=== PATIENT | female | born 1935 | race Caucasian/White ===

== ENCOUNTER 2016-08-18 11:50 | Inpatient (IN) | payer OTHER ==
[~2016-08-18] VITALS: Ht 149.9 cm; Wt 96.5 kg
[2016-08-18] VITALS (11 sets, daily range): BP systolic 107–153; BP diastolic 59–81; PULSE 73–97; TEMP 36.7–37.7; O2SAT 91–97; Ht 149.9 cm; Wt 96.5 kg
[~2016-08-18 11:50] MED LIST: ACET325T96 PO; ASPI325T45 PO; BUME1TAB PO; CHOL1000 PO; CYAN10005 PO; ISOS60TA25 PO; METO50TA16 PO; PHEN16.2 PO; PHN/100 PO; PRED-301 PO
[2016-08-18] MEDS ORDERED: SODIUM CHLORIDE 0.9% 500ML 500 ML IV STA (12:18)
[2016-08-18 12:29] LABS: BASO % 0.2 %; BASO ABS # 0.03 K/uL (0-0.2); COMPLETE YES; HEMATOCRIT 40.6 % (37-47); IG% 0.1 %; LYMPH % 14.6 %; LYMPH ABS # 2.08 K/uL (1.2-3.4); MEAN CELL VOLUME 96.9 fL (80-100); MEAN CORPUSCULAR HEMOGLOBIN 33.2 pg (25-34); MEAN CORPUSCULAR HGB CONC 34.2 g/dl (32-36); MEAN PLATELET VOLUME 10.5 fL (7.4-10.4); MONO % 9.5 %; NEUT % 71.6 %; PLATELET COUNT 307 K/uL (130-400); RED BLOOD COUNT 4.19 M/uL (4.2-5.4); WHITE BLOOD COUNT 14.24 K/uL (4.8-10.8)
[2016-08-18] MEDS ORDERED: NITROGLYCERIN 0.4 MG SL PER TAB CHARGE SL PRN ×2 (12:30→14:15)
[2016-08-18 12:35] LABS: BLOOD UREA NITROGEN 14 mg/dl (7-18); CALCIUM 9.2 mg/dl (8.5-10.1); CARBON DIOXIDE 30 mmol/L (21-32); CHLORIDE 104 mmol/L (98-107); GLUCOSE 124 mg/dl (70-99); POTASSIUM 4.2 mmol/L (3.5-5.1); SODIUM 141 mmol/L (136-145)
[2016-08-18 12:36] LABS: CREATININE 0.87 mg/dl (0.60-1.20)
[2016-08-18 12:37] LABS: BUN/CREATININE RATIO 16.2 (10-20)
--- NOTE | 2016-08-18 12:38 | DIAGNOSTIC IMAGING REPORT ---
SINGLE VIEW CHEST CLINICAL HISTORY: Atypical chest pain. FINDINGS: An AP, portable, upright chest radiograph is compared to study dated 02/17/2010. The examination is degraded by portable technique and apical lordotic positioning. The heart is enlarged and there is atherosclerotic calcification of the thoracic aorta. The pulmonary vasculature is noncongested. Chronic interstitial thickening similar to previous. No airspace consolidation, pleural effusion, or pneumothorax is seen. The skeletal structures are osteopenic. The bony thorax is grossly intact. Degenerative change and scoliosis are noted in the thoracic spine. A surgical anchor is present in the left humeral head. IMPRESSION: Cardiomegaly with no active disease in the chest. Electronically signed by: Raúl Canela M.D. 08/18/2016 12:37 PM Dictated Date/Time: 08/18/2016 12:36 PM
[2016-08-18 13:05] LABS: ALKALINE PHOSPHATASE 97 U/L (45-117); ALT/SGPT 15 U/L (12-78); AST/SGOT 23 U/L (15-37); CKMB/CK RATIO 4.2 (0-3.0)
[2016-08-18] MEDS ORDERED: HEPARIN SOD (PORCINE) 1000 UNIT/ML 10 ML VIAL ONE (13:21)
[2016-08-18] MEDS ORDERED: NiCARDipine HCL INJ 2.5 MG/ML 10 ML AMP ONE (13:21)
[2016-08-18] MEDS ORDERED: FENTANYL CITRATE INJ 50 MCG/1 ML 2 ML VIAL ONE (13:22)
[2016-08-18] MEDS ORDERED: MIDAZOLAM HCL 1 MG/ML 2ML VIAL ONE (13:22)
[2016-08-18] MEDS ORDERED: NITROGLYCERIN/D5W 100MCG/ML 20ML SYR ONE (13:23)
[2016-08-18] MEDS ORDERED: RANITIDINE HCL 25 MG/ML INJ ONE (13:38)
[2016-08-18] MEDS ORDERED: DiphenhydrAMINE HCL 50 MG/ML VIAL ONE (13:38)
[2016-08-18] MEDS ORDERED: METHYLPREDNISOLONE 125 MG VIAL ONE (13:38)
[2016-08-18] MEDS ORDERED: ONDANSETRON INJ 2 MG/ML 2 ML VIAL IV PRN (14:15)
[2016-08-18] MEDS ORDERED: SODIUM CHLORIDE 0.9% 1000ML 1,000 ML IV SCH (14:15)
--- NOTE | 2016-08-18 15:59 | CARDIOLOGY CONSULTATION ---
DATE OF CONSULTATION: 08/18/2016 DATE OF CONSULTATION: 08/18/2016. CONSULTATION REQUESTED BY: Dr. Ravi in the Emergency Department. REASON FOR CONSULTATION: Chest pain, high risk NSTEMI. HISTORY OF PRESENT ILLNESS: Ms. Wood is an 80-year-old woman with a history of polymyalgia rheumatica, hypertension, hyperlipidemia, prior TIA, who presented today in the setting of acute onset of chest pain. The patient states that she had been in her usual state of health. She does endorse that she has been recently stressed taking care of her . This morning she woke up with some chest tightness. Over the course of the morning that has progressed to 2 more severe pain 8/10 with pain radiating to her neck and left arm. Pain persisted for more than 3 hours before EMS was contacted. En route, she received sublingual nitroglycerin and received her third sublingual nitroglycerin in the Emergency Department with improvement in the pain 2-3/10 at time of interview. The patient denies having significant symptoms prior to this. No other prior history of coronary artery disease or heart issues. She did undergo heart catheterization back in 1999. PAST MEDICAL HISTORY: 1. Epilepsy. 2. TIA. 3. Hypertension. 4. Hiatal hernia. 5. Diverticulitis. 6. Peptic ulcer disease. 7. Hyperlipidemia. FAMILY HISTORY: Father had an NE in his late 40s or early 50s, has had multiple siblings with premature coronary artery disease. SOCIAL HISTORY: Lifelong never smoker. Denies significant alcohol use. 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 Primary caregiver for her sick . REVIEW OF SYSTEMS: A 10 point review of systems was not completed due to an urgent situation. HOME MEDICATIONS: Include Tylenol, aspirin, Bumex, cholecalciferol, vitamin B12, Imdur, metoprolol, phenobarbital, phenytoin and prednisone. ALLERGIES: AZITHROMYCIN, IODINE, SULFA AND SULFAMETHOXAZOLE. PHYSICAL EXAMINATION: VITAL SIGNS: Temperature 36.7, pulse 88, blood pressure 146/78. She is satting 94% on room air. GENERAL: The patient appears comfortable, no acute distress. HEAD, EYES, EARS, NOSE, AND THROAT: Her sclerae are anicteric. Oropharynx clear. Mucous membranes are moist. NECK: Supple with no lymphadenopathy. No clear jugular venous distention. LUNGS: Clear to auscultation bilaterally. HEART: Regular rate and rhythm with no appreciable murmurs, rubs or gallops. ABDOMEN: Soft, nontender, nondistended with positive bowel sounds. EXTREMITIES: Warm. She has trace lower extremity edema but has intact distal pulses including 2+ radial pulses bilaterally. SKIN: Shows no rashes or lesions. NEUROLOGIC: Grossly nonfocal. PSYCHIATRIC: He is alert and oriented and appropriate. LABORATORY DATA: White blood cell count 14.2, platelets 307, hemoglobin of 13.9. Sodium 141, potassium of 4.2, BUN of 14. LFTs within normal limits. Initial troponin positive at 0.66. Chest x-ray showed no acute cardiopulmonary process. EKG showed sinus rhythm with left axis deviation. Ventricular rate of 91. There are subtle ST elevations in V2 through V4 with diffuse T-wave inversions in the anterolateral leads. IMPRESSION AND PLAN: 1. High risk [id number] elevation myocardial infarction. 2. Borderline diabetes. 3. Hypertension. 4. Hyperlipidemia. 5. Prior history of transient ischemic attack. The patient here with typical angina, acute onset this morning. She has dynamic ST changes and a positive troponin on presentation. As the patient is having active chest pain feel that we should proceed with cardiac catheterization urgently. Discussed this with the patient including risks, benefits and alternatives to the procedure. She is willing to proceed. The patient has a questionable dye allergy in the past and will plan to pretreat prior to procedure. Further recommendations pending findings of cardiac catheterization. Thank you for allowing us to participate in the care of this patient. Please contact with any questions. MEENAKSHI
[2016-08-18] MEDS ORDERED: HEPARIN 25,000 UNIT/500ML D5W 500 ML IV PRN (16:30)
[2016-08-18 16:56] LABS: PARTIAL THROMBOPLASTIN RATIO 0.9
--- NOTE | 2016-08-18 17:23 | EMERGENCY ROOM VISIT NOTE ---
History Report prepared by Yevgeniy: Claudia Nguyen Under the Supervision of: Dr. Florin Ravi D.O. First contact with patient: 12:08 Chief Complaint: CHEST PAIN Stated Complaint: CHEST PAIN History of Present Illness The patient is a 80 year old female who presents to the Emergency Room with complaints of an episode of chest pain that began at 4 hours prior to arrival. She describes the pain as sharp and heavy. She notes the pain radiates up her neck and around to her shoulder and back. The patient notes that she was laying in bed when the pain began. The patient has a family history of cardiac events. She took 4 baby Aspirin before calling EMS. En route to the ED she was given Nitro which helped to relieve the chest pain. She denies pain down her arm. The patient has a history of hypertension and 2 strokes. Pt denies headache, change in vision, fevers, shortness of breath, nausea, vomiting, diarrhea, pain with urination, and melena. 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 A total of 10 systems reviewed and were otherwise negative. Past Medical & Surgical Medical Problems: (1) Diabetes (2) Diverticulitis (3) Hypertension (4) Seizure (5) Stomach ulcer Family History Diabetes mellitus FH: heart disease Hypertension Seizures Social History Smoking Status: Never Smoker Alcohol Use: none Drug Use: none Marital Status: Housing Status: lives with significant other Occupation Status: unemployed Current/Historical Medications Scheduled Aspirin (Aspirin), 325 MG PO DAILY Bumetanide (Bumex), 1 MG PO DAILY Cholecalciferol (Vitamin D3), 1 TAB PO DAILY Cyanocobalamin (Vitamin B-12), 1,000 MCG PO DAILY Isosorbide Mononitrate Ext Rel (Imdur Ext Rel), 60 MG PO QAM Metoprolol Tartrate (Lopressor) (Lopressor), 50 MG PO BID Phenobarbital (Phenobarbital), 2 TABS PO BID Phenytoin Sodium (Dilantin), 200 MG PO QPM Prednisone (Prednisone), 5 MG PO QAM Miscellaneous Medications Acetaminophen Tab (Tylenol), 650 MG PO Allergies Coded Allergies: Azithromycin (Verified Allergy, Intermediate, UNKNOWN, 06/22/15) Iodine (Verified Allergy, Mild, 06/22/15) Sulfa Antibiotics (Verified Allergy, Mild, `, 08/18/16) Sulfamethoxazole (Verified Allergy, Mild, 06/22/15) Physical Exam Vital Signs Date Time Temp Pulse Resp B/P Pulse Ox O2 Delivery O2 Flow Rate FiO2 08/18/16 14:30 93 16 133/68 95 Room Air 08/18/16 14:23 96 16 123/67 95 Room Air 08/18/16 14:08 96 16 145/84 95 Room Air 08/18/16 13:25 89 22 171/95 95 08/18/16 13:16 89 22 171/95 95 08/18/16 13:15 99 23 95 08/18/16 13:11 174/102 08/18/16 13:06 140/80 08/18/16 13:01 137/73 08/18/16 13:00 93 12 96 08/18/16 12:51 93 20 117/69 92 Room Air 08/18/16 12:45 91 20 142/77 96 Room Air 08/18/16 12:13 93 Room Air 08/18/16 12:04 86 08/18/16 12:00 36.7 88 22 146/78 94 Room Air 08/18/16 12:00 93 Room Air Physical Exam GENERAL: alert, sitting up in bed, disheveled appearing, well nourished, no distress, non-toxic EYE EXAM: normal conjunctiva OROPHARYNX: no exudate, no erythema, lips, buccal mucosa, and tongue normal and mucous membranes are moist NECK: supple, no nuchal rigidity, no adenopathy, non-tender LUNGS: Clear to auscultation. Normal chest wall mechanics HEART: systolic murmurs, S1 normal and S2 normal ABDOMEN: abdomen soft, non-tender, normo-active bowel sounds, no masses, no rebound or guarding. BACK: Back is symmetrical on inspection and there is no deformity, no midline tenderness, no CVA tenderness. SKIN: no rashes and no bruising UPPER EXTREMITIES: upper extremities are grossly normal. radial pulses equal bilaterally LOWER EXTREMITIES: Calves equal bilaterally. Faint putting edema. NEURO EXAM: Normal sensorium, cranial nerves II-XII grossly intact, normal speech, no gross weakness of arms, no gross weakness of legs. Medical Decision & Procedures ER Provider Diagnostic Interpretation: [id number]: A Chest One view study was reviewed, no fracture was seen. SINGLE VIEW CHEST CLINICAL HISTORY: Atypical chest pain. FINDINGS: An AP, portable, upright chest radiograph is compared to study dated 02/17/2010. The examination is degraded by portable technique and apical lordotic positioning. The heart is enlarged and there is atherosclerotic calcification of the thoracic aorta. The pulmonary vasculature is noncongested. Chronic interstitial thickening similar to previous. No airspace consolidation, pleural effusion, or pneumothorax is seen. The skeletal structures are osteopenic. The bony thorax is grossly intact. Degenerative change and scoliosis are noted in the thoracic spine. A surgical anchor is present in the left humeral head. IMPRESSION: Cardiomegaly with no active disease in the chest. Electronically signed by: Raúl Canela M.D. 08/18/2016 12:37 PM Dictated Date/Time: 08/18/2016 12:36 PM Laboratory Results 08/18/16 11:15 Red Blood Count 4.19, Mean Corpuscular Volume 96.9, Mean Corpuscular Hemoglobin 33.2, Mean Corpuscular Hemoglobin Concent 34.2, Mean Platelet Volume 10.5, Neutrophils (%) (Auto) 71.6, Lymphocytes (%) (Auto) 14.6, Monocytes (%) (Auto) 9.5, Eosinophils (%) (Auto) 4.0, Basophils (%) (Auto) 0.2, Neutrophils # (Auto) 10.19, Lymphocytes # (Auto) 2.08, Monocytes # (Auto) 1.35, Eosinophils # (Auto) 0.57, Basophils # (Auto) 0.03 08/18/16 11:15 Test 08/18/16 11:15 White Blood Count 14.24 K/uL (4.8-10.8) Red Blood Count 4.19 M/uL (4.2-5.4) Hemoglobin 13.9 g/dL (12.0-16.0) Hematocrit 40.6 % (37-47) Mean Corpuscular Volume 96.9 fL (80-100) Mean Corpuscular Hemoglobin 33.2 pg (25-34) Mean Corpuscular Hemoglobin Concent 34.2 g/dl (32-36) Platelet Count 307 K/uL (130-400) Mean Platelet Volume 10.5 fL (7.4-10.4) Neutrophils (%) (Auto) 71.6 % Lymphocytes (%) (Auto) 14.6 % Monocytes (%) (Auto) 9.5 % Eosinophils (%) (Auto) 4.0 % Basophils (%) (Auto) 0.2 % Neutrophils # (Auto) 10.19 K/uL (1.4-6.5) Lymphocytes # (Auto) 2.08 K/uL (1.2-3.4) Monocytes # (Auto) 1.35 K/uL (0.11-0.59) Eosinophils # (Auto) 0.57 K/uL (0-0.5) Basophils # (Auto) 0.03 K/uL (0-0.2) RDW Standard Deviation 48.4 fL (36.4-46.3) RDW Coefficient of Variation 13.6 % (11.5-14.5) Immature Granulocyte % (Auto) 0.1 % Immature Granulocyte # (Auto) 0.02 K/uL (0.00-0.02) Anion Gap 7.0 mmol/L (3-11) Est Creatinine Clear Calc Drug Dose 50.9 ml/min Estimated GFR () 72.9 Estimated GFR (Non- 62.9 BUN/Creatinine Ratio 16.2 (10-20) Calcium Level 9.2 mg/dl (8.5-10.1) Total Bilirubin 0.6 mg/dl (0.2-1) Direct Bilirubin < 0.1 mg/dl (0-0.2) Aspartate Amino Transf (AST/SGOT) 23 U/L (15-37) Alanine Aminotransferase (ALT/SGPT) 15 U/L (12-78) Alkaline Phosphatase 97 U/L (45-117) Total Creatine Kinase 127 U/L (26-192) Creatine Kinase MB 5.3 ng/ml (0.5-3.6) Creatine Kinase MB Ratio 4.2 (0-3.0) Troponin I 0.660 ng/ml (0-0.045) Total Protein 8.0 gm/dl (6.4-8.2) Albumin 3.8 gm/dl (3.4-5.0) Laboratory results per my review. Medications Administered Medications (Trade) Dose Ordered Sig/Jazlyn Route Start Time Stop Time Status Last Admin Dose Admin Nitroglycerin 0.4 mg 0.4 mg Q5M PRN SL 08/18/16 12:30 08/18/16 15:13 DC 08/18/16 12:44 0.4 MG Sodium Chloride (Nss 500ml) 500 ml @ 999 mls/hr Q31M STAT IV 08/18/16 12:18 08/18/16 12:48 DC 08/18/16 12:47 999 MLS/HR Heparin Sodium (Porcine) (Heparin Iv Bolus) 10,000 unit STK-MED ONCE .ROUTE 08/18/16 13:21 08/18/16 13:22 DC 08/18/16 13:21 5,000 UNIT Fentanyl Citrate (Fentanyl Inj) 100 mcg STK-MED ONCE .ROUTE 08/18/16 13:22 08/18/16 13:23 DC 08/18/16 13:22 25 MCG Midazolam HCl (Versed Inj) 2 mg STK-MED ONCE .ROUTE 08/18/16 13:22 08/18/16 13:23 DC 08/18/16 13:22 1 MG Ranitidine HCl (zANTac IV) 50 mg STK-MED ONCE .ROUTE 08/18/16 13:38 08/18/16 13:39 DC 08/18/16 13:38 50 MG Methylprednisolone Sodium Succinate (Solu-Medrol IV) 125 mg STK-MED ONCE .ROUTE 08/18/16 13:38 08/18/16 13:39 DC 08/18/16 13:38 125 MG Diphenhydramine HCl 50 mg 50 mg STK-MED ONCE .ROUTE 08/18/16 13:38 08/18/16 13:39 DC 08/18/16 13:50 25 MG Sodium Chloride (Nss 1000ml) 1,000 ml @ 75 mls/hr [id number] IV 08/18/16 14:15 08/18/16 20:54 08/18/16 15:00 75 MLS/HR ECG Indication: chest pain Rate (beats per minute): 91 Rhythm: normal sinus Findings: other (left axis, flipped T wave, slight ST elevation) ED Course ED COURSE: Vital signs were reviewed and showed hypertensive vitals. The patients medical record was reviewed The above diagnostic studies were performed and reviewed. ED treatments and interventions as stated above. 1211: The patient was evaluated in room C11. A complete history and physical examination was performed. 1218: Sodium Chloride 500 ml @ 999 mls/hr IV. 1230: Nitrostat Tab 0.4 mg SL. 1258: I spoke with Dr. Coppola - Cardiology. He will come take the patient to livestock laborer. 1311: I reviewed the patient's case with Dr. Ferguson. She will evaluate the patient for further management. She is aware the patient is going to the livestock laborer with Dr. Coppola. 1320: Upon reevaluation, the patient is hemodynamically stable.I discussed my findings with the patient and she understands and agrees with the treatment plan. Based on the patients age, coexisting illnesses, exam and lab findings the decision to treat as an inpatient was made. The patient remained stable while under my care. The patient will be evaluated for further management. Medical Decision Differential diagnoses includes but is not limited to acute coronary syndrome, myocardial infarction, pericarditis, pulmonary embolus, aortic dissection, pneumonia, pneumothorax, musculoskeletal, shingles, esophageal. The patient is a 80 year old female who presents to the ED with complaints of chest pain associated with left arm pain and jaw pain. EKG shows slight ST segment elevation in the anterior leads along with flipped T waves. Labs were remarkable for a mild leukocytosis and a troponin of 0.6. Based on the EKG and following nitroglycerin without improvement initially the process improvement manager was called but I did not receive a call back and consequently I called the interventionalist. Patient was evaluated at bedside by Dr. Coppola and taken emergently to the [facility]. Patient had received aspirin prior to arrival. Patient/family were updated at bedside. Consults Time Called: [phone] Consulting Physician: Dr. Coppola - Cardiology Returned Call: [phone] Coppola - Cardiology. He will come take the patient to livestock laborer. Additional Consults: Time Called: 1310 Consulted Physician: Dr. Ferguson - [facility] Returned Call: [phone] Additional Comments: I reviewed the patient's case with Dr. Ferguson. She will evaluate the patient for further management. She is aware the patient is going to the livestock laborer with Dr. Coppola. Impression Primary Impression: NSTEMI (non-ST elevated myocardial infarction) Scribe Attestation The scribe's documentation has been prepared under my direction and personally reviewed by me in its entirety. I confirm that the note above accurately reflects all work, treatment, procedures, and medical decision making performed by me. Departure Information Dispostion Being Evaluated By Hospitalist Referrals Jerad Wolfe M.D. (PCP)
--- NOTE | 2016-08-18 17:29 | Procedure Note ---
Pre-Mod Sedation Assessment General Date of Moderate Sedation: August 18, 2016. Vital Signs: Vital Signs Past 12 Hours Date Time Temp Pulse Resp B/P Pulse Ox O2 Delivery O2 Flow Rate FiO2 08/18/16 16:15 37.3 83 22 112/59 92 Room Air 08/18/16 15:45 37.1 86 22 107/66 95 Room Air 08/18/16 15:30 37.7 91 22 135/75 91 Room Air 08/18/16 15:15 37.5 87 22 118/74 96 Room Air 08/18/16 15:00 36.7 93 16 140/68 95 Room Air 08/18/16 15:00 37.7 90 22 126/70 95 Room Air 08/18/16 14:40 93 16 140/68 95 Room Air 08/18/16 14:30 93 16 133/68 95 Room Air 08/18/16 14:23 96 16 123/67 95 Room Air 08/18/16 14:08 96 16 145/84 95 Room Air 08/18/16 13:25 89 22 171/95 95 08/18/16 13:16 89 22 171/95 95 08/18/16 13:15 99 23 95 08/18/16 13:11 174/102 08/18/16 13:06 140/80 08/18/16 13:01 137/73 08/18/16 13:00 93 12 96 08/18/16 12:51 93 20 117/69 92 Room Air 08/18/16 12:45 91 20 142/77 96 Room Air 08/18/16 12:13 93 Room Air 08/18/16 12:04 86 08/18/16 12:00 36.7 88 22 146/78 94 Room Air 08/18/16 12:00 93 Room Air Review Cardiovascular: regular rate, rhythm, no edema Abdomen: normal bowel sounds, non tender Lungs: chest non-tender, lungs clear Airway Class: II Pre-Sedation Airway Assessment Oral Cavity: WNL Able to Visualize Vocal Cords: No Short Thick Neck: No Hx of Sleep Apnea: No Smoking Status: Never Smoker Mallampati Classification: Class II ASA Classification: Class II Procedure Planning Contraindications-for Mod Sed: None Yes Notes The planned sedation has been discussed with the patient and consent obtained. I have identified the patient, determined the appropriateness of sedation and have assessed the patient immediately prior to the procedure. All medicine(s) and interventions are by my order.
[2016-08-18] MEDS ORDERED: BUMETANIDE 1 MG TAB PO ONE (17:30)
--- NOTE | 2016-08-18 17:31 | Procedure Note ---
Post-Mod Sedation Assessment General Date of Moderate Sedation August 18, 2016. Vital Signs: Vital Signs Past 12 Hours Date Time Temp Pulse Resp B/P Pulse Ox O2 Delivery O2 Flow Rate FiO2 08/18/16 16:15 37.3 83 22 112/59 92 Room Air 08/18/16 15:45 37.1 86 22 107/66 95 Room Air 08/18/16 15:30 37.7 91 22 135/75 91 Room Air 08/18/16 15:15 37.5 87 22 118/74 96 Room Air 08/18/16 15:00 36.7 93 16 140/68 95 Room Air 08/18/16 15:00 37.7 90 22 126/70 95 Room Air 08/18/16 14:40 93 16 140/68 95 Room Air 08/18/16 14:30 93 16 133/68 95 Room Air 08/18/16 14:23 96 16 123/67 95 Room Air 08/18/16 14:08 96 16 145/84 95 Room Air 08/18/16 13:25 89 22 171/95 95 08/18/16 13:16 89 22 171/95 95 08/18/16 13:15 99 23 95 08/18/16 13:11 174/102 08/18/16 13:06 140/80 08/18/16 13:01 137/73 08/18/16 13:00 93 12 96 08/18/16 12:51 93 20 117/69 92 Room Air 08/18/16 12:45 91 20 142/77 96 Room Air 08/18/16 12:13 93 Room Air 08/18/16 12:04 86 08/18/16 12:00 36.7 88 22 146/78 94 Room Air 08/18/16 12:00 93 Room Air Review - Discharge Criteria Vital Signs Stable: Yes Alert/Oriented/Conversant: Yes Returned to Baseline Mental St: Yes Nausea Absent/Minimal: Yes Pain/Discomfort/Absent/Minimal: Yes Normal/Baseline Respirations: Yes Active Bleeding?: No Pt Received D/C Instructions: N/A Prescriptions Given: None Specific Proced. D/C Criteria Distal Pulses Present (Cardiac: Yes Groin site assessed-Card Cath: N/A Voided Prior To Discharge: N/A Discharged Patients Adult Escort/Transportation: Yes
--- NOTE | 2016-08-18 17:48 | History and Physical ---
History & Physical Date & Time of Service: August 18, 2016 at 17:40 Chief Complaint: Chest Pain, Elevated Triponin Primary Care Physician: Jerad Wolfe M.D. History of Present Illness Source: patient 80 y/o F who was a heart alert for chest pain earlier today. She underwent a cath with Dr. Coppola. No stents placed but she relays that she was told "the bottom part of my heart isn't moving". Pt had a cath in 1999 for chest pain, also no stents placed. Chest pain is gone at this time. No SOB. She ate without issue. Pt does usually take bumex 1mg QD for LE swelling. Due to coming to the ED this AM, she missed this dose and feels her LE swelling is increasing. When this happens, she needs to take her bumex or else she gets further swelling by AM. She does state that she feels tired. Pt denies fever, abd pain, n/v/c/d, LE pain. ROS as noted above, otherwise neg. Past Medical/Surgical History Medical Problems: ( (2) Diverticulitis Status: Chronic (3) Hypertension Status: Chronic (4) Seizure Status: Chronic (5) Stomach ulcer Status: Chronic Pre-DM Seizure hx, last in 1979 Family History Family history was reviewed; no changes noted. Social History Smoking Status: Never Smoker Alcohol Use: none Drug Use: none Marital Status: Housing status: lives with family Occupational Status: unemployed Immunizations History of Influenza Vaccine: Yes Influenza Vaccine Date: Feb 19, 2010 History of Tetanus Vaccine?: Yes Tetanus Immunization Date: Feb 19, 2004 History of Pneumococcal: Yes Pneumococcal Date: Feb 18, 2010 History of Hepatitis B Vaccine: No Multi-Drug Resistant Organisms History of MDRO: No Allergies Coded Allergies: Azithromycin (Verified Allergy, Intermediate, UNKNOWN, 06/22/15) Iodine (Verified Allergy, Mild, 06/22/15) Sulfa Antibiotics (Verified Allergy, Mild, `, 08/18/16) Sulfamethoxazole (Verified Allergy, Mild, 06/22/15) Home Medications Scheduled Aspirin (Aspirin), 325 MG PO DAILY Bumetanide (Bumex), 1 MG PO DAILY Cholecalciferol (Vitamin D3), 1 TAB PO DAILY Cyanocobalamin (Vitamin B-12), 1,000 MCG PO DAILY Isosorbide Mononitrate Ext Rel (Imdur Ext Rel), 60 MG PO QAM Metoprolol Tartrate (Lopressor) (Lopressor), 50 MG PO BID Phenobarbital (Phenobarbital), 2 TABS PO BID Phenytoin Sodium (Dilantin), 200 MG PO QPM Prednisone (Prednisone), 5 MG PO QAM Miscellaneous Medications Acetaminophen Tab (Tylenol), 650 MG PO Physical Exam Vital Signs Date Time Temp Pulse Resp B/P Pulse Ox O2 Delivery O2 Flow Rate FiO2 08/18/16 16:15 37.3 83 22 112/59 92 Room Air 08/18/16 15:45 37.1 86 22 107/66 95 Room Air 08/18/16 15:30 37.7 91 22 135/75 91 Room Air 08/18/16 15:15 37.5 87 22 118/74 96 Room Air 08/18/16 15:00 36.7 93 16 140/68 95 Room Air 08/18/16 15:00 37.7 90 22 126/70 95 Room Air 08/18/16 14:40 93 16 140/68 95 Room Air 08/18/16 14:30 93 16 133/68 95 Room Air 08/18/16 14:23 96 16 123/67 95 Room Air 08/18/16 14:08 96 16 145/84 95 Room Air 08/18/16 13:25 89 22 171/95 95 08/18/16 13:16 89 22 171/95 95 08/18/16 13:15 99 23 95 08/18/16 13:11 174/102 08/18/16 13:06 140/80 08/18/16 13:01 137/73 08/18/16 13:00 93 12 96 08/18/16 12:51 93 20 117/69 92 Room Air 08/18/16 12:45 91 20 142/77 96 Room Air 08/18/16 12:13 93 Room Air 08/18/16 12:04 86 08/18/16 12:00 36.7 88 22 146/78 94 Room Air 08/18/16 12:00 93 Room Air General Appearance: WD/WN, no apparent distress Head: normocephalic, atraumatic Respiratory/Chest: normal breath sounds, no respiratory distress Cardiovascular: regular rate, rhythm, normal peripheral pulses Abdomen/GI: non tender, soft Extremities/Musculoskelatal: no calf tenderness, + pedal edema (1+ pitting edema b/l) Neurologic/Psych: alert, normal mood/affect, oriented x 3 Skin: normal color, warm/dry Diagnostics Laboratory Results Results Past 24 Hours Test 08/18/16 11:15 08/18/16 16:38 Range/Units White Blood Count 14.24 4.8-10.8 K/uL Red Blood Count 4.19 4.2-5.4 M/uL Hemoglobin 13.9 12.0-16.0 g/dL Hematocrit 40.6 37-47 % Mean Corpuscular Volume 96.9 80-100 fL Mean Corpuscular Hemoglobin 33.2 25-34 pg Mean Corpuscular Hemoglobin Concent 34.2 32-36 g/dl Platelet Count 307 130-400 K/uL Mean Platelet Volume 10.5 7.4-10.4 fL Neutrophils (%) (Auto) 71.6 % Lymphocytes (%) (Auto) 14.6 % Monocytes (%) (Auto) 9.5 % Eosinophils (%) (Auto) 4.0 % Basophils (%) (Auto) 0.2 % Neutrophils # (Auto) 10.19 1.4-6.5 K/uL Lymphocytes # (Auto) 2.08 1.2-3.4 K/uL Monocytes # (Auto) 1.35 0.11-0.59 K/uL Eosinophils # (Auto) 0.57 0-0.5 K/uL Basophils # (Auto) 0.03 0-0.2 K/uL RDW Standard Deviation 48.4 36.4-46.3 fL RDW Coefficient of Variation 13.6 11.5-14.5 % Immature Granulocyte % (Auto) 0.1 % Immature Granulocyte # (Auto) 0.02 0.00-0.02 K/uL Sodium Level 141 136-145 mmol/L Potassium Level 4.2 3.5-5.1 mmol/L Chloride Level 104 98-107 mmol/L Carbon Dioxide Level 30 21-32 mmol/L Anion Gap 7.0 3-11 mmol/L Blood Urea Nitrogen 14 7-18 mg/dl Creatinine 0.87 0.60-1.20 mg/dl Est Creatinine Clear Calc Drug Dose 50.9 ml/min Estimated GFR () 72.9 Estimated GFR (Non- 62.9 BUN/Creatinine Ratio 16.2 10-20 Random Glucose 124 70-99 mg/dl Calcium Level 9.2 8.5-10.1 mg/dl Total Bilirubin 0.6 0.2-1 mg/dl Direct Bilirubin < 0.1 0-0.2 mg/dl Aspartate Amino Transf (AST/SGOT) 23 15-37 U/L Alanine Aminotransferase (ALT/SGPT) 15 12-78 U/L Alkaline Phosphatase 97 45-117 U/L Total Creatine Kinase 127 26-192 U/L Creatine Kinase MB 5.3 0.5-3.6 ng/ml Creatine Kinase MB Ratio 4.2 0-3.0 Troponin I 0.660 0-0.045 ng/ml Total Protein 8.0 6.4-8.2 gm/dl Albumin 3.8 3.4-5.0 gm/dl Activated Partial Thromboplast Time 23.8 21.0-31.0 SECONDS Partial Thromboplastin Ratio 0.9 Diagnostic Radiology CXR neg for acute Impression Assessment and Plan 80 y/o F who was admitted s/p Heart Alert earlier this AM. Chest pain: s/p cath this AM, reports no stents placed As per Dr. Coppola EKG with T wave inversions and mild ST elevation Trop with modest elevation HTN: meds as per cardiology s/p cath Seizures: last was in 1979, continue home meds Fluid overload: will give bumex dose given pt missed AM dose and is having increased LE swelling Uncertain of CHF status Pt follows strict no Na diet Other: Anticoagulation as per cardiology No Na diet Level of Care Telemetry Advanced Directives Existing Living Will: No Existing Power of Veneer Clipper: No VTE Prophylaxis VTE Risk Assessment Done? Y/N: Yes Risk Level: Moderate
[2016-08-18] MEDS ORDERED: CLOPIDOGREL BISULFATE 300 MG TAB PO STA (17:55)
--- NOTE | 2016-08-18 17:55 | Cardiac Catheterization ---
Procedure Note Procedure Date August 18, 2016. Pre-Procedure Diagnosis Non STEMI AUC Score 8 Post-Procedure Diagnosis Moderate CAD, Normal Intracardiac Pressures Procedure(s) Performed Coronary Angiography, Left Heart Cath [employer] Dr. Coppola Bottle Blowing Machine Tender(s) Felicity Estimated Blood Loss 20 Medication(s) Fentanyl, Heparin, Nitroglycerin, Versed, Lidocaine 1% Summary of Findings Indication: High-risk NSTEMi Access: 6Fr Slender Right Radial Artery Catheters: Imbler, Pigtail Findings: LM - Luminal irregularities LAD - 40% diffuse, mildly calcified proximal disease; mid segment very tortuous with focal 30-40% stenosis; distal vessel small, tortuous with diffuse mild disease Circumflex - Gives off large high OM1 and OM2. Mid circumflex with 40% stenosis ; OM1 luminal irregularities; proximal OM2 with 40% stenosis. RCA - Dominant, very tortuous, mild diffuse disease in mid segment; 60-70% early -distal focal stenosis; mild ostial PDA/PAV disease LVEDP - 24 LVEF 40%; Akinetic anterior apex, apex and interior apex. Basal segments hyperkinetic Arterial Closure: TR Band Summary: 1. Moderate multivessel coronary artery disease - 40% diffuse proximal LAD - 40% mid circumflex, proximal OM2 - 60-70% distal RCA 2. Elevated intracardiac filling pressure 3. Mild to moderate LV dysfunction with apical akinesis and hyperkinetic base consistent with takotsubo (stress-induced) cardiomyopathy. Recommendations: Post procedure patient chest pain free. Findings most consistent with stress induced cardiomyopathy and recommend medical management. Admit to PCU for monitoring Echo to further assess LV function Trend troponins until peak Start Plavix, continue ASA Continue home metoprolol, start STORM inhibitor Resume home bumex tomorrow Can discontinue heparin Start statin Medical management of moderate CAD; further ischemic assessment as an outpatient as necessary. Hemodynamics Rest Ao: -- Final Ao: -- LV: -- Recommendations Medical therapy and/or Counseling Specimens None Radiation Exposure (mGy) 366 Contrast (mls) 75 Visi Fluids (cc crystalloids) -- Drains None Anesthesia Moderate Procedural Complication(s) None Disposition PCU ACC Data Cardiac Status Clinical evaluation leading to the procedure CAD Presntation: Non STEMI Anginal Classification: CCS IV Heart Failure: No, NYHA Class: CCS I Cardiogenic Shock w/in 24Hrs: No Cardiac Arrest w/in 24Hrs: No Imaging studies past 6 months: No Stress studies past 6 months: No Standard Exercise Stress Test: No Stress Echocardiogram: No Stress Testing w/SPECT MPI: No Cardiac CTA: No Coronary Anatomy Dominant: Right Left Main (% Stenosis): Normal LAD (% Stenosis): Proximal (40) Circumflex (% Stenosis): Mid (40) OM2 (% Stenosis): Proximal (40) RCA (% Stenosis): Distal (60-70) Left Ventricular Angiography EF (%): 40 Wall Motion: Apical Mitral Regurgitation: None Diagnostic Physician's Name: Gutierrez Coppola MD Status: Urgent Closure Device Percutaneous Entry Location: Radial Closure Device: Radial Band Recommendations: Medical therapy and/or Counseling Intraprocedure Events Significant Dissection: No Perforation: No
[2016-08-18] MEDS ORDERED: PNEUMOCOCCAL ADMINISTRATION CHARGE ONE (21:00)
[2016-08-18] MEDS ORDERED: METOPROLOL TARTRATE 25 MG TAB PO SCH (21:00)
[2016-08-18] MEDS ORDERED: PNEUMOCOCCAL POLYSACCHARIDES 25 MCG/0.5 ML VIAL/SYR IM. ONE (21:00)
[2016-08-18] MEDS: PHENYTOIN SODIUM ER 100 MG CAP PO SCH (21:10)
[2016-08-18] MEDS: METOPROLOL TARTRATE 50 MG TAB PO SCH (21:10)
[2016-08-18] MEDS: PHENOBARBITAL 32.4 MG TAB PO SCH (21:12)
[2016-08-19 00:15] LABS: PARTIAL THROMBOPLASTIN RATIO 1.1
[2016-08-19 04:32] VITALS: BP 105/65; PULSE 75; TEMP 36.9; O2SAT 93
[2016-08-19 06:12] LABS: BASO % 0.2 %; BASO ABS # 0.02 K/uL (0-0.2); COMPLETE YES; EOS % 1.6 %; IG% 0.3 %; LYMPH % 23.9 %; LYMPH ABS # 2.68 K/uL (1.2-3.4); MEAN CELL VOLUME 95.5 fL (80-100); MEAN CORPUSCULAR HEMOGLOBIN 30.8 pg (25-34); MEAN CORPUSCULAR HGB CONC 32.2 g/dl (32-36); MEAN PLATELET VOLUME 9.6 fL (7.4-10.4); MONO % 11.6 %; NEUT % 62.4 %; PLATELET COUNT 248 K/uL (130-400); RED BLOOD COUNT 3.77 M/uL (4.2-5.4); WHITE BLOOD COUNT 11.21 K/uL (4.8-10.8)
[2016-08-19 07:11] LABS: BUN/CREATININE RATIO 17.6 (10-20); CALCIUM 8.2 mg/dl (8.5-10.1); CHOLESTEROL/HDL RATIO 3.1; CREATININE 0.77 mg/dl (0.60-1.20); POTASSIUM 3.5 mmol/L (3.5-5.1)
[2016-08-19 08:00] VITALS: BP 116/68; PULSE 72; TEMP 36.9; O2SAT 94
[2016-08-19] MEDS: ATORVASTATIN 40 MG TAB PO SCH (08:00)
[2016-08-19] MEDS: BUMETANIDE 1 MG TAB PO SCH (08:00)
[2016-08-19] MEDS: ISOSORBIDE MONONITRATE 60 MG TABCR PO SCH (08:00)
[2016-08-19] MEDS: ASPIRIN 81 MG ECTAB PO SCH (08:00)
[2016-08-19] MEDS: LISINOPRIL 5 MG TAB PO SCH (08:01)
[2016-08-19] MEDS: METOPROLOL TARTRATE 50 MG TAB PO SCH (08:01)
[2016-08-19] MEDS: CLOPIDOGREL BISULFATE 75 MG TAB PO SCH (08:01)
[2016-08-19] MEDS: PHENOBARBITAL 32.4 MG TAB PO SCH ×2 (08:02→21:11)
[2016-08-19 09:22] LABS: ESTIMATED AVERAGE GLUCOSE 128 mg/dl; HA1C FLAG Normal (Normal)
[2016-08-19] MEDS ORDERED: PERFLUTREN LIPID MICROSPHERE (DEFINITY) IV ONE (09:24)
[2016-08-19 12:00] VITALS: BP 132/74; PULSE 73; TEMP 36.7; O2SAT 96
--- NOTE | 2016-08-19 13:27 | ECHOCARDIOGRAM REPORT ---
*NOTICE TO RECEIVING CONSTITUTION PARTY AGENCY This information is strictly Confidential and protected under [place] law. [place] law prohibits you from making any further disclosure of this information unless further disclosure is expressly permitted by the written consent of the person to whom it pertains or is authorized by law. A general authorization for the release of medical or other information is not sufficient for this purpose. Hospital accepts no responsibility if the information is made available to any other person, INCLUDING THE PATIENT. Interpretation Summary * Name: SCOTT ARIAS Study Date: 08/19/2016 09:01 AM BP: 140/68 mmHg * Patient Location: C.2T\S\S242\S\1 HR: 79 * : 1935 (M/d/yyyy) Gender: Female Height: 59 in * Age: 80 yrs Ethnicity: CA Weight: 201 lb * Ordering Physician: Gutierrez Coppola * Referring Physician: Self, Referred * Performed By: Ko Taylor RDCS * * Reason For Study: AMI * BSA: 1.8 m2 * -- Conclusions -- * 1. Normal left ventricular size with mildly to moderately reduced systolic function. Estimated EF 40%. Hypokinesis of the mid lateral, mid anterior, mid septal wall segments. Akinesis of the mid anterior septum. Distal wall segments and apex appear akinetic to dyskinetic. No apical thrombus visualized. Severe concentric left ventricular hypertrophy. Type 1 diastolic dysfunction. * 2. Aortic valve sclerosis mild, without significant aortic valvular stenosis. * 3. Mild aortic regurgitation. * 4. Normal estimated right ventricular systolic pressure; 32 mmHg. * 5. Technically difficult study, enhanced with IV Definity. * 6. No prior study available for comparison. Procedure Details * A complete two-dimensional transthoracic echocardiogram was performed (2D, M-mode, Doppler and color flow Doppler). * The study was technically difficult. * There were technical limitations due to patient'sbody habitus * The study was technically difficult, but visualization was adequate with the administration of Definity ultrasound contrast. * A contrast injection of Definity was performed to improve assessment of LV function. * Contrast was injected into an intravenous site in the left arm. * One vial of Definity ultrasound contrast was diluted in normal saline to a total volume of 10 ml. A total of '5' ml of solution was administered during imaging. * Lot # [id number] of Definity utilized for procedure. * Expiration date [id number]. * The attending nurse who injected the contrast agent was GISEL Almeida. Left Ventricle * Normal left ventricular size with mildly to moderately reduced systolic function. Estimated EF 40%. Hypokinesis of the mid lateral, mid anterior, mid septal wall segments. Akinesis of the mid anterior septum. Distal wall segments and apex appear akinetic to dyskinetic. No apical thrombus visualized. Severe concentric left ventricular hypertrophy. Type 1 diastolic dysfunction. Right Ventricle * The right ventricle is normal in size and function. * The right ventricular systolic function is normal as assessed by tricuspid annular plane systolic excursion (TAPSE) (normal >1.5 cm). Atria * The left atrial size is normal. * Right atrial size is normal. * There is no evidence of atrial septal defect, but resolution does not allow assessment for a patent foramen ovale. Mitral Valve * The mitral valve is grossly normal. * There is no mitral valve stenosis. * Significant mitral regurgitation is absent. Tricuspid Valve * The tricuspid valve is not well visualized, but is grossly normal. * There is no tricuspid stenosis. * There is trace tricuspid regurgitation. Aortic Valve * The aortic valve is trileaflet. * Aortic valve sclerosis mild, without significant aortic valvular stenosis. * No hemodynamically significant valvular aortic stenosis. * Mild aortic regurgitation. Pulmonic Valve * The pulmonary valve is inadequately visualized, but the Doppler data is adequate for interpretation. * There is no pulmonic valvular stenosis. * There is no significant pulmonary regurgitation. Great Vessels * The aortic root is normal size. * Normal pulmonary venous flow pattern. Pericardium/Pleural * Trace pericardial effusion. Great Vessels * Normal inferior vena cava size and collapsability with sniff indicates a normal right atrial pressure of 3 mmHg MMode 2D Measurements and Calculations IVSd 1.7 cm IVSs 2.6 cm LVIDd 4.5 cm LVIDs 2.5 cm LVPWd 1.5 cm LVPWs 2.3 cm IVS/LVPW 1.1 FS 45.1 % EDV(Teich) 94.3 ml ESV(Teich) 22.1 ml EF(Teich) 76.5 % EDV(cubed) 93.5 ml ESV(cubed) 15.5 ml EF(cubed) 83.5 % % IVS thick 53.1 % % LVPW thick 54.0 % LV mass(C)d 301.4 grams LV mass(C)dI 163.1 grams/m\S\2 LV mass(C)s 315.6 grams LV mass(C)sI 170.8 grams/m\S\2 SV(Teich) 72.2 ml SI(Teich) 39.1 ml/m\S\2 SV(cubed) 78.0 ml SI(cubed) 42.2 ml/m\S\2 EPSS 0.97 cm Ao root diam 3.2 cm Ao root area 8.2 cm\S\2 ACS 1.2 cm LA dimension 4.3 cm LA/Ao 1.3 LVOT diam 2.0 cm LVOT area 3.3 cm\S\2 LVAd ap4 24.2 cm\S\2 LVLd ap4 6.9 cm EDV(MOD-sp4) 80.6 ml EDV(sp4-el) 83.6 ml LVAs ap4 18.2 cm\S\2 LVLs ap4 6.7 cm ESV(MOD-sp4) 51.0 ml ESV(sp4-el) 51.8 ml EF(MOD-sp4) 36.8 % EF(sp4-el) 38.1 % LVAd ap2 32.5 cm\S\2 LVLd ap2 8.9 cm EDV(MOD-sp2) 89.4 ml EDV(sp2-el) 92.7 ml LVAs ap2 18.6 cm\S\2 LVLs ap2 6.7 cm ESV(MOD-sp2) 46.9 ml ESV(sp2-el) 48.5 ml EF(MOD-sp2) 47.5 % EF(sp2-el) 47.7 % LVLd %diff 4.3 % EDV(MOD-bp) 91.2 ml LVLs %diff 0.52 % ESV(MOD-bp) 46.6 ml EF(MOD-bp) 49.0 % SV(MOD-sp4) 29.6 ml SI(MOD-sp4) 16.0 ml/m\S\2 SV(MOD-sp2) 42.5 ml SI(MOD-sp2) 23.0 ml/m\S\2 SV(MOD-bp) 44.7 ml SI(MOD-bp) 24.2 ml/m\S\2 SV(sp4-el) 31.9 ml SI(sp4-el) 17.2 ml/m\S\2 SV(sp2-el) 44.2 ml SI(sp2-el) 23.9 ml/m\S\2 Doppler Measurements and Calculations MV E max susan 86.4 cm/sec MV A max susan 112.0 cm/sec MV E/A 0.77 MV dec time 0.19 sec Ao V2 max 195.5 cm/sec Ao max PG 15.3 mmHg Ao max PG (full) 9.7 mmHg Ao V2 mean 137.0 cm/sec Ao mean PG 8.4 mmHg Ao mean PG (full) 5.5 mmHg Ao V2 VTI 39.6 cm JOSUÉ(I,A) 2.1 cm\S\2 JOSUÉ(I,D) 2.1 cm\S\2 JOSUÉ(V,A) 2.0 cm\S\2 JOSUÉ(V,D) 2.0 cm\S\2 AI max susan 321.0 cm/sec AI max PG 41.2 mmHg AI dec slope 235.0 cm/sec\S\2 AI P1/2t 400.1 msec LV V1 max PG 5.6 mmHg LV V1 mean PG 2.9 mmHg LV V1 max 118.3 cm/sec LV V1 mean 78.2 cm/sec LV V1 VTI 25.6 cm SV(Ao) 322.8 ml SI(Ao) 174.7 ml/m\S\2 SV(LVOT) 83.6 ml SI(LVOT) 45.2 ml/m\S\2 PA V2 max 108.6 cm/sec PA max PG 4.7 mmHg TR max susan 267.0 cm/sec RVSP(TR) 31.5 mmHg RAP systole 3.0 mmHg
[2016-08-19] MEDS ORDERED: METOPROLOL SUCC 50MG EXT REL TAB PO STA (14:49)
--- NOTE | 2016-08-19 15:11 | Hospitalist Progress Note ---
Hospitalist Progress Note Date of Service August 19, 2016. (Fernando Avina, CODI) Subjective Pt evaluation today including: conversation w/ patient, physical exam, chart review, lab review, review of studies, conversation w/ sap ppm consultant, review of inpatient medication list Pain: no chest pain PO Intake: tolerating PO Voiding: no voiding problems denies chest pain pain between shoulder blades has subsided no shortness of breath Constitutional: No chills, No fatigue, No fever, No problem reported, No see HPI, No sweats, No weakness, No weight loss Eyes: No diplopia, No discharge, No eye pain, No problem reported, No redness, No see HPI, No worsening of vision ENT: No dental problems, No hearing loss, No nasal symptoms, No problem reported, No see HPI, No sore throat, No tinnitus, No trouble swallowing, No unusual epistaxis Respiratory: No cough, No dyspnea at rest, No dyspnea on exertion, No hemoptysis, No problem reported, No see HPI, No shortness of breath, No sputum, No wheezing Cardiovascular: No PND, No chest pain, No claudication, No edema, No orthopnea, No palpitations, No problem reported, No see HPI Abdomen: No GI bleeding, No constipation, No diarrhea, No nausea, No pain, No problem reported, No see HPI, No vomiting Musculoskeletal: No calf pain, No joint pain, No muscle pain, No problem reported, No see HPI, No swelling Neurologic: No balance problems, No memory loss, No numbness/tingling, No paralysis, No problem reported, No see HPI, No vertigo, No weakness Skin: No bleeding, No color change, No itch, No new/changing skin lesions, No problem reported, No rash, No see HPI (Fernando Avina, CODI) Medications reviewed (Fernando Avina, CODI) Objective Vital Signs Date Time Temp Pulse Resp B/P Pulse Ox O2 Delivery O2 Flow Rate FiO2 08/19/16 04:32 36.9 75 18 105/65 93 Room Air 08/19/16 04:00 Room Air 08/18/16 23:57 37.1 73 18 111/72 95 Room Air 08/18/16 23:30 Room Air 08/18/16 20:06 93 Room Air 08/18/16 19:45 37.6 95 22 147/81 93 Room Air 08/18/16 18:45 37.3 88 20 113/65 94 Room Air 08/18/16 17:45 37.6 97 20 153/81 95 Room Air 08/18/16 16:45 37.2 88 20 128/66 97 Room Air 08/18/16 16:15 37.3 83 22 112/59 92 Room Air 08/18/16 15:45 37.1 86 22 107/66 95 Room Air 08/18/16 15:30 37.7 91 22 135/75 91 Room Air 08/18/16 15:15 37.5 87 22 118/74 96 Room Air 08/18/16 15:00 36.7 93 16 140/68 95 Room Air 08/18/16 15:00 37.7 90 22 126/70 95 Room Air 08/18/16 14:40 93 16 140/68 95 Room Air 08/18/16 14:30 93 16 133/68 95 Room Air 08/18/16 14:23 96 16 123/67 95 Room Air 08/18/16 14:08 96 16 145/84 95 Room Air 08/18/16 13:25 89 22 171/95 95 08/18/16 13:16 89 22 171/95 95 08/18/16 13:15 99 23 95 08/18/16 13:11 174/102 08/18/16 13:06 140/80 08/18/16 13:01 137/73 08/18/16 13:00 93 12 96 08/18/16 12:51 93 20 117/69 92 Room Air 08/18/16 12:45 91 20 142/77 96 Room Air 08/18/16 12:13 93 Room Air 08/18/16 12:04 86 08/18/16 12:00 36.7 88 22 146/78 94 Room Air 08/18/16 12:00 93 Room Air (Fernando Avina, CODI) Physical Exam General Appearance: no apparent distress Eyes: normal inspection, sclerae normal ENT: hearing grossly normal, pharynx normal Neck: supple, no JVD, no carotid bruits Respiratory/Chest: chest non-tender, lungs clear, normal breath sounds, no respiratory distress, no accessory muscle use Cardiovascular: regular rate, rhythm, no JVD, no murmur Abdomen: normal bowel sounds, non tender, soft Extremities: normal range of motion, non-tender, no pedal edema Neurologic/Psychiatric: alert, normal mood/affect, oriented x 3 Skin: normal color, warm/dry, no rash (Fernando Avina, LABORATORY CLERK) Laboratory Results Last 24 Hours Test 08/18/16 11:15 08/18/16 16:38 08/18/16 23:36 08/19/16 05:55 White Blood Count 14.24 K/uL 11.21 K/uL Red Blood Count 4.19 M/uL 3.77 M/uL Hemoglobin 13.9 g/dL 11.6 g/dL Hematocrit 40.6 % 36.0 % Mean Corpuscular Volume 96.9 fL 95.5 fL Mean Corpuscular Hemoglobin 33.2 pg 30.8 pg Mean Corpuscular Hemoglobin Concent 34.2 g/dl 32.2 g/dl Platelet Count 307 K/uL 248 K/uL Mean Platelet Volume 10.5 fL 9.6 fL Neutrophils (%) (Auto) 71.6 % 62.4 % Lymphocytes (%) (Auto) 14.6 % 23.9 % Monocytes (%) (Auto) 9.5 % 11.6 % Eosinophils (%) (Auto) 4.0 % 1.6 % Basophils (%) (Auto) 0.2 % 0.2 % Neutrophils # (Auto) 10.19 K/uL 7.00 K/uL Lymphocytes # (Auto) 2.08 K/uL 2.68 K/uL Monocytes # (Auto) 1.35 K/uL 1.30 K/uL Eosinophils # (Auto) 0.57 K/uL 0.18 K/uL Basophils # (Auto) 0.03 K/uL 0.02 K/uL RDW Standard Deviation 48.4 fL 47.4 fL RDW Coefficient of Variation 13.6 % 13.5 % Immature Granulocyte % (Auto) 0.1 % 0.3 % Immature Granulocyte # (Auto) 0.02 K/uL 0.03 K/uL Sodium Level 141 mmol/L 141 mmol/L Potassium Level 4.2 mmol/L 3.5 mmol/L Chloride Level 104 mmol/L 106 mmol/L Carbon Dioxide Level 30 mmol/L 27 mmol/L Anion Gap 7.0 mmol/L 8.0 mmol/L Blood Urea Nitrogen 14 mg/dl 14 mg/dl Creatinine 0.87 mg/dl 0.77 mg/dl Est Creatinine Clear Calc Drug Dose 50.9 ml/min 59.4 ml/min Estimated GFR () 72.9 84.5 Estimated GFR (Non- 62.9 72.9 BUN/Creatinine Ratio 16.2 17.6 Random Glucose 124 mg/dl 115 mg/dl Calcium Level 9.2 mg/dl 8.2 mg/dl Total Bilirubin 0.6 mg/dl Direct Bilirubin < 0.1 mg/dl Aspartate Amino Transf (AST/SGOT) 23 U/L Alanine Aminotransferase (ALT/SGPT) 15 U/L Alkaline Phosphatase 97 U/L Total Creatine Kinase 127 U/L Creatine Kinase MB 5.3 ng/ml Creatine Kinase MB Ratio 4.2 Troponin I 0.660 ng/ml 0.409 ng/ml 0.300 ng/ml Total Protein 8.0 gm/dl Albumin 3.8 gm/dl Activated Partial Thromboplast Time 23.8 SECONDS 28.2 SECONDS Partial Thromboplastin Ratio 0.9 1.1 Triglycerides Level 126 mg/dl Cholesterol Level 168 mg/dl HDL Cholesterol 54 mg/dl LDL Cholesterol, Calculated 89 mg/dl VLDL Cholesterol, Calculated 25 mg/dl Cholesterol/HDL Ratio 3.1 (Fernando Avina CRNP) Assessment and Plan 80 y/o F who was admitted s/p Heart Alert earlier this AM. Originally with chest pain and intrascapular pain. 1. NSTEMI - no further chest pain - cath did not require intervention - appreciate Dr. Galeas input. 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 HTN - stable on BB, STORM 4. Seizures: last was in 1979, continue home meds 5. combined systolic/diastolic heart failure - compensated. - Pt follows strict no Na diet - cont Bumex, Toprol, lisinopril, ASA 6. Full Code 7. Disposition - home tomorrow if no arrhythmias Continued [facility] stay due to: other (need to monitor over night for arrythmias s/ p heart cath) Discharge planning: home (Bookhammer, Fernando ., LABORATORY CLERK) Attending Attestation: Chart reviewed in detail. I agree with the vivas components of CODI Avina's documentation. Chip Schmid MD (Chip Schmid MD)
[2016-08-19 15:42] VITALS: BP 119/66; PULSE 75; TEMP 37.1; O2SAT 95
--- NOTE | 2016-08-19 15:43 | CARDIOLOGY PROGRESS NOTE ---
DATE: 08/19/2016 TIME: 1447. SUBJECTIVE: She denies chest pain, shortness of breath, syncope, near syncope, abdominal pain, or edema. She states her edema has resolved since hospitalization. When asked about stressful situations, she states that she is very concerned about her at home and is concerned that he may pass away as he is 89 years old and wheelchair bound. She also wishes that her children would visit more often. She became very tearful when speaking of her and states that it has been very stressful recently. OBJECTIVE: VITAL SIGNS: Temperature 36.7 degrees, heart rate 73 beats per minute, respiration rate 20, blood pressure 132/74 mmHg, oxygen saturation 96% on room air. I's and O's negative 359 mL yesterday, weight is 96.5 kg. GENERAL: No acute distress. NECK: No JVD. CARDIAC EXAM: No ventricular heave, regular, normal S1, S2, no audible murmurs, rubs or gallops. LUNGS: Clear to auscultation bilaterally without wheezes, rales or rhonchi. ABDOMEN: Soft, nontender, nondistended. Normoactive bowel sounds. EXTREMITIES: 2+ right radial pulse distal to the cath site. No erythema or discharge noted. No lower extremity edema. No cyanosis. PSYCHIATRIC: Affect appears appropriate. MEDICATIONS: Include atorvastatin 40 mg daily, Bumex 1 mg p.o. daily, Plavix 75 mg daily, isosorbide mononitrate 60 mg daily, lisinopril 5 mg daily, metoprolol tartrate 50 mg p.o. b.i.d., prednisone 5 mg daily. LABORATORY DATA: White blood cell count is 11.2, hemoglobin 11.6, platelets 248. Sodium 141, potassium 3.5, BUN 14, creatinine 0.77. Peak troponin was the initial troponin at 0.66, has since trended downward; triglycerides 126, total cholesterol 160, LDL 89, HDL 54. Echocardiogram images personally reviewed. Echo 08/19/2016 mildly to moderately reduced LV systolic function. Estimated EF 40%. There were wall motion abnormalities noted including hypokinesis of the mid lateral, mid anterior, mid septal all segments. There was akinesis of the mid anterior septum. Distal wall segments and apex appear akinetic to dyskinetic. No apical thrombus seen. Type 1 diastolic dysfunction. Severe LVH. Sclerotic aortic valve with mild regurgitation. RVSP 32 mmHg. Cardiac catheterization was performed on 08/18/[address] Coppola. This reported diffuse LAD 40% in the proximal portion and mid LAD of 30%-40%. Mid circumflex 40%. Proximal OM2 40%. Early distal focal RCA stenosis of 60%-70%. Mild ostial PDA disease. Dominant RCA. Very tortuous. EF 40%. Akinetic anterior apex, apex, and inferoapex. Basal segments were hyperkinetic. ASSESSMENT AND PLAN: 1. Takotsubo cardiomyopathy: She has had a recent emotional distress and has a pattern on echo and reported LV gram consistent with Takotsubo cardiomyopathy. This was discussed with her. Recommend metoprolol succinate in place of metoprolol tartrate. Primary service plans on making these changes. Lisinopril was initiated today. Both of these medications can be slowly titrated over time. If this is the diagnosis, would expect recovery of her LV systolic function. A repeat echo could be done as an outpatient through Dr. Coppola in cardiology office. Low sodium diet recommended. She appears euvolemic. 2. Elevated troponins: Likely secondary to Takotsubo cardiomyopathy as noted above. 3. Coronary artery disease: Recommend medical therapy. She has been placed on antiplatelet therapy by Dr. Coppola. Continue beta-enma. Continue high intensity statin therapy. 4. Dyslipidemia: High intensity statin therapy. 5. Disposition: If no arrhythmia and otherwise feeling well tomorrow, can be discharged tomorrow on 08/20/2016 from a cardiac standpoint. Plan of care was discussed in detail with Fernando Avina of the primary hospitalist service. He planned on adjusting medications as noted above.
[2016-08-19 19:36] VITALS: BP 110/58; PULSE 77; TEMP 37.1; O2SAT 93
[2016-08-19] MEDS: PHENYTOIN SODIUM ER 100 MG CAP PO SCH (21:11)
[2016-08-19 23:53] VITALS: BP 130/79; PULSE 82; TEMP 37; O2SAT 94
[2016-08-20 03:23] VITALS: BP 122/75; PULSE 79; TEMP 36.9; O2SAT 95
[2016-08-20 06:54] LABS: BASO % 0.2 %; BASO ABS # 0.02 K/uL (0-0.2); COMPLETE YES; EOS % 7.6 %; HEMATOCRIT 32.1 % (37-47); IG% 0.2 %; LYMPH % 26.5 %; LYMPH ABS # 2.57 K/uL (1.2-3.4); MEAN CELL VOLUME 96.7 fL (80-100); MEAN CORPUSCULAR HEMOGLOBIN 32.8 pg (25-34); MEAN PLATELET VOLUME 9.8 fL (7.4-10.4); MONO % 9.1 %; NEUT % 56.4 %; PLATELET COUNT 230 K/uL (130-400); RED BLOOD COUNT 3.32 M/uL (4.2-5.4); WHITE BLOOD COUNT 9.71 K/uL (4.8-10.8)
[2016-08-20 07:30] LABS: BUN/CREATININE RATIO 20.3 (10-20); CALCIUM 8.1 mg/dl (8.5-10.1); CREATININE 0.77 mg/dl (0.60-1.20); POTASSIUM 3.6 mmol/L (3.5-5.1)
[2016-08-20] MEDS: BUMETANIDE 1 MG TAB PO SCH (07:33)
[2016-08-20] MEDS: LISINOPRIL 5 MG TAB PO SCH (07:35)
[2016-08-20] MEDS: PHENOBARBITAL 32.4 MG TAB PO SCH (07:37)
[2016-08-20 07:54] VITALS: BP 118/67; PULSE 73; TEMP 36.9; O2SAT 96
[2016-08-20] MEDS: ATORVASTATIN 40 MG TAB PO SCH (08:11)
[2016-08-20] MEDS: ISOSORBIDE MONONITRATE 60 MG TABCR PO SCH (08:11)
[2016-08-20] MEDS: CLOPIDOGREL BISULFATE 75 MG TAB PO SCH (08:11)
[2016-08-20] MEDS: ASPIRIN 81 MG ECTAB PO SCH (08:11)
[2016-08-20] MEDS ORDERED: METOPROLOL SUCC 50MG EXT REL TAB PO SCH (09:00)
[2016-08-20] MEDS ORDERED: LPT40 PO (09:23)
[2016-08-20] MEDS ORDERED: LSN5 PO (09:23)
[2016-08-20] MEDS ORDERED: ASPEC81 PO (09:23)
[2016-08-20] MEDS ORDERED: TPRSR50 PO (09:23)
[2016-08-20] MEDS ORDERED: PLV75 PO (09:23)
--- NOTE | 2016-08-20 09:29 | Discharge Instructions ---
Discharge Instructions Date of Service August 20, 2016. Admission Reason for Admission: Chest Pain, Elevated Triponin Discharge Discharge Diagnosis / Problem: nstemi - takotsubo cardiomyopathy Discharge Goals Goal(s): Improve function, Improve disease control, Learn about illness, Therapeutic intervention Activity Recommendations Activity Limitations: as noted below Lifting Limitations: gradually increase as tolerated Exercise/Sports Limitations: gradually increase as tolerated Shower/Bathe: no limitations . Instructions / Follow-Up Instructions / Follow-Up ACTIVITY RECOMMENDATIONS: Excess manipulation of the wrist should be avoided for the next 24-48 hours. * No lifting over 2 pounds (approximately a 1/2 gallon of milk) with the utilized arm for 24 hours. * No strenuous activity such as bowling or tennis for 3 days. * Keep the site of the procedure covered with a bandage for 24 hours. *You may shower the day after the procedure. Do not take a tub bath or submerge the puncture site in water for the next 3 days. *Do not operate any motorized equipment for 3 days. SPECIAL CARE INSTRUCTIONS: The site may be slightly bruised and sore following your procedure. Should any of the following occur, contact the Dr. who performed your procedure. 1. Redness/inflammation, swelling, chills, or fever, or colored drainage at procedure site within 3-7 days after your procedure. 2. Coldness, discoloration, ongoing numbness, severe pain, or swelling. Expect mild tingling of hand and tenderness at the puncture site for up to three days. If this persists beyond three days, or other symptoms develop, notify the Dr. who performed your procedure. BLEEDING: If the procedure site on your wrist begins to bleed, do not panic 1. Place 1 or 2 fingers firmly just slightly above the insertion site to stop the bleeding. You may be able to feel your pulse as you hold pressure. 2. Lift your finger after 5 minutes to see if the bleeding has stopped. 3. Once the bleeding has stopped, gently wipe the wrist area clean with a bandage. * If the bleeding from your wrist does not stop after 10 minutes, or if there is a large amount of bleeding or spurting, call 911 (do not drive yourself to the hospital). SKIN IRRITATION: * You may experience some redness and/or swelling in the area where radiation was administered. If any skin irritation occurs, please contact your family physician. FOLLOW UP VISIT: Keep any scheduled doctor appointments. Current Hospital Diet Patient's current hospital diet: AHA Diet (Heart Healthy) Discharge Diet Recommended Diet: AHA Diet (Heart Healthy), Low Sodium Diet (2gm Na) Pending Studies Studies pending at discharge: no Laboratory Results Hemoglobin A1c Test 08/19/16 05:55 Range/Units Estimated Average Glucose 128 mg/dl Hemoglobin A1c 6.1 H 4.5-5.6 % Lipid Panel Test 08/19/16 05:55 Range/Units Triglycerides Level 126 0-150 mg/dl Cholesterol Level 168 0-200 mg/dl HDL Cholesterol 54 mg/dl Cholesterol/HDL Ratio 3.1 LDL Cholesterol, Calculated 89 mg/dl Medical Emergencies . Who to Call and When: Medical Emergencies: If at any time you feel your situation is an emergency, please call 911 immediately. . Non-Emergent Contact Non-Emergency issues call your: Primary Care Provider . Past History Medical & Surgical History: (1) NSTEMI (non-ST elevated myocardial infarction) (2) Hypertension (3) Weakness . "Provider Documentation" section prepared by Fernando Avina. . VTE Core Measure Inpt VTE Proph given/why not?: Unfractionated heparin SQ
[2016-08-20 09:44] VITALS: BP 118/67; PULSE 73; TEMP 36.9; O2SAT 96
--- NOTE | 2016-08-20 09:51 | Discharge Summary ---
Discharge Summary Date of Service August 20, 2016. (Fernando Avina CRNP) Discharge Summary Admission Date: August 18, 2016 at 14:31 Discharge Date: August 20, 2016 Discharge Disposition: Home Principal Diagnosis: nstemi - takotsubo cardiomyopathy Problems/Secondary Diagnoses: coronary artery disease hypertension Immunizations: Have You Had Influenza Vaccine: Yes Influenza Vaccine Date: Feb 19, 2010 History of Tetanus Vaccine?: Yes Tetanus Immunization Date: Feb 19, 2004 History of Pneumococcal: Yes Pneumococcal Date: Feb 18, 2010 History of Hepatitis B Vaccine: No Procedures: Heart Catheterization . Moderate multivessel coronary artery disease - 40% diffuse proximal LAD - 40% mid circumflex, proximal OM2 - 60-70% distal RCA - Mild to moderate LV dysfunction with apical akinesis and hyperkinetic base consistent with takotsubo (stress-induced) cardiomyopathy. Consultations: Dr. Coppola - cardiology (Fernando Avina CRNP) Medication Reconciliation New Medications: Aspirin (Aspirin EC Low Dose) 81 Mg Ectab 81 MG PO QAM, #30 TAB 0 Refills Atorvastatin (Atorvastatin Calcium) 40 Mg Tab 40 MG PO HS, #30 TAB 0 Refills Clopidogrel Bisulfate (Clopidogrel) 75 Mg Tab 75 MG PO QAM, #30 TAB 0 Refills Lisinopril (Lisinopril) 5 Mg Tab 5 MG PO QAM, #30 TAB 0 Refills Metoprolol Succinate (Metoprolol Succinate ER) 50 Mg Tabcr 50 MG PO BID, #60 TAB 0 Refills Continued Medications: Acetaminophen Tab (Tylenol) 325 Mg Tab 650 MG PO, TAB Bumetanide (Bumex) 1 Mg Tab 1 MG PO DAILY, TAB Cholecalciferol (Vitamin D3) 1,000 Unit Tab 1 TAB PO DAILY Cyanocobalamin (Vitamin B-12) 1,000 Mcg Tab 1000 MCG PO DAILY Isosorbide Mononitrate Ext Rel (Imdur Ext Rel) 60 Mg Ertab 60 MG PO QAM Phenobarbital (Phenobarbital) 16.2 Mg Tab 2 TABS PO BID, #120 Phenytoin Sodium (Dilantin) 100 Mg Cap 200 MG PO QPM, CAP Prednisone (Prednisone) 5 Mg Tab 5 MG PO QAM, TAB Discontinued Medications: Aspirin (Aspirin) 325 Mg Tab 325 MG PO DAILY Metoprolol Tartrate (Lopressor) (Lopressor) 50 Mg Tab 50 MG PO BID Discharge Exam Review of Systems: Constitutional: No chills, No fatigue, No fever, No problem reported, No sweats, No weakness, No weight loss ENT: No dental problems, No hearing loss, No nasal symptoms, No problem reported, No sore throat, No tinnitus, No trouble swallowing, No unusual epistaxis Respiratory: No cough, No dyspnea at rest, No dyspnea on exertion, No hemoptysis, No problem reported, No shortness of breath, No sputum, No wheezing Cardiovascular: No PND, No chest pain, No claudication, No edema, No orthopnea, No palpitations, No problem reported Abdomen: No GI bleeding, No constipation, No diarrhea, No nausea, No pain, No problem reported, No vomiting Musculoskeletal: No calf pain, No joint pain, No muscle pain, No problem reported, No swelling Genitourinary - Male: No dysuria, No hematuria, No impotence, No lesions, No penile discharge, No problem reported, No urinary frequency, No urinary hesitancy, No urinary incontinence, No urinary retention, No urinary urgency Neurologic: No balance problems, No memory loss, No numbness/tingling, No paralysis, No problem reported, No vertigo, No weakness Physical Exam: General Appearance: WD/WN Eyes: normal inspection ENT: hearing grossly normal, pharynx normal Neck: supple, no JVD Respiratory/Chest: lungs clear, normal breath sounds, no respiratory distress Cardiovascular: regular rate, rhythm, no edema, no gallop, no JVD Abdomen / GI: normal bowel sounds, non tender, soft Extremities: normal inspection, no calf tenderness Neurologic/Psychiatric: alert, normal mood/affect, oriented x 3 Skin: normal color (Fernando Avina, DESKTOP ARCHITECT) Hospital Course 80 year old female presented to the emergency department with chest pain, intrascapular pain and shortness of breath. A heart alert was called. There were EKG changes and initial troponin was elevated. She underwent a heart catheterization with Dr. Coppola. There was moderate multivessel coronary artery disease, elevated intracardiac filling pressure and moderated LV dysfunction with apical akinesis and hyperkinetic base consistent with takotsubo cardiomyopathy. She was placed under the hospitalist service. She has had no chest pain since undergoing the heart catheterization. Her troponins have trended down. She is no longer short of breath. She was started on a high dose statin, Plavix, Toprol XL, lisinopril and her ASA was decreased from 325mg to 81mg. She had an ECHO. EF was around 40% and was consistent with takotsubo cardiomyopathy. She will need a follow up ECHO and will need to follow up with Dr. Coppola. She has a history of diastolic heart failure and now is a combined systolic/ diastolic. She had some IV bumex and now is back to her normal oral Bumex dose. Her weight has been stable. She has had not arrhythmias post cath and will be discharged home today in stable condition. Total Time Spent: Greater than 30 minutes This includes examination of the patient, discharge planning, medication reconciliation, and communication with other providers. (Fernando Avina CRNP) Attending Attestation: I agree with the vivas components of CODI Avina's discharge summary documentation. Chip Schmid MD (Chip Schmid MD) Discharge Instructions Please refer to the electronic Patient Visit Report (Discharge Instructions) for additional information. (Fernando Avina CRNP) Follow-Up Dr. Coppola 1 to 2 weeks PCP 1 week (Fernando Avina CRNP)
--- NOTE | 2016-08-20 10:29 | CARDIOLOGY PROGRESS NOTE ---
DATE: 08/20/2016 TIME: 09:57 a.m. SUBJECTIVE: Ms. Wood states that she feels quite well. She denies chest pain, shortness of breath, syncope, near syncope, abdominal pain, edema or bleeding. She notices that she is a little weak after lying in bed for 2 days, but is able to ambulate to the restroom and she was reminded to ambulate in the hallways with nursing staff prior to discharge. She would like to go home to be with her . OBJECTIVE: VITAL SIGNS: Temperature 36.9 degrees, heart rate 73 beats per minute, respiratory rate 18, blood pressure 118/67 mmHg and oxygen saturation is 96% on room air. I's and O's are relatively even yesterday. Weight is 96.5 kg. GENERAL: No acute distress. She is alert. NECK: No JVD. CARDIAC EXAM: No ventricular heave. Regular, normal S1 and S2. No audible murmurs, rubs or gallops. LUNGS: Clear to auscultation bilaterally without wheezes, rales or rhonchi. ABDOMEN: Soft, nontender, and nondistended. Normoactive bowel sounds. EXTREMITIES: No cyanosis or pitting edema. PSYCHIATRIC: Affect appears appropriate. MEDICATIONS: Include aspirin 81 mg daily, Plavix 75 mg daily, Lipitor 40 mg daily, Bumex 1 mg p.o. daily, isosorbide mononitrate 60 mg daily, lisinopril 5 mg daily, metoprolol succinate 100 mg daily, prednisone 5 mg daily, and phenytoin 200 mg daily. LABORATORY DATA: White blood cell count 9.71, hemoglobin 10.9, and platelets 230. Sodium 141, potassium 3.6, BUN 16, and creatinine 0.77. Telemetry personally reviewed. No arrhythmia. ASSESSMENT AND PLAN: 1. Stress-induced cardiomyopathy/takotsubo cardiomyopathy: She gives a history of emotional stress as noted prior. Continue metoprolol succinate 100 mg daily, which was initiated today. Continue lisinopril. This can be further titrated as an outpatient. She appears euvolemic. Would expect her LV systolic function to improve. 2. Elevated troponins: Likely secondary to stress-induced cardiomyopathy as noted. 3. Coronary artery disease: Recommend medical therapy for the coronary artery disease. She has been placed on antiplatelet therapy by Dr. Coppola, her primary shellfish shucker. Continue beta enma. Continue high intensity statin therapy. No angina. 4. Dyslipidemia: Continue high intensity statin therapy and follow transaminase levels as an outpatient. 5. Disposition: We discussed care of her cardiac catheterization site and restrictions. Recommend followup soon with Dr. Coppola in the cardiology outpatient office. Plan of care has been discussed with Fernando Avina, physician stores assistant for the primary service.
== END 2016-08-20 10:33 | disposition home or self-care (01) | DRG 281 ==
LOC: ENRESERVTM → ENRESERVDT → EDBD 11:50 → C.EDC 11:51 → C.2T 14:31
PROVIDERS: ADMIT Internal Medicine Interventional Cardiology; ATTEND Family Medicine
PROC: B215YZZ Fluoroscopy of Left Heart using Other Contrast (ICD-10-PCS; principal; 2016-08-18 13:21)
DX: I21.4 Non-ST elevation (NSTEMI) myocardial infarction (principal); I51.81 Takotsubo syndrome; I10 Essential (primary) hypertension; E11.9 Type 2 diabetes mellitus without complications; E78.5 Hyperlipidemia, unspecified; Z86.73 Personal history of transient ischemic attack (TIA), and cerebral infarction without residual deficits; G40.909 Epilepsy, unspecified, not intractable, without status epilepticus; Z79.82 Long term (current) use of aspirin; Z87.11 Personal history of peptic ulcer disease; Z82.49 Family history of ischemic heart disease and other diseases of the circulatory system

== ENCOUNTER 2016-09-30 17:52 | Observation (INO) | payer OTHER ==
[~2016-09-30] VITALS: Ht 149.9 cm; Wt 84.0 kg
[~2016-09-30 17:52] MED LIST changes: -ACET325T96 PO; +ASPEC81 PO; -ASPI325T45 PO; +LPT40 PO; +LSN5 PO; -METO50TA16 PO; +PLV75 PO; +TPRSR50 PO
--- NOTE | 2016-09-30 18:05 | EMERGENCY ROOM VISIT NOTE ---
History Report prepared by Yevgeniy: Claudia Nguyen Under the Supervision of: Dr. Dave Zhang M.D. First contact with patient: 17:55 Stated Complaint: SOB History of Present Illness The patient is a 81 year old female who presents to the Emergency Room with complaints of worsening shortness of breath beginning this morning. The patient states that she woke up this morning and then around 10:30am the shortness of breath began. The patient experienced chest pain, nausea and diaphoresis with the shortness of breath. She notes swelling to her lower extremities today. The left foot is worse than the right she states. The patient did take her Furosemide today. She does not wear oxygen at home. The patient denies a cough, fever, or chills. She arrived via ALS and received Aspirin en route to ED. Source of History: patient Onset: trhis morning Position: other (global) Quality: other (shortness of breath) Timing: worsening Associated Symptoms: No fevers, No chills, No cough Note: The patient is experiencing swelling to her lower extremities. Review of Systems All systems have been listed, reviewed, and are negative other than those previously mentioned. Please see Additional Medical History Sheet. Past Medical & Surgical Medical Problems: (1) Diabetes (2) Diverticulitis (3) Hypertension (4) Seizure (5) Stomach ulcer Family History Diabetes mellitus FH: heart disease Hypertension Seizures Social History Smoking Status: Never Smoker Alcohol Use: none Drug Use: none Marital Status: Housing Status: lives with significant other Occupation Status: unemployed Current/Historical Medications Scheduled Aspirin (Aspirin EC Low Dose), 81 MG PO QAM Atorvastatin (Atorvastatin Calcium), 40 MG PO HS Bumetanide (Bumex), 1 MG PO DAILY Cholecalciferol (Vitamin D3), 1 TAB PO DAILY Clopidogrel Bisulfate (Clopidogrel), 75 MG PO QAM Cyanocobalamin (Vitamin B-12), 1,000 MCG PO DAILY Isosorbide Mononitrate Ext Rel (Imdur Ext Rel), 60 MG PO QAM Lisinopril (Lisinopril), 5 MG PO QAM Phenobarbital (Phenobarbital), 2 TABS PO BID Phenytoin Sodium (Dilantin), 200 MG PO QPM Ranitidine Hcl (Zantac), 150 MG PO BID Allergies Coded Allergies: Azithromycin (Verified Allergy, Intermediate, UNKNOWN, 08/30/16) Iodine (Verified Allergy, Mild, 08/30/16) Sulfa Antibiotics (Verified Allergy, Mild, `, 08/30/16) Sulfamethoxazole (Verified Allergy, Mild, 08/30/16) Physical Exam Vital Signs Date Time Temp Pulse Resp B/P (MAP) Pulse Ox O2 Delivery O2 Flow Rate FiO2 09/30/16 20:09 74 18 130/61 96 Room Air 09/30/16 19:00 79 16 129/67 95 Room Air 09/30/16 18:19 90 09/30/16 18:16 95 Room Air 09/30/16 17:58 Room Air 98 09/30/16 17:58 36.6 90 16 179/94 95 Room Air Physical Exam GENERAL: Patient awake, alert, oriented x 3. Patient follows commands. Patient does not appear toxic. Patient is adequately hydrated and well- nourished. SKIN: No erythema, pallor, cyanosis or rash HEENT: Normal head, pupils equal, reactive to light and accommodation. Oral cavity and posterior pharynx appear normal. Neck: Without adenopathy, no neck vein distention. LUNGS: Clear to auscultation. No wheezes, no rales, no rhonchi. HEART: No murmurs. No gallops. No rubs ABDOMEN: No masses, no rebound, no hepatomegaly or splenomegaly. EXTREMITIES: No signs of trauma. 3+ peripheral edema. No calf or thigh tenderness. NEUROLOGIC: Cranial nerves II-XII within normal limits. No gross motor sensory function deficits. Medical Decision & Procedures ER Provider Diagnostic Interpretation: X ray results are stated below per my interpretation and the radiologist's interpretation. CHEST ONE VIEW PORTABLE CLINICAL HISTORY: sob COMPARISON STUDY: 08/18/2016 FINDINGS: The cardiac and mediastinal contours are normal. There is no evidence of focal pulmonary consolidation. There is no evidence of failure. No pleural effusions are visualized.[ Postsurgical changes involve the left shoulder IMPRESSION: No active disease in the chest. Electronically signed by: Ziyad Antonio M.D. 09/30/2016 6:39 PM Dictated Date/Time: 09/30/2016 6:39 PM Laboratory Results 09/30/16 17:20 Red Blood Count 4.21, Mean Corpuscular Volume 94.8, Mean Corpuscular Hemoglobin 32.3, Mean Corpuscular Hemoglobin Concent 34.1, Mean Platelet Volume 9.6, Neutrophils (%) (Auto) 48.7, Lymphocytes (%) (Auto) 32.3, Monocytes (%) (Auto) 7.3, Eosinophils (%) (Auto) 11.0, Basophils (%) (Auto) 0.6, Neutrophils # (Auto ) 3.49, Lymphocytes # (Auto) 2.31, Monocytes # (Auto) 0.52, Eosinophils # (Auto ) 0.79, Basophils # (Auto) 0.04 09/30/16 17:20 Test 09/30/16 17:20 09/30/16 20:34 White Blood Count 7.16 K/uL (4.8-10.8) Red Blood Count 4.21 M/uL (4.2-5.4) Hemoglobin 13.6 g/dL (12.0-16.0) Hematocrit 39.9 % (37-47) Mean Corpuscular Volume 94.8 fL (80-100) Mean Corpuscular Hemoglobin 32.3 pg (25-34) Mean Corpuscular Hemoglobin Concent 34.1 g/dl (32-36) Platelet Count 341 K/uL (130-400) Mean Platelet Volume 9.6 fL (7.4-10.4) Neutrophils (%) (Auto) 48.7 % Lymphocytes (%) (Auto) 32.3 % Monocytes (%) (Auto) 7.3 % Eosinophils (%) (Auto) 11.0 % Basophils (%) (Auto) 0.6 % Neutrophils # (Auto) 3.49 K/uL (1.4-6.5) Lymphocytes # (Auto) 2.31 K/uL (1.2-3.4) Monocytes # (Auto) 0.52 K/uL (0.11-0.59) Eosinophils # (Auto) 0.79 K/uL (0-0.5) Basophils # (Auto) 0.04 K/uL (0-0.2) RDW Standard Deviation 46.9 fL (36.4-46.3) RDW Coefficient of Variation 13.4 % (11.5-14.5) Immature Granulocyte % (Auto) 0.1 % Immature Granulocyte # (Auto) 0.01 K/uL (0.00-0.02) Anion Gap 10.0 mmol/L (3-11) Est Creatinine Clear Calc Drug Dose 48.5 ml/min Estimated GFR () 71.4 Estimated GFR (Non- 61.6 BUN/Creatinine Ratio 15.6 (10-20) Calcium Level 9.2 mg/dl (8.5-10.1) Total Bilirubin 0.3 mg/dl (0.2-1) Aspartate Amino Transf (AST/SGOT) 26 U/L (15-37) Alanine Aminotransferase (ALT/SGPT) 22 U/L (12-78) Alkaline Phosphatase 114 U/L (45-117) Total Protein 8.3 gm/dl (6.4-8.2) Albumin 4.0 gm/dl (3.4-5.0) Globulin 4.3 gm/dl (2.5-4.0) Albumin/Globulin Ratio 0.9 (0.9-2) Laboratory results as stated above per my review. ECG Indication: SOB/dyspnea Rate (beats per minute): 95 Rhythm: normal sinus Findings: ST depression (Lateral), other (left anterior vesticular block) Comparison ECG Date: ST depression less than 08/18/16 ED Course 1755: Past medical records reviewed. The patient was evaluated in room C7. A complete history and physical examination was performed. 2009: I reevaluated the patient. She is till experiencing chest pain but all other symptoms have resolved. 2041: Discussed the patient's case with Dr. [place] [facility] [place] The patient will be evaluated for further management. 2044: Upon reevaluation, the patient is hemodynamically stable.I discussed today 's findings with her. She verbalized agreement of the treatment plan. I spoke with Dr. Fuller of the [facility] [place] to evaluate the patient for further management. Medical Decision Nurses notes reviewed. Medical history sheet reviewed. Differential diagnosis includes but is not limited to: CHF, pneumonia, bronchitis, COPD, anxiety. The patient is here with chest pain associated with shortness of breath, diaphoresis and nausea. The patient a has prior history of myocardial infarction. The pain today was not as severe as her AR. The patient did receive aspirin prior to arrival. Multiple labs, EKG and imaging were obtained. Please see above. EKG appears to be similar to what she's had in the past. Troponin is not elevated. In light of her current history and past history I believe the patient will require further evaluation in the hospital. I discussed care with the hospitalist. Medication Reconciliation: I attest that I have personally reviewed the patient' s current medication list. Blood pressure Screening: Patient was found to have normal blood pressure on screening and does not require follow up. Consults Time Called: 2016 Consulting Physician: Dr. Jonny HOLLEY Returned Call: [phone] Discussed the patient's case with Dr. Jonny HOLLEY. The patient will be evaluated for further management. Impression Primary Impression: Acute coronary syndrome Scribe Attestation The scribe's documentation has been prepared under my direction and personally reviewed by me in its entirety. I confirm that the note above accurately reflects all work, treatment, procedures, and medical decision making performed by me. Departure Information Dispostion Being Evaluated By Hospitalist Referrals Jerad Wolfe M.D. (PCP)
[2016-09-30 18:19] LABS: BASO % 0.6 %; BASO ABS # 0.04 K/uL (0-0.2); COMPLETE YES; HEMATOCRIT 39.9 % (37-47); IG% 0.1 %; LYMPH % 32.3 %; LYMPH ABS # 2.31 K/uL (1.2-3.4); MEAN CELL VOLUME 94.8 fL (80-100); MEAN CORPUSCULAR HEMOGLOBIN 32.3 pg (25-34); MEAN CORPUSCULAR HGB CONC 34.1 g/dl (32-36); MEAN PLATELET VOLUME 9.6 fL (7.4-10.4); MONO % 7.3 %; NEUT % 48.7 %; PLATELET COUNT 341 K/uL (130-400); RED BLOOD COUNT 4.21 M/uL (4.2-5.4); WHITE BLOOD COUNT 7.16 K/uL (4.8-10.8)
[2016-09-30 18:26] LABS: BLOOD UREA NITROGEN 14 mg/dl (7-18); CREATININE 0.88 mg/dl (0.60-1.20); GLUCOSE 166 mg/dl (70-99)
[2016-09-30 18:27] LABS: ALT/SGPT 22 U/L (12-78); BUN/CREATININE RATIO 15.6 (10-20); CALCIUM 9.2 mg/dl (8.5-10.1); CARBON DIOXIDE 27 mmol/L (21-32); CHLORIDE 97 mmol/L (98-107); POTASSIUM 3.7 mmol/L (3.5-5.1); SODIUM 134 mmol/L (136-145)
[2016-09-30 18:31] LABS: ALB/GLOB RATIO 0.9 (0.9-2); ALKALINE PHOSPHATASE 114 U/L (45-117); AST/SGOT 26 U/L (15-37)
[2016-09-30] MEDS ORDERED: RANI150T3 PO (18:34)
--- NOTE | 2016-09-30 18:40 | DIAGNOSTIC IMAGING REPORT ---
CHEST ONE VIEW PORTABLE CLINICAL HISTORY: sob COMPARISON STUDY: 08/18/2016 FINDINGS: The cardiac and mediastinal contours are normal. There is no evidence of focal pulmonary consolidation. There is no evidence of failure. No pleural effusions are visualized.[ Postsurgical changes involve the left shoulder IMPRESSION: No active disease in the chest. Electronically signed by: Ziyad Antonio M.D. 09/30/2016 6:39 PM Dictated Date/Time: 09/30/2016 6:39 PM
[2016-09-30] MEDS ORDERED: ACETAMINOPHEN 325 MG TAB PO PRN (21:45)
[2016-09-30] MEDS ORDERED: ALUMINUM/MAGNESIUM/SIMETH (MAALOX MAX) 30 ML UDC PO PRN (21:45)
[2016-09-30] MEDS ORDERED: MAGNESIUM HYDROXIDE SUSP 30 ML UDC PO PRN (21:45)
[2016-09-30] MEDS ORDERED: NITROGLYCERIN 0.4 MG SL PER TAB CHARGE SL PRN (21:45)
[2016-09-30] MEDS ORDERED: MoRPHine SULFATE 2 MG/ML CARP IV PRN (21:45)
[2016-09-30] MEDS ORDERED: ONDANSETRON INJ 2 MG/ML 2 ML VIAL IV PRN (21:45)
[2016-09-30] MEDS ORDERED: POLYETHYLENE (MIRALAX) 17 GM PACK PO PRN (21:45)
--- NOTE | 2016-09-30 22:09 | History and Physical ---
History & Physical Date & Time of Service: Sep 30, 2016 at 22:05 Chief Complaint: SOB Primary Care Physician: Jerad Wolfe M.D. 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 Pt states she developed central CP with tachycardia and an elevated BP earlier in the day. She was slightly SOB and became dizzy when she stood up. She therefore alerted EMS and presented to the hospital for evaluation. She has occasional sharp pains in her chest which she states is not unusual for her , however, her symptoms from earlier have resolved. Initial EKG is unchanged, initial trop is negative. 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 She states "this was prescribed for fibromyalgia but then they found out it was actually arthritis". 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 Smoking Status: Never Smoker Drug Use: none Marital Status: Housing status: lives with family Occupational Status: unemployed Immunizations History of Influenza Vaccine: Yes Influenza Vaccine Date: Feb 19, 2010 History of Tetanus Vaccine?: Yes Tetanus Immunization Date: Feb 19, 2004 History of Pneumococcal: Yes Pneumococcal Date: Feb 18, 2010 History of Hepatitis B Vaccine: No Multi-Drug Resistant Organisms History of MDRO: No Allergies Coded Allergies: Azithromycin (Verified Allergy, Intermediate, UNKNOWN, 08/30/16) Iodine (Verified Allergy, Mild, 08/30/16) Sulfa Antibiotics (Verified Allergy, Mild, `, 08/30/16) Sulfamethoxazole (Verified Allergy, Mild, 08/30/16) Home Medications Scheduled Aspirin (Aspirin EC Low Dose), 81 MG PO QAM Atorvastatin (Atorvastatin Calcium), 40 MG PO HS Bumetanide (Bumex), 1 MG PO DAILY Cholecalciferol (Vitamin D3), 1 TAB PO DAILY Clopidogrel Bisulfate (Clopidogrel), 75 MG PO QAM Cyanocobalamin (Vitamin B-12), 1,000 MCG PO DAILY Isosorbide Mononitrate Ext Rel (Imdur Ext Rel), 60 MG PO QAM Lisinopril (Lisinopril), 5 MG PO QAM Phenobarbital (Phenobarbital), 2 TABS PO BID Phenytoin Sodium (Dilantin), 200 MG PO QPM Ranitidine Hcl (Zantac), 150 MG PO BID Review of Systems Constitutional: No fever, No chills, No sweats Eyes: No worsening of vision ENT: No hearing loss, No nasal symptoms Respiratory: + shortness of breath, No cough, No sputum, No wheezing Cardiovascular: + chest pain, + edema, No orthopnea, No PND Abdomen: No pain, No nausea, No vomiting Musculoskeletal: + joint pain (chronic arthritic) Genitourinary - Female: No dysuria, No urinary frequency, No urinary urgency Neurologic: + vertigo (light headedness - resolved), No memory loss, No paralysis, No weakness Psychiatric: No depression symptoms Endocrine: No fatigue Hematologic / Lymphatic: No abnormal bleeding/bruising Integumentary: No rash Physical Exam Vital Signs Date Time Temp Pulse Resp B/P (MAP) Pulse Ox O2 Delivery O2 Flow Rate FiO2 09/30/16 21:50 82 20 118/97 98 Room Air 09/30/16 21:16 78 18 194/91 95 Room Air 09/30/16 20:09 74 18 130/61 96 Room Air 09/30/16 19:00 79 16 129/67 95 Room Air 09/30/16 18:19 90 09/30/16 18:16 95 Room Air 09/30/16 17:58 Room Air 98 09/30/16 17:58 36.6 90 16 179/94 95 Room Air General Appearance: WD/WN, no apparent distress, + pertinent finding (PLeasant , overweight, elderly F - no distress) Head: normocephalic Eyes: normal inspection, PERRL, EOMI ENT: normal ENT inspection, pharynx normal Neck: supple, no JVD Respiratory/Chest: chest non-tender, lungs clear, normal breath sounds, no respiratory distress, no accessory muscle use Cardiovascular: regular rate, rhythm, no edema, no gallop, no JVD, no murmur, normal peripheral pulses Abdomen/GI: normal bowel sounds, non tender, soft Back: normal inspection, no CVA tenderness, no muscle spasm, normal range of motion Extremities/Musculoskelatal: normal inspection, no calf tenderness, normal capillary refill, no pedal edema, normal range of motion 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, no motor/sensory deficits, alert, normal mood/affect, normal reflexes, oriented x 3 Skin: normal color, warm/dry, no rash Diagnostics Laboratory Results Results Past 24 Hours Test 09/30/16 17:20 09/30/16 21:07 Range/Units White Blood Count 7.16 4.8-10.8 K/uL Red Blood Count 4.21 4.2-5.4 M/uL Hemoglobin 13.6 12.0-16.0 g/dL Hematocrit 39.9 37-47 % Mean Corpuscular Volume 94.8 80-100 fL Mean Corpuscular Hemoglobin 32.3 25-34 pg Mean Corpuscular Hemoglobin Concent 34.1 32-36 g/dl Platelet Count 341 130-400 K/uL Mean Platelet Volume 9.6 7.4-10.4 fL Neutrophils (%) (Auto) 48.7 % Lymphocytes (%) (Auto) 32.3 % Monocytes (%) (Auto) 7.3 % Eosinophils (%) (Auto) 11.0 % Basophils (%) (Auto) 0.6 % Neutrophils # (Auto) 3.49 1.4-6.5 K/uL Lymphocytes # (Auto) 2.31 1.2-3.4 K/uL Monocytes # (Auto) 0.52 0.11-0.59 K/uL Eosinophils # (Auto) 0.79 0-0.5 K/uL Basophils # (Auto) 0.04 0-0.2 K/uL RDW Standard Deviation 46.9 36.4-46.3 fL RDW Coefficient of Variation 13.4 11.5-14.5 % Immature Granulocyte % (Auto) 0.1 % Immature Granulocyte # (Auto) 0.01 0.00-0.02 K/uL Sodium Level 134 136-145 mmol/L Potassium Level 3.7 3.5-5.1 mmol/L Chloride Level 97 98-107 mmol/L Carbon Dioxide Level 27 21-32 mmol/L Anion Gap 10.0 3-11 mmol/L Blood Urea Nitrogen 14 7-18 mg/dl Creatinine 0.88 0.60-1.20 mg/dl Est Creatinine Clear Calc Drug Dose 48.5 ml/min Estimated GFR () 71.4 Estimated GFR (Non- 61.6 BUN/Creatinine Ratio 15.6 10-20 Random Glucose 166 70-99 mg/dl Calcium Level 9.2 8.5-10.1 mg/dl Total Bilirubin 0.3 0.2-1 mg/dl Aspartate Amino Transf (AST/SGOT) 26 15-37 U/L Alanine Aminotransferase (ALT/SGPT) 22 12-78 U/L Alkaline Phosphatase 114 45-117 U/L Troponin I < 0.015 < 0.015 0-0.045 ng/ml Total Protein 8.3 6.4-8.2 gm/dl Albumin 4.0 3.4-5.0 gm/dl Globulin 4.3 2.5-4.0 gm/dl Albumin/Globulin Ratio 0.9 0.9-2 EKG Sinus - LAFB - no significant change from previous Impression Assessment and Plan 81 y/o F Hx CAD, HTN, seizures, 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 Pt states she developed central CP with tachycardia and an elevated BP earlier in the day. She was slightly SOB and became dizzy when she stood up. She therefore alerted EMS and presented to the hospital for evaluation. She has occasional sharp pains in her chest which she states is not unusual for her , however, her symptoms from earlier have resolved. 1) CP - documented CAD in addition to Takatsubo cardiomyopathy which lead to a STEMI 08/09 - She will remian on Imdur. It was noted that upon D/C in July she had been prescribed a B enma - it is unclear if she is not compliant or did not tolerate the medication. We can phone her client account specialist prior to DC. Troponin will be trended - cont ASA, Plavix and Lipitor. 2) Seizure disorder - cont Dilantin, Pheno 3) HTN - Cont Lisinopril, Imdur Full code - Heparin prophylaxis Total time for this admit including review of labs, meds, EKG - discussion with pt and ER attending 35 min Level of Care Telemetry Resuscitation Status FULL RESUSCITATION VTE Prophylaxis VTE Risk Assessment Done? Y/N: Yes Risk Level: Moderate Given or contraindicated: Unfractionated heparin SQ
[2016-09-30 22:20] VITALS: BP 182/95; PULSE 77; TEMP 36.6; O2SAT 97
[2016-09-30 22:30] VITALS: BP 182/95; PULSE 77; TEMP 36.6; O2SAT 97; Ht 149.9 cm; Wt 84.0 kg
[2016-09-30] MEDS ORDERED: PHENYTOIN SODIUM ER 100 MG CAP PO ONE (22:45)
[2016-09-30 23:11] VITALS: BP 144/75; PULSE 75; TEMP 36.4; O2SAT 96
[2016-09-30 23:21] LABS: PROTHROMBIN TIME (PATIENT) 10.7 SECONDS (9.0-12.0)
[2016-09-30] MEDS: PHENOBARBITAL 32.4 MG TAB PO SCH (23:21)
[2016-09-30] MEDS ORDERED: IV FLUIDS COMPLETED PRN (23:30)
[2016-10-01] VITALS (7 sets, daily range): BP systolic 108–161; BP diastolic 65–77; PULSE 64–101; TEMP 36.4–36.8; O2SAT 96–98
[2016-10-01] MEDS: HEPARIN SOD 5000 UNIT/0.5 ML CARP SQ SCH ×3 (06:15→22:25)
[2016-10-01] MEDS: ISOSORBIDE MONONITRATE 60 MG TABCR PO SCH (08:01)
[2016-10-01] MEDS: CYANOCOBALAMIN 500 MCG TAB (VIT B-12) PO SCH (08:01)
[2016-10-01] MEDS: PHENOBARBITAL 32.4 MG TAB PO SCH ×2 (08:01→21:01)
[2016-10-01] MEDS: RANITIDINE HCL 150 MG TAB PO SCH ×2 (08:01→20:55)
[2016-10-01] MEDS: CHOLECALCIFEROL 1000 INTER.UNIT TAB PO SCH (08:02)
[2016-10-01] MEDS: ASPIRIN 81 MG ECTAB PO SCH (08:02)
[2016-10-01] MEDS: BUMETANIDE 1 MG TAB PO SCH (08:02)
[2016-10-01] MEDS: CLOPIDOGREL BISULFATE 75 MG TAB PO SCH (08:02)
[2016-10-01] MEDS ORDERED: LISINOPRIL 5 MG TAB PO SCH (09:00)
[2016-10-01] MEDS: METOPROLOL TARTRATE 25 MG TAB PO SCH ×2 (11:59→20:58)
[2016-10-01] MEDS ORDERED: PERFLUTREN LIPID MICROSPHERE (DEFINITY) IV ONE (14:08)
--- NOTE | 2016-10-01 15:53 | DIAGNOSTIC IMAGING REPORT ---
ULTRASOUND LEFT LOWER EXTREMITY VENOUS CLINICAL HISTORY: Left leg pain and swelling. COMPARISON STUDY: Left lower extremity venous ultrasound dated 08/31/2016. TECHNIQUE: Real-time, grayscale, and color Doppler sonography of the deep veins of the left lower extremity was performed from the inguinal crease to the calf. Compression and augmentation were utilized. FINDINGS: There is no sonographic evidence of deep venous thrombosis identified in the left lower extremity. The common femoral, superficial femoral, and popliteal veins are patent and normally compressible. The greater saphenous vein and the profunda femoris vein at the junction with the common femoral vein are clear. The visualized calf veins are patent. IMPRESSION: There is no sonographic evidence of deep venous thrombosis identified in the left lower extremity. Electronically signed by: Raúl Canela M.D. 10/01/2016 3:51 PM Dictated Date/Time: 10/01/2016 3:51 PM
--- NOTE | 2016-10-01 17:16 | ECHOCARDIOGRAM REPORT ---
*NOTICE TO RECEIVING CONSTITUTION PARTY AGENCY This information is strictly Confidential and protected under [place] law. [place] law prohibits you from making any further disclosure of this information unless further disclosure is expressly permitted by the written consent of the person to whom it pertains or is authorized by law. A general authorization for the release of medical or other information is not sufficient for this purpose. Hospital accepts no responsibility if the information is made available to any other person, INCLUDING THE PATIENT. Interpretation Summary * Name: SCOTT ARIAS Study Date: 10/01/2016 01:41 PM BP: 130/72 mmHg * Patient Location: C.2T\S\S239\S\1 HR: 71 * : 1935 (M/d/yyyy) Gender: Female * Age: 81 yrs Ethnicity: [place] * Ordering Physician: Chip Schmid * Referring Physician: Self, Referred * Performed By: Ko Taylor RDCS * Account#[id number] * Reason For Study: CHF, Hx Takotsubo's * -- Conclusions -- * The left ventricle is normal in size. * There is moderate concentric left ventricular hypertrophy. * Left ventricular systolic function is normal. * Ejection Fraction = 55-60%. * The left ventricular wall motion is normal. * The right ventricle is normal in size and function. * The right ventricular systolic function is normal as assessed by tricuspid annular plane systolic excursion (TAPSE) (normal >1.5 cm). * Aortic valve sclerosis moderate, without significant aortic valvular stenosis. * Grade I diastolic dysfunction, (abnormal relaxation pattern). * Compared to the echo of 08/19/16 the LV function has returned to normal and the wall motion abnormlaities have resolved. Procedure Details * A two-dimensional transthoracic echocardiogram with M-mode and Doppler was performed. * A two-dimensional transthoracic echocardiogram, with color flow Doppler was performed. * The study was technically difficult, but visualization was adequate with the administration of Definity ultrasound contrast. * A contrast injection of Definity was performed to improve assessment of LV function. * Contrast was injected into an intravenous site in the left arm. * One vial of Definity ultrasound contrast was diluted in normal saline to a total volume of 10 ml. A total of '4' ml of solution was administered during imaging. * Lot # [id number] of Definity utilized for procedure. * Expiration date 1AUG18. * The attending nurse who injected the contrast agent was GISEL Brian. Left Ventricle * The left ventricle is normal in size. * There is moderate concentric left ventricular hypertrophy. * Left ventricular systolic function is normal. * Ejection Fraction = 55-60%. * The left ventricular wall motion is normal. Right Ventricle * The right ventricle is normal in size and function. * The right ventricular systolic function is normal as assessed by tricuspid annular plane systolic excursion (TAPSE) (normal >1.5 cm). Atria * The left atrium is mildly dilated. * Right atrial size is normal. Mitral Valve * There is mild mitral annular calcification. * There is no mitral regurgitation noted. Tricuspid Valve * The tricuspid valve is not well visualized, but is grossly normal. * There is trace tricuspid regurgitation. Aortic Valve * Aortic valve sclerosis moderate, without significant aortic valvular stenosis. * Mild aortic regurgitation. Pulmonic Valve * The pulmonic valve is not well visualized. Great Vessels * The aortic root is normal size. Pericardium/Pleural * There is no pericardial effusion. Left Ventricular Diastolic Function * Grade I diastolic dysfunction, (abnormal relaxation pattern). MMode 2D Measurements and Calculations IVSd 1.4 cm IVSs 2.0 cm LVIDd 4.4 cm LVIDs 2.6 cm LVPWd 1.3 cm LVPWs 1.8 cm IVS/LVPW 1.1 FS 40.3 % EDV(Teich) 88.2 ml ESV(Teich) 25.4 ml EF(Teich) 71.2 % EDV(cubed) 85.8 ml ESV(cubed) 18.2 ml EF(cubed) 78.7 % % IVS thick 44.1 % % LVPW thick 33.4 % LV mass(C)d 230.2 grams LV mass(C)s 203.8 grams SV(Teich) 62.8 ml SV(cubed) 67.6 ml EPSS 0.81 cm Ao root diam 3.2 cm Ao root area 8.0 cm\S\2 ACS 1.1 cm LA dimension 3.9 cm LA/Ao 1.2 LVAd ap4 24.8 cm\S\2 LVLd ap4 7.0 cm EDV(MOD-sp4) 71.8 ml LVAs ap4 15.0 cm\S\2 LVLs ap4 5.9 cm ESV(MOD-sp4) 32.2 ml EF(MOD-sp4) 55.2 % LVAd ap2 19.2 cm\S\2 LVLd ap2 6.9 cm EDV(MOD-sp2) 42.3 ml LVAs ap2 11.4 cm\S\2 LVLs ap2 5.8 cm ESV(MOD-sp2) 18.0 ml EF(MOD-sp2) 57.4 % SV(MOD-sp4) 39.6 ml SV(MOD-sp2) 24.3 ml Doppler Measurements and Calculations MV E max susan 64.0 cm/sec MV A max susan 106.7 cm/sec MV E/A 0.60 MV dec time 0.33 sec Ao V2 max 138.7 cm/sec Ao max PG 7.7 mmHg Ao max PG (full) 3.4 mmHg LV V1 max PG 4.3 mmHg LV V1 max 103.5 cm/sec
[2016-10-01] MEDS ORDERED: LPR25 PO (17:56)
--- NOTE | 2016-10-01 18:39 | Progress Note ---
Subjective Date of Service: Oct 01, 2016. Subjective Pt evaluation today including: conversation w/ patient, physical exam, chart review, lab review, review of studies (echo), review of inpatient medication list Pain: no recurrent chest pain since admission PO Intake: normal Voiding: no voiding problems During my visit today her main complaint is that of dizziness. She has had this for months, probably preceding her hospital stay in July. She denies true vertigo. Denies presyncope or syncope. She states "my head just feels stuffy." She had an episode of dizziness this am while performing grooming - standing at the sink in the bathroom. She sits down and the dizziness resolves. orthostatic BPs this afternoon were NORMAL. Denies associated tinnitus or hearing changes. She denies balance troubles. No falls. She also c/o palpitations. Telemetry today showed tachycardia (when she was in the bathroom) as well as PVCs. Metoprolol was restarted this am, and the tachycardia resolved. Problem List Medical Problems: (1) Acute coronary syndrome Status: Acute (2) Leg pain, left Status: Acute (3) NSTEMI (non-ST elevated myocardial infarction) Status: Acute Review of Systems Constitutional: No fever Respiratory: No cough, No sputum, No wheezing, No shortness of breath, No dyspnea on exertion Cardiac: + edema (left leg, but improved now), + palpitations, No chest pain, No orthopnea, No PND Abdomen: No pain Neurologic: No numbness/tingling, No vertigo, No balance problems Objective Vital Signs Date Time Temp Pulse Resp B/P (MAP) Pulse Ox O2 Delivery O2 Flow Rate FiO2 10/01/16 16:00 36.4 75 20 161/75 (103) 98 Room Air 10/01/16 12:12 36.8 101 20 130/72 (91) 97 Room Air 10/01/16 07:04 36.5 65 20 126/70 (88) 97 Room Air 10/01/16 04:05 Room Air 10/01/16 03:45 36.4 64 16 118/71 (87) 96 Room Air 09/30/16 23:15 Room Air 09/30/16 23:11 36.4 75 18 144/75 (98) 96 Room Air 09/30/16 22:30 36.6 77 18 182/95 97 Room Air 98 09/30/16 22:20 36.6 77 18 182/95 (124) 97 Room Air 09/30/16 21:50 82 20 118/97 98 Room Air 09/30/16 21:16 78 18 194/91 95 Room Air 09/30/16 20:09 74 18 130/61 96 Room Air 09/30/16 19:00 79 16 129/67 95 Room Air 09/30/16 18:19 90 09/30/16 18:16 95 Room Air Physical Exam General Appearance: no apparent distress ENT: pharynx normal Neck: no JVD Respiratory/Chest: lungs clear, no respiratory distress, no accessory muscle use Cardiovascular: regular rate, rhythm, no gallop, no murmur Abdomen: normal bowel sounds, non tender, soft, no organomegaly Extremities: no pedal edema Neurologic/Psychiatric: alert, oriented x 3, + pertinent finding (finger/nose/ finger maneuver without dysmetria; tandem walking normal and w/o ataxia ) Laboratory Results Last 24 Hours Test 09/30/16 21:07 09/30/16 22:41 10/01/16 05:20 10/01/16 17:55 Troponin I < 0.015 ng/ml < 0.015 ng/ml < 0.015 ng/ml Prothrombin Time 10.7 SECONDS Prothromb Time International Ratio 1.0 Assessment and Plan 81yo female: 1. chest pain - resolved. Troponins negative x 4. Repeat echo today with IMPROVED EF (was 40% in July, now 55-60%; NO WALL MOTION ABNORMALITIES). 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 It is not out of the realm of possibility that the chest pain is in fact from her CAD despite the negative EKG and cardiac enzymes. She was taken off her beta enma recently - she thinks due to bradycardia. I restarted the beta enma at 25mg BID (previously was taking 50mg BID). Since restarting this AM she has had no bradycardia and her tachycardia has resolved. Consider cardiology consult in AM for any other recommendations. Continue aspirin, statin, etc. 2. tachycardia - this occurred while performing grooming/ADLs this am. She also reports palpitations. Tele has shown some PVCs. Metoprolol has been resumed albeit at a lower dose. No dysrhythmia has been seen, however. 3. dizziness - I am uncertain as to the etiology. This is a chronic issue. It is not vertiginous in origin. Her orthostatics are negative. Although her Na level was 134 she is not clinically dehydrated. It resolves with rest. Her cerebellar exam is normal. 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 need for repeat MRI? will check with neuro. also check dilantin & phenobarbital levels. High levels could certainly contribute to feeling dizzy. Check sed rate, TSH, and b12 to be complete. 4. HTN - since we are resuming metoprolol will stop her STORM. 5. CKD stage 2 - creatinine stable today. 6. h/o Takatsubo's cardiomyopathy - resolved; echo today with preserved EF and normal wall motion. 7. h/o PMR vs fibromyalgia - no symptoms of either at this time. Reasonable to recheck sed rate, however. 8. DVT proph - heparin TID. hopefully home in AM Discharge planning: home
[2016-10-01 19:24] LABS: PHENOBARBITAL 17.7 mcg/mL (15.0-40.0)
[2016-10-01] MEDS ORDERED: PHENYTOIN SODIUM ER 100 MG CAP PO SCH (21:00)
[2016-10-01] MEDS ORDERED: ATORVASTATIN 40 MG TAB PO SCH (21:00)
[2016-10-02 04:06] VITALS: BP 119/71; PULSE 66; TEMP 36.5; O2SAT 95
[2016-10-02] MEDS: HEPARIN SOD 5000 UNIT/0.5 ML CARP SQ SCH (06:06)
[2016-10-02 07:17] VITALS: BP 143/77; PULSE 64; TEMP 36.7; O2SAT 96
[2016-10-02 07:48] LABS: BUN/CREATININE RATIO 18.1 (10-20); CALCIUM 8.6 mg/dl (8.5-10.1); CREATININE 0.74 mg/dl (0.60-1.20); MAGNESIUM 2.5 mg/dl (1.8-2.4); POTASSIUM 4.4 mmol/L (3.5-5.1)
[2016-10-02] MEDS: ISOSORBIDE MONONITRATE 60 MG TABCR PO SCH (08:21)
[2016-10-02] MEDS: RANITIDINE HCL 150 MG TAB PO SCH (08:21)
[2016-10-02] MEDS: BUMETANIDE 1 MG TAB PO SCH (08:22)
[2016-10-02] MEDS: CHOLECALCIFEROL 1000 INTER.UNIT TAB PO SCH (08:22)
[2016-10-02] MEDS: CYANOCOBALAMIN 500 MCG TAB (VIT B-12) PO SCH (08:22)
[2016-10-02] MEDS: CLOPIDOGREL BISULFATE 75 MG TAB PO SCH (08:22)
[2016-10-02] MEDS: ASPIRIN 81 MG ECTAB PO SCH (08:22)
[2016-10-02] MEDS: METOPROLOL TARTRATE 25 MG TAB PO SCH (08:28)
[2016-10-02] MEDS: PHENOBARBITAL 32.4 MG TAB PO SCH (08:28)
--- NOTE | 2016-10-02 08:45 | Discharge Instructions ---
Discharge Instructions Date of Service Oct 02, 2016. Admission Reason for Admission: Chest Pain Discharge Discharge Diagnosis / Problem: Chest pain, Dizziness Discharge Goals Goal(s): Improve disease control Activity Recommendations Activity Limitations: per Instructions/Follow-up section . Instructions / Follow-Up Instructions / Follow-Up Please follow up with Dr. Swan, Cardiology, on Tuesday, October 04, 2016 at 10: 15am. *If you need to reschedule this appointment please call Dr. Swan's office at [phone]. Please follow up with Dr. Wolfe on Thursday, October 06, 2016 at 11:15am. *If you need to reschedule this appointment please call Dr. Wolfe's office at [phone]. Your medication Metoprolol has been RESTARTED. If you notice any symptoms on this, please discuss it with your fire ranger. If you notice any further chest pain, shortness of breath, dizziness, or fevers , please seek medical attention. Current Hospital Diet Patient's current hospital diet: AHA Diet (Heart Healthy) Discharge Diet Recommended Diet: AHA Diet (Heart Healthy) Pending Studies Studies pending at discharge: no Laboratory Results Hemoglobin A1c Test 08/19/16 05:55 Range/Units Estimated Average Glucose 128 mg/dl Hemoglobin A1c 6.1 H 4.5-5.6 % Lipid Panel Test 08/19/16 05:55 Range/Units Triglycerides Level 126 0-150 mg/dl Cholesterol Level 168 0-200 mg/dl HDL Cholesterol 54 mg/dl Cholesterol/HDL Ratio 3.1 LDL Cholesterol, Calculated 89 mg/dl Medical Emergencies . Who to Call and When: Medical Emergencies: If at any time you feel your situation is an emergency, please call 911 immediately. . Non-Emergent Contact Non-Emergency issues call your: Primary Care Provider . . "Provider Documentation" section prepared by Ayla Grimes. . VTE Core Measure Inpt VTE Proph given/why not?: Unfractionated heparin SQ
--- NOTE | 2016-10-02 08:53 | Discharge Summary ---
Discharge Summary Date of Service Oct 02, 2016. (Ayla Grimes MD) Discharge Summary Admission Date: Sep 30, 2016 at 21:36 Discharge Date: Oct 02, 2016 Discharge Disposition: Home Principal Diagnosis: Chest pain Problems/Secondary Diagnoses: Dizziness Immunizations: Have You Had Influenza Vaccine: Yes Influenza Vaccine Date: Feb 19, 2010 History of Tetanus Vaccine?: Yes Tetanus Immunization Date: Feb 19, 2004 History of Pneumococcal: Yes Pneumococcal Date: Feb 18, 2010 History of Hepatitis B Vaccine: No Procedures: ECHO - Conclusions -- * The left ventricle is normal in size. * There is moderate concentric left ventricular hypertrophy. * Left ventricular systolic function is normal. * Ejection Fraction = 55-60%. * The left ventricular wall motion is normal. * The right ventricle is normal in size and function. * The right ventricular systolic function is normal as assessed by tricuspid annular plane systolic excursion (TAPSE) (normal >1.5 cm). * Aortic valve sclerosis moderate, without significant aortic valvular stenosis. * Grade I diastolic dysfunction, (abnormal relaxation pattern). * Compared to the echo of 08/19/16 the LV function has returned to normal and the wall motion abnormlaities have resolved. (Ayla Grimes MD) Medication Reconciliation New Medications: Metoprolol Tartrate (Lopressor) 25 Mg Tab 25 MG PO BID, #60 TAB 2 Refills for your heart and blood pressure Continued Medications: Aspirin (Aspirin EC Low Dose) 81 Mg Ectab 81 MG PO QAM, #30 TAB 0 Refills Atorvastatin (Atorvastatin Calcium) 40 Mg Tab 40 MG PO HS, #30 TAB 0 Refills Bumetanide (Bumex) 1 Mg Tab 1 MG PO DAILY, TAB Cholecalciferol (Vitamin D3) 1,000 Unit Tab 1 TAB PO DAILY Clopidogrel Bisulfate (Clopidogrel) 75 Mg Tab 75 MG PO QAM, #30 TAB 0 Refills Cyanocobalamin (Vitamin B-12) 1,000 Mcg Tab 1000 MCG PO DAILY Isosorbide Mononitrate Ext Rel (Imdur Ext Rel) 60 Mg Ertab 60 MG PO QAM Phenobarbital (Phenobarbital) 16.2 Mg Tab 2 TABS PO BID, #120 Phenytoin Sodium (Dilantin) 100 Mg Cap 200 MG PO QPM, CAP Ranitidine Hcl (Zantac) 150 Mg Tab 150 MG PO BID, TAB Discontinued Medications: Lisinopril (Lisinopril) 5 Mg Tab 5 MG PO QAM, #30 TAB 0 Refills Discharge Exam Review of Systems: Constitutional: No fever, No chills, No sweats Eyes: No worsening of vision ENT: No hearing loss Respiratory: No cough, No sputum, No wheezing Cardiovascular: No chest pain, No orthopnea Abdomen: No pain, No nausea, No vomiting Musculoskeletal: No joint pain, No muscle pain Genitourinary - Female: No dysuria, No hematuria Neurologic: No memory loss, No paralysis, No weakness Psychiatric: No depression symptoms Endocrine: No fatigue, No excessive thirst Hematologic / Lymphatic: No abnormal bleeding/bruising Integumentary: No rash Physical Exam: General Appearance: WD/WN, no apparent distress Eyes: normal inspection, PERRL ENT: hearing grossly normal Neck: supple, no JVD Respiratory/Chest: lungs clear, normal breath sounds, no respiratory distress Cardiovascular: regular rate, rhythm, no murmur Abdomen / GI: normal bowel sounds, non tender, soft Extremities: no pedal edema Neurologic/Psychiatric: alert, normal mood/affect, normal reflexes, oriented x 3 Skin: no rash (Ayla Grimes MD) Hospital Course HPI: 81 y/o F Hx CAD, HTN, seizures, 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 Pt states she developed central CP with tachycardia and an elevated BP earlier in the day. She was slightly SOB and became dizzy when she stood up. She therefore alerted EMS and presented to the hospital for evaluation. She has occasional sharp pains in her chest which she states is not unusual for her, however, her symptoms from earlier have resolved. Initial EKG is unchanged, initial trop is negative. HOSPITAL COURSE: Her chest pain resolved during admission. She was occasionally dizzy, but overnight she felt well, and has been ambulating on her own without any symptoms. Her echo revealed her previous Takotsubo's cardiomyopathy has resolved. Active issues: Chest pain - resolved. Troponins negative x 4. Repeat echo showed IMPROVED EF (was 40% in July, now 55-60%; NO WALL MOTION ABNORMALITIES). 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 She was taken off her beta enma recently - she thinks due to bradycardia. This was restarted at 25mg BID (previously was taking 50mg BID). Since restarting she has had no bradycardia and her tachycardia has resolved. Continue aspirin, statin Intermittent Tachycardia Metoprolol has been resumed albeit at a lower dose. No dysrhythmia has been seen, however. Chronic Dizziness This is a chronic issue, multiple etiologies explored - not vertiginous, orthostatic, dehydration. Normal cerebellar exam and it improved with rest. 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 Hypertension Since we are resuming metoprolol will stop her STORM. CKD stage 2 Creatinine stable during admission H/o Takotsubo's cardiomyopathy, resolved Repeat echo today with preserved EF and normal wall motion. H/o PMR vs fibromyalgia No symptoms of either during admission ESR 19 DVT proph - Heparin TID CODE STATUS: FULL DISPO: Discharged home in good condition Total Time Spent: Greater than 30 minutes This includes examination of the patient, discharge planning, medication reconciliation, and communication with other providers. (Ayla Grimes MD) Resident Physician Supervision Note: I interviewed and examined the patient. Discussed with Dr. Grimes and agree with findings and plan as documented in the note. Any exceptions or clarifications are listed here: None Documented By: Florin Wall feeling better wants to go home no further cp. cardiology input appreciated. vitals noted nad breathing unlabored no pallor or icterus cp - resolved. cardiac enzymes negative tachycardia - appearing to be metoprolol dosing related - now better with mid range dosing. follow up as outpt. advised to check HR/BP ~BID randomly and have info to f/u w PCP Total Time Spent: Less than 30 minutes (Florin Wall, [email or web address]) Discharge Instructions Please refer to the electronic Patient Visit Report (Discharge Instructions) for additional information. (Ayla Grimes MD) Additional Copies To Jerad Wolfe M.D. Resident Tracking Resident Involvement: Resident Care Provided Care Provided: Adult Hospital Medicine (Ayla Grimes MD)
[2016-10-02 12:13] VITALS: BP 138/78; PULSE 72; TEMP 36.6; O2SAT 98
--- NOTE | 2016-10-02 14:39 | Cardiology Consultation ---
Cardiology Consultation Date of Consultation: Oct 02, 2016. Requesting Physician: Dr. Schmid Attending Physician: Dr. Schmid. Reason for Consultation: -- Takotsubo Syndrome. -- Chest Pain / Tachycardia / Hypertension. -- Non-obstructive CAD on Cardiac Cath July 2016. Pt evaluation today including: conversation w/ patient, physical exam, chart review, lab review, review of studies, review of inpatient medication list History of Present Illness Mrs. Wood is an 81 year old white female with a history of Seizure Disorder, TIA , Hypertension, Dyslipidemia, PUD, and Takotsubo Cardiomyopathy (July 2016) who presented acutely to [facility] ER on 09/30/2016 complaining of Central Chest Pain with an elevated HR and elevated BP followed by a sensation of dyspnea and orthostatic dizziness -- these symptoms were present throughout the day. Symptoms did not worsen with activity nor did they improve with rest. She denies any radiation of her CP and denies any associated nausea / vomiting / diaphoresis. These symptoms prompted her to seek medical attention. This episode of CP was dissimilar when compared to prior Stress Induced CM / NSTEMI sustained in July 2016. By the time she arrived at the ER her symptoms had resolved, although she did note an occasional sharp chest pain which is not unusual for her. Patient admitted for further cardiac evaluation: EKG's showed no acute changes and Troponin I was negative x 4. Additionally -- ECHOCARDIOGRAM 10/01/2016 showed the followin. Normal LV size and systolic function. 2. LVEF 55% to 60% with normal wall motion. 3. Moderate concentric LVH with grade I diastolic dysfunction. 4. Aortic valve sclerosis without stenosis. 5. Normal RV size and systolic function. 6. When compared to July 2016 Echo -- LV systolic function normalized (LVEF was 40%). The patient is currently being seen in room 239 bed 1. She offers no complaints. She has been up and ambulating in the hallway without limiting cardiopulmonary symptoms. She specifically denies any exertional chest pain, heaviness, tightness, pressure, or discomfort. She denies any exertional neck, jaw, back, and she denies any shortness of breath at rest, unusual dyspnea on exertion, or any decreased exertional tolerance. She denies any orthopnea or PND. She denies any palpitations, syncope, or near-syncope. Past Medical/Surgical History 1. Takotsubo Cardiomyopathy 08/18/2016 / NSTEMI. 2. Non-obstructive CAD on Cardiac Catheterization 08/18/2016: -- LMCA --Luminal irregularities only. -- LAD -- 40% Proximal stenosis, 30% to 40% midvessel stenosis. -- LCx -- 40% Midvessel stenosis. -- OM1 -- Luminal irregularities only. -- OM2 -- 40% stenosis. -- RCA -- Dominant vessel, 60% to 70% early distal stenosis. -- PDA, PAV -- Mild disease. 3. Hypertension. 4. Dyslipidemia. 5. Seizure disorder. 6. H/O TIA. 7. H/O PUD. 8. Diverticulosis. 9. PMR. 10. REJI positive. 11. Impaired glucose tolerance. 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 Family History Diabetes mellitus FH: heart disease Hypertension Seizures Social History Smoking Status: Never Smoker History of Alcohol Use: No , currently ill. Review of Systems Respiratory: No cough, No sputum, No wheezing, No shortness of breath, No dyspnea on exertion Cardiac: + edema (left leg, but improved now), + palpitations, No chest pain, No orthopnea, No PND Allergies Coded Allergies: Azithromycin (Verified Allergy, Intermediate, UNKNOWN, 08/30/16) Iodine (Verified Allergy, Mild, 08/30/16) Sulfa Antibiotics (Verified Allergy, Mild, `, 08/30/16) Sulfamethoxazole (Verified Allergy, Mild, 08/30/16) Medications Current Inpatient Medications Medications (Trade) Dose Ordered Sig/Jazlyn Route Start Time Stop Time Status Last Admin Dose Admin Aspirin (Ecotrin Tab) 81 mg QAM PO 10/01/16 09:00 10/31/16 08:59 10/02/16 08:22 81 MG Atorvastatin Calcium (Lipitor Tab) 40 mg HS PO 10/01/16 21:00 10/31/16 20:59 10/01/16 20:54 40 MG Bumetanide (Bumex Tab) 1 mg DAILY PO 10/01/16 09:00 10/31/16 08:59 10/02/16 08:22 1 MG Cholecalciferol (Vitamin D Tab) 1,000 inter.unit DAILY PO 10/01/16 09:00 10/31/16 08:59 10/02/16 08:22 1,000 INTER.UNIT Clopidogrel Bisulfate (plAVix TAB) 75 mg QAM PO 10/01/16 09:00 10/31/16 08:59 10/02/16 08:22 75 MG Cyanocobalamin (Vitamin B-12 Tab) 1,000 mcg DAILY PO 10/01/16 09:00 10/31/16 08:59 10/02/16 08:22 1,000 MCG Isosorbide Mononitrate (Imdur Ext Rel Tab) 60 mg QAM PO 10/01/16 09:00 10/31/16 08:59 10/02/16 08:21 60 MG Phenobarbital (Phenobarbital Tab) 32.4 mg BID PO 09/30/16 22:30 10/30/16 22:29 10/02/16 08:28 32.4 MG Phenytoin Sodium (Dilantin Er Cap) 200 mg QPM PO 10/01/16 21:00 10/31/16 20:59 10/01/16 20:55 200 MG Ranitidine HCl (zANTac TAB) 150 mg BID PO 10/01/16 09:00 10/31/16 08:59 10/02/16 08:21 150 MG Heparin Sodium (Porcine) (Heparin Sq 5000 Unit/0.5ml) 5,000 unit Q8 SQ 10/01/16 06:00 10/31/16 05:59 10/02/16 06:06 5,000 UNIT Acetaminophen (Tylenol Tab) 650 mg Q4H PRN PO 09/30/16 21:45 10/30/16 21:44 Al Hydrox/Mg Hydrox/Simethicone (Maalox Max Susp) 15 ml Q4H PRN PO 09/30/16 21:45 10/30/16 21:44 Magnesium Hydroxide (Milk Of Magnesia Susp) 30 ml Q12H PRN PO 09/30/16 21:45 10/30/16 21:44 Ondansetron HCl (Zofran Inj) 4 mg Q6H PRN IV 09/30/16 21:45 10/30/16 21:44 Nitroglycerin (Nitrostat Tab) 0.4 mg UD PRN SL 09/30/16 21:45 10/30/16 21:44 Morphine Sulfate (MoRPHine SULFATE INJ) 2 mg Q30M PRN IV 09/30/16 21:45 10/14/16 21:44 Polyethylene (Miralax Powder Packet) 17 gm DAILY PRN PO 09/30/16 21:45 10/30/16 21:44 Miscellaneous (Iv Fluids Completed) 1 ea PRN PRN N/A 09/30/16 23:30 09/30/17 23:29 Metoprolol Tartrate (Lopressor Tab) 25 mg BID PO 10/01/16 10:15 10/31/16 10:14 10/02/16 08:28 25 MG Physical Exam Vital Signs Past 12 Hours Date Time Temp Pulse Resp B/P (MAP) Pulse Ox O2 Delivery O2 Flow Rate FiO2 10/02/16 12:13 36.6 72 20 138/78 (98) 98 Room Air 10/02/16 08:05 Room Air 10/02/16 07:17 36.7 64 20 143/77 (99) 96 Room Air 10/02/16 04:06 36.5 66 18 119/71 (87) 95 Room Air 10/02/16 04:00 Room Air General: Patient in no acute distress. HEENT: Head is atraumatic, normocephalic. EOMs intact. Sclerae anicteric. Facies symmetric. No perioral cyanosis. Neck: No thyromegaly, adenopathy, or JVD. Carotid upstrokes +2 bilaterally without bruits. JVP is not elevated. Chest and Lungs: Clear to auscultation throughout all lung martell, no wheezes, rales, or rhonchi. CVS: S1 and S2 are regular without murmur, gallop, or rub. PMI is nondisplaced. No lifts, heaves, or thrills. No abdominal aortic or renal bruits. Abdominal Exam: Bowel sounds present. No masses, organomegaly, or tenderness. Extremities: No clubbing, cyanosis, or edema. Intact posterior tibial and radial pulses bilaterally. Neurologic Exam: Patient is awake, alert, and oriented. Pleasant and cooperative. Answers questions appropriately. Speech is clear. Normal movement in all 4 extremities. Gait pattern - ambulates with a wheeled walker. Data Laboratory Results: Last 24 Hours Test 10/01/16 18:18 10/02/16 06:33 Erythrocyte Sedimentation Rate 19 mm/hr Vitamin B12 Level 1254 pg/mL Thyroid Stimulating Hormone (TSH) 2.640 uIu/ml Phenytoin (Dilantin) Level 10.2 mcg/mL Phenobarbital Level 17.7 mcg/mL Sodium Level 139 mmol/L Potassium Level 4.4 mmol/L Chloride Level 103 mmol/L Carbon Dioxide Level 31 mmol/L Anion Gap 5.0 mmol/L Blood Urea Nitrogen 13 mg/dl Creatinine 0.74 mg/dl Est Creatinine Clear Calc Drug Dose 56.0 ml/min Estimated GFR () 88.1 Estimated GFR (Non- 76.0 BUN/Creatinine Ratio 18.1 Random Glucose 97 mg/dl Calcium Level 8.6 mg/dl Magnesium Level 2.5 mg/dl Imaging: EKG: No acute changes. Telemetry reviewed: NSR throughout. Assessment & Plan 1. Chest Pain with associated elevation of HR / BP: -- Resolved, no further symptoms since admission. -- Cardiac enzymes, EKG's, Telemetry monitoring -- all are within normal limits. -- Continue usual cardiac / antihypertensive regimen. -- No need for further cardiac evaluation at this time. 2. H/O Takotsubo Cardiomyopathy / NSTEMI 08/18/2016 / Non-obstructive CAD: -- LV systolic function and wall motion has normalized. -- LVEF 55% to 60%. -- Remain on long term care social worker Lopressor 25 mg bid. -- Remain on residential Imdur. -- Continue Aspirin 81 mg daily. -- Continue Plavix 75 mg daily. -- Continue Atorvastatin 40 mg daily. Patient is stable from a cardiac standpoint for discharge to home. Thank you for asking us to see this patient in consultation. ATTENDING NOTE: Agree with the documentation provided by Yusuf Castorena PA-C. Patient without evidence of ACS. Symptoms resolved. Safe for discharge and f/u in the outpatient setting.
[2016-10-02 15:57] VITALS: BP 138/78; PULSE 72; TEMP 36.6; O2SAT 98
[2016-10-02] MEDS ORDERED: METO50TA16 PO (16:26)
== END 2016-10-02 18:17 | disposition home or self-care (01) ==
LOC: EDBD 17:52 → C.EDC 17:53 → C.2T 21:36 → ENRESERV 21:48
PROVIDERS: ADMIT Internal Medicine; ATTEND Family Medicine
DX: R07.9 Chest pain, unspecified (principal); R00.0 Tachycardia, unspecified; I51.81 Takotsubo syndrome; I12.9 Hypertensive chronic kidney disease with stage 1 through stage 4 chronic kidney disease, or unspecified chronic kidney disease; N18.2 Chronic kidney disease, stage 2 (mild); M17.9 Osteoarthritis of knee, unspecified; G40.909 Epilepsy, unspecified, not intractable, without status epilepticus; I25.10 Atherosclerotic heart disease of native coronary artery without angina pectoris; E78.5 Hyperlipidemia, unspecified; Z79.899 Other long term (current) drug therapy; Z86.73 Personal history of transient ischemic attack (TIA), and cerebral infarction without residual deficits; Z79.82 Long term (current) use of aspirin; Z87.11 Personal history of peptic ulcer disease; Z83.3 Family history of diabetes mellitus; Z82.49 Family history of ischemic heart disease and other diseases of the circulatory system

== ENCOUNTER 2018-08-30 20:38 | Observation (INO) ==
[2018-08-30 21:14] LABS: Basophils # (auto) 0.02 K/uL (0-0.2); Basophils % (auto) 0.3 %; Eosinophils # (auto) 0.36 K/uL (0-0.5); Eosinophils % (auto) 5.7 %; Hematocrit (blood only) 39.1 % (37-47); Hemoglobin 13.7 g/dL (12.0-16.0); Lymphocytes # (auto) 1.62 K/uL (1.2-3.4); Lymphocytes % (auto) 25.5 %; Mean Corpuscular Volume 93.3 fL (80-100); Mean Platelet Volume 9.8 fL (7.4-10.4); Monocytes # (auto) 0.49 K/uL (0.11-0.59); Monocytes % (auto) 7.7 %; Neutrophils # (auto) 3.87 K/uL (1.4-6.5); Neutrophils % (auto) 60.8 %; Platelet Count 267 K/uL (130-400); RDW Coefficient of Variation 13.1 % (11.5-14.5); RDW Standard Deviation 44.6 fL (36.4-46.3); Red Blood Count 4.19 M/uL (4.2-5.4); White Blood Count 6.36 K/uL (4.8-10.8)
[2018-08-30 21:30] LABS: Albumin Level 3.8 gm/dl (3.4-5.0); BUN Creatinine Ratio 16.8 (10-20); Calcium 9.4 mg/dl (8.5-10.1); Creatinine Clr Calc Pharmacy 63.2 ml/min; Est GFR (African American) 93.5; Est GFR (Non-African American) 80.7; Potassium 3.3 mmol/L (3.5-5.1)
[2018-08-30 21:33] LABS: Bilirubin,Total 0.3 mg/dl (0.2-1); Globulin 3.8 gm/dl (2.5-4.0); Total Protein 7.6 gm/dl (6.4-8.2)
[2018-08-30] MEDS ORDERED: ONDANSETRON INJ 2 MG/ML 2 ML VIAL IV STA (21:44)
[2018-08-30] MEDS ORDERED: MECLIZINE 12.5 MG TAB PO STA (21:44)
[2018-08-30] MEDS ORDERED: DiphenhydrAMINE HCL 50 MG/ML VIAL IV STA (21:44)
[2018-08-30] MEDS ORDERED: SODIUM CHLORIDE 0.9% 1000ML 500 ML IV ONE ×2 (21:44→23:08)
[2018-08-30 22:30] LABS: Phenytoin (Dilantin) 8.2 mcg/ml (10-20)
--- NOTE | 2018-08-30 22:51 | CT Scan Report ---
CT head/brain wo con CLINICAL HISTORY: 82 years-old Female with dizzy, nausea, ear pain, weak. Acute weakness with dizzin ess and nausea TECHNIQUE: Multiple axial CT images of the head were obtained without contrast. A dose lowering tech nique was utilized adhering to the principles of ALARA. CT DOSE: 537.48 mGy.cm COMPARISON: CT head 06/22/2015 FINDINGS: No acute intracranial hemorrhage, midline shift, intracranial mass, hydrocephalus, territorial ischem ia or abnormal extra-axial collection. Age-related involutional changes with ex vacuo ventriculomegal y. Senescent calcifications of the lentiform nuclei. Mild chronic microvascular ischemic changes. Cer ebral vascular calcifications are noted. Megacisterna magna. The calvarium is intact. The paranasal sinuses, mastoid air cells, and middle ear cavities are clear . IMPRESSION: No acute intracranial abnormality. The above report was generated using voice recognition software. It may contain grammatical, syntax o r spelling errors. Electronically signed by: Henri Castañeda M.D. 08/30/2018 10:49 PM
--- NOTE | 2018-08-30 23:05 | Emergency Department Note ---
Entered by Igor Peña acting as a scribe for Raúl Casillas MD History of Present Illness General Chief complaint: Vertigo Stated complaint: weakness, dizzy Time Seen by Provider: 08/30/18 21:39 Source: patient Mode of arrival: EMS Limitations: no limitations History of Present Illness Onset (ago): day(s) (yesterday) Location: right (ear) Pain Consistency: + constant Maximum Pain Intensity: 0 Quality: + other (whistle noise) Exacerbated By: + movement Associated symptoms: + nausea/vomiting (nausea) and + other (dizziness, swelling, stuffy nose) The patient is a 82 year old female who presents to the Emergency Room with complaints of right ear pain starting yesterday. She states she could not hear from her right ear. She states she had an earache and started to hear a whistle and noise in her ear. She notes she had right ear swelling. She states today she woke up and her ear pain felt better. She states in the afternoon she took a nap and then wok up really dizzy, She states she was nauseous and really dizzy. She notes her daughter called EMS. She states when EMS got to the door she got up and almost passed out. She notes she is still dizzy and nauseous when laying down. She notes today she has been able to hear a little out of her ear. She states she has a stuffy nose. She states she had vertigo years ago. 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 She states she had broken heart syndrome 3 years ago but states she has not had problems with her heart since then. Home Medications Home Medications Medication Instructions Recorded Confirmed Type aspirin [Aspir-81] 81 mg PO QAM 08/30/18 08/30/18 History atorvastatin 80 mg PO DAILY 08/30/18 08/30/18 History bumetanide 1 mg PO DAILY 08/30/18 08/30/18 History cholecalciferol (vitamin D3) 1,000 unit PO DAILY 08/30/18 08/30/18 History clopidogrel 75 mg PO DAILY 08/30/18 08/30/18 History isosorbide mononitrate 60 mg PO QAM 08/30/18 08/30/18 History metoprolol tartrate 25 mg PO BID 08/30/18 08/30/18 History phenytoin sodium extended 200 mg PO HS 08/30/18 08/30/18 History ranitidine HCl 150 mg PO BID 08/30/18 08/30/18 History Allergies Allergy/AdvReac Type Severity Reaction Status Date / Time mivacurium Allergy Intermediate UNKNOWN Verified 08/30/18 22:20 iodine Allergy Mild Verified 08/30/16 23:54 Sulfa (Sulfonamide Allergy Mild ` Verified 08/30/16 23:54 Antibiotics) sulfamethoxazole Allergy Mild Verified 08/30/16 23:54 Past Med/Surg History Medical History Stomach ulcer (Chronic) Diabetes (Chronic) Diverticulitis (Chronic) Hypertension (Chronic) Seizure (Chronic) Broken heart syndrome Family History Other Family history non-contributory Social History Feels Safe at Home: Yes Smoking Status: Never smoker Review of Systems See HPI for pertinent positives & negatives. and A total of 10 systems reviewed and were otherwise negative Physical Exam Vital Signs Vital Signs - 24 hr 08/30/18 20:40 08/30/18 20:44 08/30/18 20:57 Temperature 36.5 C Temperature Source Oral Sepsis Recent Fever Within 48 Hours No Sepsis New/Unexplained Change in Mental Status No Sepsis Action Taken by Nursing No Action Required Pulse Rate 74 80 82 Pulse Rate [Right Finger] Pulse Rate from SpO2 Sensor Pulse Rhythm Regular Pulse Rhythm [Right Finger] Pulse Strength Normal Pulse Strength [Right Finger] Respiratory Rate 14 18 14 Respiratory Effort / Characteristics Non-Labored Respiratory Depth Normal Respiratory Pattern Regular Blood Pressure 180/90 H 180/90 H Blood Pressure [Right Arm] Blood Pressure Mean 120 120 Blood Pressure Mean [Right Arm] Blood Pressure Position Sitting Blood Pressure Position [Right Arm] Pulse Oximetry 96 Oxygen Delivery Method Room Air 08/30/18 21:00 08/30/18 21:31 08/30/18 22:01 Temperature Temperature Source Sepsis Recent Fever Within 48 Hours Sepsis New/Unexplained Change in Mental Status Sepsis Action Taken by Nursing Pulse Rate 75 75 73 Pulse Rate [Right Finger] Pulse Rate from SpO2 Sensor Pulse Rhythm Pulse Rhythm [Right Finger] Pulse Strength Pulse Strength [Right Finger] Respiratory Rate 15 14 Respiratory Effort / Characteristics Respiratory Depth Respiratory Pattern Blood Pressure Blood Pressure [Right Arm] Blood Pressure Mean Blood Pressure Mean [Right Arm] Blood Pressure Position Blood Pressure Position [Right Arm] Pulse Oximetry Oxygen Delivery Method 08/30/18 22:14 08/30/18 22:15 08/30/18 22:31 Temperature Temperature Source Sepsis Recent Fever Within 48 Hours Sepsis New/Unexplained Change in Mental Status Sepsis Action Taken by Nursing Pulse Rate 80 82 Pulse Rate [Right Finger] 88 Pulse Rate from SpO2 Sensor 81 77 Pulse Rhythm Pulse Rhythm [Right Finger] Regular Pulse Strength Pulse Strength [Right Finger] Normal Respiratory Rate 24 18 15 Respiratory Effort / Characteristics Non-Labored Respiratory Depth Normal Respiratory Pattern Regular Blood Pressure 184/87 H Blood Pressure [Right Arm] 184/87 H Blood Pressure Mean 119 Blood Pressure Mean [Right Arm] 119 Blood Pressure Position Blood Pressure Position [Right Arm] Lying Pulse Oximetry 97 95 95 Oxygen Delivery Method Room Air 08/30/18 23:01 08/30/18 23:31 08/31/18 01:13 Temperature Temperature Source Sepsis Recent Fever Within 48 Hours Sepsis New/Unexplained Change in Mental Status Sepsis Action Taken by Nursing Pulse Rate 91 H 83 Pulse Rate [Right Finger] 78 Pulse Rate from SpO2 Sensor Pulse Rhythm Pulse Rhythm [Right Finger] Pulse Strength Pulse Strength [Right Finger] Respiratory Rate 22 13 Respiratory Effort / Characteristics Respiratory Depth Respiratory Pattern Blood Pressure Blood Pressure [Right Arm] 158/71 H Blood Pressure Mean Blood Pressure Mean [Right Arm] 100 Blood Pressure Position Blood Pressure Position [Right Arm] Pulse Oximetry 96 99 Oxygen Delivery Method Room Air Room Air GENERAL: Patient is in no acute distress. HEENT: No acute trauma, normocephalic atraumatic, mucous membranes moist, no nasal congestion, no scleral icterus. Right TM has fluid behind it. No erythema. No nystagmus. NECK: No stridor, no adenopathy, no meningismus, trachea is midline. LUNGS: Clear to auscultation bilaterally, no wheeze, no rhonchi, breath sounds equal. HEART: Without murmurs gallops or rubs, regular rate and rhythm. ABDOMEN: Soft, nontender, bowel sounds positive, no hernias, no peritonitis. EXTREMITIES: No cyanosis or edema, full range of motion of all the joints without pain or difficulty, no signs for acute trauma. NEUROLOGIC: Oriented x 3, no acute motor or sensory deficits, no focal weakness. No cerebellar deficits or pronator drift. No slurred speech or facial droop. SKIN: No rash, no jaundice, no diaphoresis. Course 2141: The patient was evaluated in room A4B, and a complete history and physical examination were performed. 2254: Nursing staff states the patient went to the bathroom and was very off balance. 2214: I reevaluated the patient. She is too dizzy to stand-up. 2220: I discussed the patient's case with Dr. Siomara Ortega - [facility]. She will evaluate the patient for further management Administered Medications Discontinued Medications Diphenhydramine HCl (Benadryl) 6.25 mg IV NOW STA Stop: 08/30/18 21:45 Last Admin: 08/30/18 21:58 Dose: 6.25 mg Documented by: [id number] Sodium Chloride (Nss 1000ml) 500 mls @ 999 mls/hr IV .Q31M ONE Stop: 08/30/18 22:14 Last Infusion: 08/30/18 22:55 Dose: 0 mls/hr Documented by: [id number] Admin: 08/30/18 21:58 Dose: 999 mls/hr Documented by: [id number] Sodium Chloride (Nss 1000ml) 500 mls @ 999 mls/hr IV .Q31M ONE Stop: 08/30/18 23:38 Last Infusion: 08/31/18 00:20 Dose: 0 mls/hr Documented by: [id number] Admin: 08/30/18 23:31 Dose: 999 mls/hr Documented by: [id number] Meclizine HCl (Antivert) 12.5 mg PO NOW STA Stop: 08/30/18 21:45 Last Admin: 08/30/18 21:58 Dose: 12.5 mg Documented by: [id number] Ondansetron HCl (Zofran) 4 mg IV NOW STA Stop: 08/30/18 21:45 Last Admin: 08/30/18 21:58 Dose: 4 mg Documented by: [id number] Medical Decision Making Differential Diagnosis Differential Diagnosis: Vertigo, stroke, Dilantin toxicity, phenobarbital toxicity, otitis media, anemia, UTI, dehydration, and electrolyte imbalance. Medical Records Attestation: I reviewed the patient's medical records. Home Medications Current Medication List: was personally reviewed by me Laboratory Data Attestation: I reviewed the patient's lab results. Result diagrams: 08/30/18 21:02 08/30/18 21:02 Lab Results 08/30/18 08/30/18 08/30/18 Range/Units 21:02 21:02 21:02 WBC 6.36 (4.8-10.8) K/uL RBC 4.19 L (4.2-5.4) M/uL Hgb 13.7 (12.0-16.0) g/dL Hct 39.1 (37-47) % MCV 93.3 (80-100) fL MCH 32.7 (25-34) pg MCHC 35.0 (32-36) g/dL RDW Std Deviation 44.6 (36.4-46.3) fL RDW Coeff of More 13.1 (11.5-14.5) % Plt Count 267 (130-400) K/uL MPV 9.8 (7.4-10.4) fL Immature Gran % (Auto) 0.0 % Neut % (Auto) 60.8 % Lymph % (Auto) 25.5 % [place] % (Auto) 7.7 % Eos % (Auto) 5.7 % Baso % (Auto) 0.3 % Immature Gran # (Auto) 0.00 (0.00-0.02) K/uL Neut # (Auto) 3.87 (1.4-6.5) K/uL Lymph # (Auto) 1.62 (1.2-3.4) K/uL [place] # (Auto) 0.49 (0.11-0.59) K/uL Eos # (Auto) 0.36 (0-0.5) K/uL Baso # (Auto) 0.02 (0-0.2) K/uL Sodium 137 (136-145) mmol/L Potassium 3.3 L (3.5-5.1) mmol/L Chloride 101 (98-107) mmol/L Carbon Dioxide 28 (21-32) mmol/L Anion Gap 8.0 (3-11) BUN 12 (7-18) mg/dl Creatinine 0.70 (0.6-1.2) mg/dl Est Cr Clr Drug Dosing 63.2 ml/min Est GFR ( Amer) 93.5 Est GFR (Non-Af Amer) 80.7 BUN/Creatinine Ratio 16.8 (10-20) Glucose 143 H (70-99) mg/dl Calcium 9.4 (8.5-10.1) mg/dl Total Bilirubin 0.3 (0.2-1) mg/dl AST 29 (15-37) U/L ALT 23 (12-78) U/L Alkaline Phosphatase 117 (45-117) U/L Total Protein 7.6 (6.4-8.2) gm/dl Albumin 3.8 (3.4-5.0) gm/dl Globulin 3.8 (2.5-4.0) gm/dl Albumin/Globulin Ratio 1.0 (0.9-2) Urine Color Urine Appearance (Clear) Urine pH (4.5-7.5) Ur Specific Midway (1.000-1.030) Urine Protein (Negative) Urine Glucose (UA) (Negative) Urine Ketones (Negative) Urine Blood (Negative) Urine Nitrite (Negative) Urine Bilirubin (Negative) Urine Urobilinogen (Negative) Ur Leukocyte Esterase (Negative) Urine WBC (Auto) (0-5) /hpf Urine RBC (Auto) (0-4) /hpf U Hyaline Cast (Auto) (0-5) /lpf U Epithel Cells (Auto) (0-5) /lpf Urine Bacteria (Auto) (Negative) Phenytoin 8.2 L (10-20) mcg/ml Phenobarbital 4.0 L (15-40) mcg/mL 08/30/18 Range/Units 22:55 WBC (4.8-10.8) K/uL RBC (4.2-5.4) M/uL Hgb (12.0-16.0) g/dL Hct (37-47) % MCV (80-100) fL MCH (25-34) pg MCHC (32-36) g/dL RDW Std Deviation (36.4-46.3) fL RDW Coeff of More (11.5-14.5) % Plt Count (130-400) K/uL MPV (7.4-10.4) fL Immature Gran % (Auto) % Neut % (Auto) % Lymph % (Auto) % [place] % (Auto) % Eos % (Auto) % Baso % (Auto) % Immature Gran # (Auto) (0.00-0.02) K/uL Neut # (Auto) (1.4-6.5) K/uL Lymph # (Auto) (1.2-3.4) K/uL [place] # (Auto) (0.11-0.59) K/uL Eos # (Auto) (0-0.5) K/uL Baso # (Auto) (0-0.2) K/uL Sodium (136-145) mmol/L Potassium (3.5-5.1) mmol/L Chloride (98-107) mmol/L Carbon Dioxide (21-32) mmol/L Anion Gap (3-11) BUN (7-18) mg/dl Creatinine (0.6-1.2) mg/dl Est Cr Clr Drug Dosing ml/min Est GFR ( Amer) Est GFR (Non-Af Amer) BUN/Creatinine Ratio (10-20) Glucose (70-99) mg/dl Calcium (8.5-10.1) mg/dl Total Bilirubin (0.2-1) mg/dl AST (15-37) U/L ALT (12-78) U/L Alkaline Phosphatase (45-117) U/L Total Protein (6.4-8.2) gm/dl Albumin (3.4-5.0) gm/dl Globulin (2.5-4.0) gm/dl Albumin/Globulin Ratio (0.9-2) Urine Color Yellow Urine Appearance Clear (Clear) Urine pH 7.0 (4.5-7.5) Ur Specific [place]way 1.011 (1.000-1.030) Urine Protein Negative (Negative) Urine Glucose (UA) Negative (Negative) Urine Ketones Negative (Negative) Urine Blood Trace H (Negative) Urine Nitrite Negative (Negative) Urine Bilirubin Negative (Negative) Urine Urobilinogen Negative (Negative) Ur Leukocyte Esterase Negative (Negative) Urine WBC (Auto) 1-5 (0-5) /hpf Urine RBC (Auto) 5-10 H (0-4) /hpf U Hyaline Cast (Auto) 1-5 (0-5) /lpf U Epithel Cells (Auto) >30 H (0-5) /lpf Urine Bacteria (Auto) Negative (Negative) Phenytoin (10-20) mcg/ml Phenobarbital (15-40) mcg/mL Imaging Data Radiologist's Impression: Radiology results as stated below per my review and the radiologist's interpretation: CT head/brain wo con CLINICAL HISTORY: 82 years-old Female with dizzy, nausea, ear pain, weak. Acute weakness with dizziness and nausea TECHNIQUE: Multiple axial CT images of the head were obtained without contrast. A dose lowering technique was utilized adhering to the principles of ALARA. CT DOSE: 537.48 mGy.cm COMPARISON: CT head 06/22/2015 FINDINGS: No acute intracranial hemorrhage, midline shift, intracranial mass, hydrocephalus, territorial ischemia or abnormal extra-axial collection. Age- related involutional changes with ex vacuo ventriculomegaly. Senescent ca lcifications of the lentiform nuclei. Mild chronic microvascular ischemic changes. Cerebral vascular calcifications are noted. Megacisterna magna. The calvarium is intact. The paranasal sinuses, mastoid air cells, and middle ear cavities are clear. IMPRESSION: No acute intracranial abnormality. The above report was generated using voice recognition software. It may contain grammatical, syntax or spelling errors. Electronically signed by: Henri Castañeda M.D. 08/30/2018 10:49 PM ECG Data Attestation: I personally reviewed and interpreted this ECG as follows: Indication: nausea Rate (beats per minute): 76 Rhythm: sinus rhythm Findings: no PVC and no ST elevation Blood Pressure Blood Pressure Findings: Elevated blood pressure Blood Pressure Disposition: further management by hospitalist [facility] Narrative There is no leukocytosis or concerning anemia. No significant electrolyte abnormality or kidney failure. No evidence for elevation to the LFTs. Urinalysis does not show evidence for infection. Dilantin and phenobarbital levels were not toxic. Brain CT shows no acute bleed or mass-effect. EKG shows a sinus rhythm, no acute ischemia. On exam, there were no focal neurologic deficits. The patient was not toxic or febrile. The patient was extremely dizzy and had a difficult time ambulating even after being medicated. Patient received IV Benadryl, oral meclizine, IV Zofran and IV saline. The patient does feel somewhat better when she is lying still but really, cannot stand on her own or even get to the bathroom on her own. I do think a hospital stay is warranted. The patient is quite dizzy. This could be a posterior circulation stroke I suppose, or, this could be a severe case of vertigo. Patient is not a candidate for TPA given her exam. Further inpatient work-up is warranted, further care is warranted. I did speak to the patient and case management. The on-call hospitalist was consulted. Impression & Plan Stroke-like symptoms, Weakness, Dizziness Discharge Plan Visit Data Chief Complaint: Vertigo Stated Complaint: weakness, dizzy ED Provider: Raúl Casillas Discharge Problem: Stroke-like symptoms, Weakness, Dizziness Forms Stand Alone Forms: My [facility] Prescriptions Prescriptions: No Action isosorbide mononitrate 60 mg tablet extended release 24 hr 60 mg PO QAM RF: 0 bumetanide 1 mg tablet 1 mg PO DAILY RF: 0 metoprolol tartrate 25 mg tablet 25 mg PO BID RF: 0 ranitidine HCl 150 mg tablet 150 mg PO BID RF: 0 phenytoin sodium extended 100 mg capsule 200 mg PO HS RF: 0 clopidogrel 75 mg tablet 75 mg PO DAILY RF: 0 atorvastatin 80 mg tablet 80 mg PO DAILY RF: 0 aspirin [Aspir-81] 81 mg Tablet,Delayed Release (Dr/Ec) 81 mg PO QAM RF: 0 cholecalciferol (vitamin D3) 1,000 unit Tablet 1,000 unit PO DAILY RF: 0 The elianaibe's documentation has been prepared under my direction and personally reviewed by me in its entirety. I confirm that the note above accurately reflects all work, treatment, procedures, and medical decision making performed by me.
[2018-08-30 23:09] LABS: Appearance Urine Clear (Clear); Bacteria Urine Automated Negative (Negative); Bilirubin Urine Negative (Negative); Blood Urine Trace (Negative); Color Urine Yellow; Epithelial Cell Urine Auto >30 /lpf (0-5); Glucose Urine UA Negative (Negative); Ketones Urine Negative (Negative); Leukocyte Esterase Urine Negative (Negative); Nitrite Urine Negative (Negative); Protein Urine Negative (Negative); Specific Gravity Urine 1.011 (1.000-1.030); Urobilinogen Urine Negative (Negative)
--- NOTE | 2018-08-31 00:31 | History & Physical Report ---
Date of Service August 31, 2018 Assessment & Plan (1) Dizziness: Ms. Wood is an 82 year old pleasant female with a past medical history of coronary disease s/p NSTEMI in 2017, Takotsubo cardiomyopathy, seizure disorder, hypertension and DM who presented to the emergency department with a 2 day history of dizziness that worsened this afternoon. ED course: 12.5mg PO meclizine, 4mg IV zofran, 1L NS bolus, 6.25mg IV benadryl. -admit to med/surg -pt reports this is similar to an episode that she had in the 1980s -normal neurological exam, CT brain normal. -dizziness already improving - no indication for MRI of brain at this point -EKG in normal sinus rhythm, no evidence for ischemia -continue meclizine 12.5mg BID prn dizziness -continue to monitor -PT/OT evals ordered for tomorrow Left Heel Erythema -left heel appears erythematous, warm to touch and tender -does not appear infected at this point, continue w/barrier creams -if worsening, consider abx for cellulitis Seizure Disorder -continue home phenytoin & phenobarbital -phenytoin & phenobarbital levels checked - both were low CAD s/p NSTEMI in 2017 -continue aspirin and plavix Diabetes Mellitus -not on any medications at home for this -HbA1c 6.1% in 06/2018 Hypercholesterolemia -continue home atorvastatin Hypertension -continue home metoprolol, isosorbide mononitrate and bumetanide GERD -continue home zantac Code status: FULL, as per discussion with patient DVT Prophylaxis: SCDs, anticipate pt will be discharged tomorrow Disposition: admit to med/surg. (2) Diabetes: (3) Hypertension: (4) Seizure: (5) Coronary artery disease: History of Present Illness Primary Care Provider: Jerad Wolfe MD Ms. Wood is an 82 year old pleasant female with a past medical history of coronary disease s/p NSTEMI in 2017, Takotsubo cardiomyopathy, seizure disorder, hypertension and DM who presented to the emergency department with a 2 day history of dizziness that worsened this afternoon. She states that she was in her usual state of health prior to two days ago, although notes some rhinorrhea. She reports that she had a left sided ear ache yesterday, and endorses associated tinnitus. She states the pain and tinnitus have resolved, but she feels like her left ear is full of fluid. She notes that she took a nap in her chair today, and when she awoke, her dizziness was far worse than it had been over the past two days. She states this was associated with nausea and vomiting x2 episodes. She states she called her daughter, who called for an ambulance. She had to crawl to her front door to unlock it because she felt so dizzy upon standing. She defines dizzy as feeling lightheaded and as though her "head is going in circles". Upon the time of my examination, she reports an improvement in her symptoms after having taken the meclizine. She states she is nervous to return home as she lives alone. She states she had a similar episode in the , where she had to be hospitalized for one day. She states that at this time, she was told it was due to fluid in her ears. She denies fever, chills, sinus symptoms. She denies difficulty with gait, and states she ambulates with a walker. She reports she has had a harder time with her vision, and is hoping to see an eye doctor soon. She denies focal weakness in her arms or legs. She has not had any recent travel or tick bites. She has had no recent alcohol or recreational drug use. She has never smoked cigarettes. Allergies Allergy/AdvReac Type Severity Reaction Status Date / Time mivacurium Allergy Intermediate UNKNOWN Verified 08/30/18 22:20 iodine Allergy Mild Verified 08/30/16 23:54 Sulfa (Sulfonamide Allergy Mild ` Verified 08/30/16 23:54 Antibiotics) sulfamethoxazole Allergy Mild Verified 08/30/16 23:54 Home Medications Home Medications Medication Instructions Recorded Confirmed Type aspirin [Aspir-81] 81 mg PO QAM 08/30/18 08/30/18 History atorvastatin 80 mg PO DAILY 08/30/18 08/30/18 History bumetanide 1 mg PO DAILY 08/30/18 08/30/18 History cholecalciferol (vitamin D3) 1,000 unit PO DAILY 08/30/18 08/30/18 History clopidogrel 75 mg PO DAILY 08/30/18 08/30/18 History isosorbide mononitrate 60 mg PO QAM 08/30/18 08/30/18 History metoprolol tartrate 25 mg PO BID 08/30/18 08/30/18 History phenytoin sodium extended 200 mg PO HS 08/30/18 08/30/18 History ranitidine HCl 150 mg PO BID 08/30/18 08/30/18 History Past Med/Surg History Medical History Stomach ulcer (Chronic) Diabetes (Chronic) Diverticulitis (Chronic) Hypertension (Chronic) Seizure (Chronic) Broken heart syndrome Family History Other Family history non-contributory Social History Preferred Language: Persian Communication Ability: Effective Law Office Receptionist Required: No Beliefs That Will Affect Care: None Current Living Situation: Alone Other Information That Helps Us Care for You: No Feels Safe at Home: Yes Safety Concerns: Feels Safe At This Time Smoking Status: Never smoker Hx Alcohol Use: No Hx Substance Use: No Review of Systems Constitutional: no fever, no chills, no fatigue and no anorexia Eyes: + worsening vision; no diplopia Ear, Nose, Mouth, Throat: + ear pain, + tinnitus, + dizziness and + nasal congestion; no sinus pain/pressure Respiratory: no cough and no dyspnea Cardiovascular: no chest pain, no palpitations and no edema Gastrointestinal: + nausea and + vomiting; no abdominal pain and no change in bowel habits Physical Exam Constitutional: WD/WN, vitals as above cooperative and comfortable Eyes: PERRL, conjunctivae normal, anicteric sclerae ENMT: external ear and nose normal, oropharynx normal left TM w/fluid behind it. Does not appear infected Respiratory: normal respiratory effort, lungs clear to auscultation Cardiovascular: RRR, no murmur, no edema Gastrointestinal (Abdomen): Inspection/Auscultation: abdomen normal to inspection Percussion/Palpation: abdomen soft; abdomen nontender, no guarding and abdomen not rigid Skin: left heel w/erythema, warmth and tenderness Neurologic: Cranial Nerves: PERRL and EOM intact bilaterally; + nystagmus 5/5 power in UE and LE Psychiatric: A+Ox3, euthymic affect Results & Data Vital Signs (Past 12 Hours) Vital Signs Temp Pulse Pulse Resp BP BP Pulse Ox 08/30/18 23:31 83 13 08/30/18 23:01 91 H 22 96 08/30/18 22:31 82 15 95 08/30/18 22:15 88 18 184/87 H 95 08/30/18 22:14 80 24 184/87 H 97 08/30/18 22:01 73 08/30/18 21:31 75 14 08/30/18 21:00 75 15 08/30/18 20:57 82 14 08/30/18 20:44 36.5 C 80 18 180/90 H 96 08/30/18 20:40 74 14 180/90 H Supervising Physician Co-Signing Physician Notes Patient seen and examined, chart reviewed, case discussed with Dr. Griggs and I agree with her assessment and plan as above. Briefly, patient is an 82yo C female with history of CAD, Takotsubo, DM, HTN, Sz presenting with seizure, dizziness and ear pain. Meclizine with improvement. Patient with difficult time walking. Had similar episode in requiring hospitalization On exam she is afebrile, hypertensive, otherwise stable Neuro exam intact - no nystagmus Labs and images reviewed Assessment/Plan: suspect vertigo rather than posterior cva -Meclizine -MOnitor left heel for development of cellulitis -PT/OT assessments - appreciate assistance -Remainder of plan as above Resident Activity Tracking Resident Involvement: Resident Care Provided Care Provided: Adult Hospital Medicine
[2018-08-31] MEDS ORDERED: ACETAMINOPHEN 325 MG TAB PO PRN (02:35)
[2018-08-31] MEDS ORDERED: ONDANSETRON INJ 2 MG/ML 2 ML VIAL IV PRN (02:35)
[2018-08-31] MEDS ORDERED: MECLIZINE 12.5 MG TAB PO PRN (02:35)
[2018-08-31] MEDS: PHENobarbital 32.4 MG TAB PO SCH ×2 (09:01→21:45)
[2018-08-31] MEDS: CHOLECALCIFEROL 1,000 UNITS TAB PO SCH (09:01)
[2018-08-31] MEDS: CLOPIDOGREL BISULFATE 75 MG TAB PO SCH (09:02)
[2018-08-31] MEDS: ISOSORBIDE MONO EXTENDED REL 60 MG TABCR PO SCH (09:02)
[2018-08-31] MEDS: METOPROLOL TARTRATE 25 MG TAB PO SCH ×2 (09:02→21:45)
[2018-08-31] MEDS: ATORVASTATIN 40 MG TAB PO SCH (09:03)
[2018-08-31] MEDS: BUMETANIDE 1 MG TAB PO SCH (09:03)
[2018-08-31] MEDS: EUCERIN CR 120 GM JAR EXT SCH ×2 (09:04→21:45)
[2018-08-31] MEDS: ASPIRIN 81 MG ECTAB PO SCH (09:04)
[2018-08-31] MEDS ORDERED: GADOBUTROL 7.5ML VIAL IV PRN (14:11)
--- NOTE | 2018-08-31 14:32 | Magnetic Resonance Report ---
MR brain IAC wo/w con CLINICAL HISTORY: 82 years-old Female presenting with sporadic vertigo for several months, worsening over the last few days, clinical concern for acoustic neuroma. TECHNIQUE: Multisequence, multiplanar MR imaging of the brain was performed before and after the admi nistration of intravenous contrast. Dedicated sequences for evaluation of the internal auditory canal s were also performed. IV contrast: 7 mL of Gadavist. COMPARISON: Noncontrast CT head from 08/30/2018. FINDINGS: Localizer images: Unremarkable. Dedicated evaluation of the internal auditory canals demonstrates normal appearance of the transiting nerves. Normal nerve thickness. No masslike enhancement. Normal signal intensity of inner ear struct ures. Remaining visualized cranial nerves also normal in appearance. Normal midline sagittal structures. Proportional ventricular and sulcal prominence, likely age-relate d parenchymal volume loss. No restricted diffusion or hemorrhage. Brain parenchyma normal in appearan ce with preserved mcgrath-white differentiation. No mass effect or midline shift. No abnormal parenchyma l enhancement. No extra-axial fluid collection. T2 skull base flow voids preserved. Bone marrow signal intensity within the calvarium within normal limits. Bilateral quileute lenses are a bsent. IMPRESSION: 1. No evidence of an internal auditory canal mass to suggest vestibular schwannoma. 2. No acute intracranial pathology. No abnormal enhancement. Electronically signed by: Jerad Barnett M.D. 08/31/2018 2:31 PM
[2018-08-31] MEDS ORDERED: POLYETHYLENE (MIRALAX) 17 GM PACK PO PRN (14:58)
[2018-08-31] MEDS: PHENYTOIN SODIUM ER 100 MG CAP PO SCH (21:45)
[2018-08-31] MEDS: POTASSIUM CHLORIDE 10 MEQ TABCR PO SCH (21:45)
[2018-09-01] MEDS: ATORVASTATIN 40 MG TAB PO SCH (09:51)
[2018-09-01] MEDS: BUMETANIDE 1 MG TAB PO SCH (09:51)
[2018-09-01] MEDS: CHOLECALCIFEROL 1,000 UNITS TAB PO SCH (09:52)
[2018-09-01] MEDS: ISOSORBIDE MONO EXTENDED REL 60 MG TABCR PO SCH (09:52)
[2018-09-01] MEDS: ASPIRIN 81 MG ECTAB PO SCH (09:52)
[2018-09-01] MEDS: CLOPIDOGREL BISULFATE 75 MG TAB PO SCH (09:52)
[2018-09-01] MEDS: METOPROLOL TARTRATE 25 MG TAB PO SCH ×2 (09:52→21:57)
[2018-09-01] MEDS: EUCERIN CR 120 GM JAR EXT SCH ×2 (09:53→21:56)
[2018-09-01] MEDS: POTASSIUM CHLORIDE 10 MEQ TABCR PO SCH ×2 (09:53→21:56)
[2018-09-01] MEDS: PHENobarbital 32.4 MG TAB PO SCH ×2 (09:57→21:57)
[2018-09-01] MEDS ORDERED: LISINOPRIL 10 MG TAB PO SCH (10:45)
[2018-09-01 11:17] LABS: Calcium 8.6 mg/dl (8.5-10.1); Est GFR (African American) 90.4; Potassium 4.1 mmol/L (3.5-5.1)
[2018-09-01] MEDS: PHENYTOIN SODIUM ER 100 MG CAP PO SCH (21:56)
--- NOTE | 2018-09-01 22:55 | Hospitalist Progress Note ---
Date of Service September 01, 2018 Assessment & Plan (1) Dizziness: Ms. Wood is an 82 year old pleasant female with a past medical history of coronary disease s/p NSTEMI in 2017, Takotsubo cardiomyopathy, seizure disorder, hypertension and DM who presented to the emergency department with a 2 day history of dizziness that worsened this afternoon. ED course: 12.5mg PO meclizine, 4mg IV zofran, 1L NS bolus, 6.25mg IV benadryl. -admit to med/surg -pt reports this is similar to an episode that she had in the 1980s -normal neurological exam, CT brain normal. -dizziness already improving - MRI of brain ordered as patient had unilateral hearing loss, tinnnitus, dizziness. MRI was negative for schwanomma. -EKG in normal sinus rhythm, no evidence for ischemia -continue meclizine 12.5mg BID prn dizziness -continue to monitor -PT/OT evals completed. Family will sweet pickle maker patient in AM. Left Heel Erythema -left heel appears erythematous, warm to touch and tender -does not appear infected at this point, continue w/barrier creams -if worsening, consider abx for cellulitis Seizure Disorder -continue home phenytoin & phenobarbital -phenytoin & phenobarbital levels checked - both were low CAD s/p NSTEMI in 2017 -continue aspirin and plavix Diabetes Mellitus -not on any medications at home for this -HbA1c 6.1% in 06/2018 Hypercholesterolemia -continue home atorvastatin Hypertension -continue home metoprolol, isosorbide mononitrate and bumetanide GERD -continue home zantac Code status: FULL, as per discussion with patient DVT Prophylaxis: SCDs, anticipate pt will be discharged tomorrow Spent 40 minutes in management of patient. Discharge in AM. (2) Diabetes: (3) Hypertension: (4) Seizure: (5) Coronary artery disease: Subjective Patient reports feeling better. Patient has no new symptoms at this time. Patient reports her dizziness has subsided. Review of Systems Review of Systems: All systems reviewed & are unremarkable except as noted in HPI & below Physical Exam Physical Exam: Constitutional: WD/WN, vitals as above cooperative and comfortable Eyes: PERRL, conjunctivae normal, anicteric sclerae ENMT: external ear and nose normal, oropharynx normal Respiratory: normal respiratory effort, lungs clear to auscultation Cardiovascular: RRR, no murmur, no edema Gastrointestinal (Abdomen): Inspection/Auscultation: abdomen normal to inspection Percussion/Palpation: abdomen soft; abdomen nontender, no guarding and abdomen not rigid Skin: decreased left heel w/erythema, warmth and tenderness Neurologic: Cranial Nerves: PERRL and EOM intact bilaterally; + nystagmus 5/5 power in UE and LE Psychiatric: A+Ox3, euthymic affect Results & Data Vital Signs (Past 12 Hours) Vital Signs Temp Pulse Resp BP BP Pulse Ox 09/01/18 15:06 36.6 C 67 18 121/67 94 09/01/18 11:32 58 L 148/69 H 120/66
[2018-09-02] MEDS: ATORVASTATIN 40 MG TAB PO SCH (07:52)
[2018-09-02] MEDS: BUMETANIDE 1 MG TAB PO SCH (07:52)
[2018-09-02] MEDS: METOPROLOL TARTRATE 25 MG TAB PO SCH (07:53)
[2018-09-02] MEDS: POTASSIUM CHLORIDE 10 MEQ TABCR PO SCH (07:53)
[2018-09-02] MEDS: ISOSORBIDE MONO EXTENDED REL 60 MG TABCR PO SCH (07:53)
[2018-09-02] MEDS: ASPIRIN 81 MG ECTAB PO SCH (07:53)
[2018-09-02] MEDS: EUCERIN CR 120 GM JAR EXT SCH (07:54)
[2018-09-02] MEDS: PHENobarbital 32.4 MG TAB PO SCH (07:54)
[2018-09-02] MEDS: CLOPIDOGREL BISULFATE 75 MG TAB PO SCH (07:54)
[2018-09-02] MEDS: CHOLECALCIFEROL 1,000 UNITS TAB PO SCH (07:54)
--- NOTE | 2018-09-02 17:39 | Discharge Summary ---
Date of Service September 02, 2018 Admission HPI Per Admitting Provider Ms. Wood is an 82 year old pleasant female with a past medical history of coronary disease s/p NSTEMI in 2017, Takotsubo cardiomyopathy, seizure disorder, hypertension and DM who presented to the emergency department with a 2 day history of dizziness that worsened this afternoon. She states that she was in her usual state of health prior to two days ago, although notes some rhinorrhea. She reports that she had a left sided ear ache yesterday, and endorses associated tinnitus. She states the pain and tinnitus have resolved, but she feels like her left ear is full of fluid. She notes that she took a nap in her chair today, and when she awoke, her dizziness was far worse than it had been over the past two days. She states this was associated with nausea and vomiting x2 episodes. She states she called her daughter, who called for an ambulance. She had to crawl to her front door to unlock it because she felt so dizzy upon standing. She defines dizzy as feeling lightheaded and as though her "head is going in circles". Upon the time of my examination, she reports an improvement in her symptoms after having taken the meclizine. She states she is nervous to return home as she lives alone. She states she had a similar episode in the 1980s, where she had to be hospitalized for one day. She states that at this time, she was told it was due to fluid in her ears. She denies fever, chills, sinus symptoms. She denies difficulty with gait, and states she ambulates with a walker. She reports she has had a harder time with her vision, and is hoping to see an eye doctor soon. She denies focal weakness in her arms or legs. She has not had any recent travel or tick bites. She has had no recent alcohol or recreational drug use. She has never smoked cigarettes. Principal Diagnosis Dizziness NOS Discharge Exam Constitutional WD/WN, vitals as above cooperative and comfortable Eyes PERRL, conjunctivae normal, anicteric sclerae ENMT external ear and nose normal, oropharynx normal Respiratory normal respiratory effort, lungs clear to auscultation Cardiovascular RRR, no murmur, no edema Gastrointestinal (Abdomen) Inspection/Auscultation: abdomen normal to inspection Percussion/Palpation: abdomen soft; abdomen nontender, no guarding and abdomen not rigid Neurologic Cranial Nerves: PERRL and EOM intact bilaterally; + nystagmus Psychiatric A+Ox3, euthymic affect Discharge Data Allergies Allergy/AdvReac Type Severity Reaction Status Date / Time mivacurium Allergy Intermediate UNKNOWN Verified 08/30/18 22:20 iodine Allergy Mild Verified 08/30/16 23:54 Sulfa (Sulfonamide Allergy Mild ` Verified 08/30/16 23:54 Antibiotics) sulfamethoxazole Allergy Mild Verified 08/30/16 23:54 Consultations 08/30/18 23:16 ED Decision to Admit Stat Ordered Studies 08/30/18 21:44 CT head/brain wo con Stat 08/31/18 12:31 MR brain IAC wo/w con Routine Hospital Course (1) Dizziness: -pt reports this is similar to an episode that she had in the 1980s -normal neurological exam, CT brain normal. - MRI was negative for schwanomma. - EKG in normal sinus rhythm, no evidence for ischemia - Continue meclizine 12.5mg BID prn dizziness - Counseled use of Flonase and to see ENT in 1-2 weeks if not improved. By discharge, she was actually having no major issues with dizziness. Seizure Disorder - Continue home phenytoin & phenobarbital - phenytoin & phenobarbital levels checked - both were low CAD s/p NSTEMI in 2017 -continue aspirin and plavix Diabetes Mellitus -not on any medications at home for this -HbA1c 6.1% in 06/2018 Hypercholesterolemia -continue home atorvastatin Hypertension -continue home metoprolol, isosorbide mononitrate and bumetanide GERD -continue home zantac (2) Diabetes: (3) Hypertension: (4) Seizure: (5) Coronary artery disease: Total Time Total Time Spent Total Time Spent (In Minutes): 35 Discharge Plan Discharge Items Patient Disposition: Home - Self-Care Reason For Visit: DIZZINESS Discharge Diagnosis: Dizziness Discharge Goals: Decrease discomfort and Diagnostic testing Activity: Resume your previous activity Non-emergency contact: Primary Care Provider Call non-emergency contact if: you have any medication questions and your symptoms worsen Follow-up/Referrals: Jerad Wolfe MD [Primary Care Provider] - Diet: Heart Healthy Addtl Provider Instructions: If the dizziness returns, please contact our ENT office to evaluation at . Prescriptions: New meclizine 12.5 mg tablet 12.5 mg PO TID PRN (Reason: dizziness) Qty: 30 RF: 0 Continued isosorbide mononitrate 60 mg tablet extended release 24 hr 60 mg PO QAM RF: 0 bumetanide 1 mg tablet 1 mg PO DAILY RF: 0 metoprolol tartrate 25 mg tablet 25 mg PO BID RF: 0 ranitidine HCl 150 mg tablet 150 mg PO BID RF: 0 phenytoin sodium extended 100 mg capsule 200 mg PO HS RF: 0 clopidogrel 75 mg tablet 75 mg PO DAILY RF: 0 atorvastatin 80 mg tablet 80 mg PO DAILY RF: 0 aspirin [Aspir-81] 81 mg Tablet,Delayed Release (Dr/Ec) 81 mg PO QAM RF: 0 cholecalciferol (vitamin D3) 1,000 unit Tablet 1,000 unit PO DAILY RF: 0 Stand-Alone Forms: [facility] Discharge Orders: Discharge Order (Routine); Ordered 09/02/18 Ordered By: Ryan Green Admission Data Admit Date/Time: 08/31/18 01:55 Attending Provider: Ryan Green Admit Provider: Marcia Griggs Primary Care Provider: Jerad Wolfe Other Providers: Ryan Green Service: Medical Other Interventions: Discharge Summary Assessment (RN) Last Done: 09/02/18 10:08 DC Date/Time DO NOT enter until pt leaves facility: 09/02/18 10:26
== END 2018-09-02 10:26 | disposition home or self-care (01) ==
LOC: 4E 20:38 → ED 20:38 → SUATTDRO 08-31 01:55 → 4E 08-31 02:22

== ENCOUNTER 2020-12-27 16:53 | Inpatient (IN) ==
--- NOTE | 2020-12-27 17:15 | Emergency Department Note ---
Impression & Plan Vertigo, Stroke-like symptoms, Acute UTI (urinary tract infection) ED Provider Note NAME: SCOTT ARIAS AGE: 85 SEX: F : 1935 ARRIVES VIA: Ambulance INFORMANT: Patient, ED PROVIDER(S): Tio Butcher DO CHIEF COMPLAINT: dizziness HPI: the patient is an 85-year-old female who presented to the emergency department for an evaluation of dizziness. The patient states that she was at home this morning at approximately 10:50 AM when she started noticing she was very weak. The patient states she has whole body numbness and weakness. She states that she has fullness in her face. She also states that intermittently she has been experiencing double vision. She states that she has a history of vertigo in the past but this appears somewhat worsened compared to her baseline. She denies having any vomiting at this time. She did have nausea earlier. The patient denies having any recent fever or falls. She denies having any chest pain or difficulty breathing. She denies having any lower extremity swelling. She does have a history of seizure disorder. She states that she has been compliant with her usual medications. She lives at home alone. She did hit her eventblimp alert button and presented via ambulance. The patient is not your family doctor today. ROS: See above HPI for pertinent positives & negatives. A total of 10 systems reviewed and were otherwise negative. PAST MEDICAL HISTORY: See Below PAST SURGICAL HISTORY: See Below FAMILY HISTORY: See Below SOCIAL HISTORY: See Below HOME MEDICATIONS: See Below ALLERGIES: See Below VITALS: See Below PHYSICAL EXAMINATION: GENERAL: Patient is awake alert in no acute distress patient is resting comfortably and showing no signs of anxiety EYES: The conjunctivae are clear. The pupils are round and reactive. No nystagmus was elicited. EARS, NOSE, MOUTH AND THROAT: The nose is without any evidence of any deformity. NECK: The neck is nontender and supple. RESPIRATORY: Normal respiratory effort is noted there is no evidence of wheezing rhonchi or rales CARDIOVASCULAR: Regular rate and rhythm noted there no murmurs rubs or gallops normal S1 normal S2. GASTROINTESTINAL: The abdomen is soft. Abdomen is nontender. MUSCULOSKELETAL/EXTREMITIES: There is no evidence of gross deformity full range of motion is noted in the hips and shoulders. SKIN: There is no obvious evidence of any rash. There are no petechiae, pallor or cyanosis noted. NEUROLOGIC: Patient is awake alert and oriented x3 strength is symmetric patellar reflexes are 1+ bilaterally. Upon sitting up the patient became very vertiginous. The patient is able to hold each leg off of the bed for less than five seconds. Strength was diminished but symmetric. MEDICAL DECISION MAKING: the patient is an 85-year-old female who presented to the emergency department for an evaluation of stroke like symptoms. The patient was describing vertigo symptoms. She also described diplopia as well as ataxia. I discussed the patient's laboratory and radiographic studies with her. We attempted to ambulate the patient but she had very significant instability on her feet. It is possible her presentation could be consistent with vertebral [place] insufficiency or possibly a posterior circulation stroke. For this reason I discussed her case with the on-call [facility] hospitalist. I discussed the patient's condition with her. The patient was reevaluated multiple times. She was also treated with medication for her blood pressure. Triage Nursing notes reviewed. Prior medical records reviewed Vital Signs: reviewed and remarkable for no significant abnormalities Differential diagnosis: Benign positional vertigo, dehydration, hypovolemia, anemia, tumor, infection, hypoglycemia, electrolyte abnormalities, cardiac sources, intracerebral event, toxicologic, neurologic, as well as other pathologies. ER treatment provided: See below Diagnostics interpreted by me: ECG: EKG was obtained in the emergency department. My interpretation is normal sinus rhythm but 86 bpm. There was no activity. High lateral T-wave versions were noted. Poor progression was noted. This was compared to a tracing from November 25, 2018. No significant changes were noted. Cardiac Monitoring: An order was placed for continuous cardiac monitoring. The monitor shows a rate of 58 bpm with sinus rhythm. Laboratory studies: As stated above and show below. Imaging studies: See below Consultation(s): I discussed this case with Lenin who was covering for [place] [facility]ist group. 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 Coppola, no stents History of cholecystectomy History of esophagogastroduodenoscopy (EGD) History of open reduction and internal fixation (ORIF) procedure right ankle--hardware in place History of shoulder surgery left History of tonsillectomy History of tooth extraction all teeth History of total hysterectomy with bilateral salpingo-oophorectomy (BSO) Family History Brother Family history of diabetes mellitus Sister Family history of diabetes mellitus Aunt Family history of diabetes mellitus Uncle Family history of diabetes mellitus Myocardial infarction Mother Heart disease Father Heart disease Myocardial infarction Other Arthritis No family history of adverse response to anesthesia Denies family history of Ovarian cancer Prostate cancer Breast cancer Lung cancer Cancer Social History Smoking Status: Former smoker Second Hand Exposure: Yes (in childhood); Hx Alcohol Use: No Hx Substance Use: No Preferred Language: Eritrean Communication Ability: Effective Cutter Inspector Required: No Beliefs That Will Affect Care: None marital status: / Current Living Situation: Alone current occupational status: retired How many Children do You have: 8 Feels Safe at Home: Yes caffeine: Yes Dental Care, Regularly: No Physical Activity Frequency: Does not Exercise Seatbelt Use: always Sunscreen Use: No Assistive Devices: Denture - Upper, Denture - Lower, Glasses and Walker Allergies Allergies Allergy/AdvReac Type Severity Reaction Status Date / Time iodine Allergy Intermediate "makes me Verified 12/27/20 18:31 almost pass out" azithromycin Allergy Unknown Unknown Verified 12/27/20 18:31 simvastatin [From Zocor] Allergy Unknown Unknown Verified 12/27/20 18:31 Sulfa (Sulfonamide Allergy Unknown Unknown Verified 12/27/20 18:31 Antibiotics) sulfamethoxazole Allergy Unknown Unknown Verified 12/27/20 18:31 Home Meds Home Medications Medication Instructions Recorded Confirmed acetaminophen 650 mg 650 mg PO Q12H PRN 09/14/18 12/27/20 tablet,extended release (Tylenol Arthritis Pain) cyanocobalamin (vitamin B-12) 1,000 mcg PO QAM 12/09/19 12/27/20 1,000 mcg tablet (Vitamin B-12) polyethylene glycol 3350 17 gram 17 g PO DAILY PRN 11/09/20 12/27/20 oral powder packet (Miralax) phenytoin sodium extended 100 mg 200 mg PO HS 12/27/20 12/27/20 capsule sennosides 15 mg tablet (Ex-Lax 15 mg PO DAILY PRN 12/27/20 12/27/20 (sennosides)) Previous Rx's Medication Instructions Recorded atorvastatin 80 mg tablet 80 mg PO QAM #90 tab 10/14/20 bumetanide 1 mg tablet 1 mg PO DAILY #90 tab 10/14/20 clopidogrel 75 mg tablet 75 mg PO DAILY #90 tab 10/14/20 isosorbide mononitrate 60 mg 60 mg PO QAM #90 tab 10/14/20 tablet,extended release 24 hr metoprolol tartrate 25 mg tablet 25 mg PO BID #180 tab 10/14/20 famotidine 20 mg tablet 20 mg PO BID #180 tab 10/25/20 lancets 33 gauge (OneTouch Delica #100 ea 10/25/20 Lancets) phenobarbital 16.2 mg tablet 32.4 mg PO BID #360 tab 10/27/20 blood sugar diagnostic #200 ea 11/22/20 Results & Data (ED) Vital Signs Vital Signs - 24 hr 12/27/20 17:14 12/27/20 17:16 12/27/20 17:30 Temperature 36.7 C Temperature Source Oral Pulse Rate 80 83 78 Respiratory Rate 16 16 15 Respiratory Effort / Characteristics Non-Labored Spontaneous Respiratory Depth Normal Blood Pressure 215/89 H 215/89 H 198/108 H Blood Pressure Mean 131 131 138 Blood Pressure Position Lying Pulse Oximetry 98 Oxygen Delivery Method Room Air Sepsis Recent Fever Within 48 Hours No Sepsis New/Unexplained Change in Mental Status No Sepsis Action Taken by Nursing No Action Required 12/27/20 18:01 12/27/20 18:30 12/27/20 19:00 Temperature Temperature Source Pulse Rate 73 71 73 Respiratory Rate 16 14 23 Respiratory Effort / Characteristics Respiratory Depth Blood Pressure 200/98 H Blood Pressure Mean 132 Blood Pressure Position Pulse Oximetry Oxygen Delivery Method Sepsis Recent Fever Within 48 Hours Sepsis New/Unexplained Change in Mental Status Sepsis Action Taken by Nursing 12/27/20 22:00 12/27/20 22:30 12/27/20 23:30 Temperature Temperature Source Pulse Rate 61 59 L 58 L Respiratory Rate 13 14 12 Respiratory Effort / Characteristics Respiratory Depth Blood Pressure 173/73 H 139/73 139/68 Blood Pressure Mean 106 95 91 Blood Pressure Position Pulse Oximetry Oxygen Delivery Method Sepsis Recent Fever Within 48 Hours Sepsis New/Unexplained Change in Mental Status Sepsis Action Taken by Nursing 12/28/20 00:00 Temperature Temperature Source Pulse Rate 58 L Respiratory Rate 11 L Respiratory Effort / Characteristics Respiratory Depth Blood Pressure 125/58 L Blood Pressure Mean 80 Blood Pressure Position Pulse Oximetry Oxygen Delivery Method Sepsis Recent Fever Within 48 Hours Sepsis New/Unexplained Change in Mental Status Sepsis Action Taken by Care Home Medications Current Medication List: was personally reviewed by me Laboratory Data Attestation: I reviewed the patient's lab results. Result diagrams: 12/27/20 17:48 12/27/20 17:48 Lab Results 12/27/20 12/27/20 12/27/20 Range/Units 17:48 17:48 17:48 WBC 7.14 (4.8-10.8) K/uL RBC 4.28 (4.2-5.4) M/uL Hgb 14.2 (12.0-16.0) g/dL Hct 40.7 (37-47) % MCV 95.1 (80-100) fL MCH 33.2 (25-34) pg MCHC 34.9 (32-36) g/dL RDW Std Deviation 46.0 (36.4-46.3) fL RDW Coeff of More 13.2 (11.5-14.5) % Plt Count 301 (130-400) K/uL MPV 9.0 (7.4-10.4) fL Immature Gran % (Auto) 0.1 % Neut % (Auto) 67.6 % Lymph % (Auto) 16.7 % [place] % (Auto) 8.0 % Eos % (Auto) 7.0 % Baso % (Auto) 0.6 % Neut # (Auto) 4.83 (1.4-6.5) K/uL Lymph # (Auto) 1.19 L (1.2-3.4) K/uL [place] # (Auto) 0.57 (0.11-0.59) K/uL Eos # (Auto) 0.50 (0-0.5) K/uL Baso # (Auto) 0.04 (0-0.2) K/uL Immature Gran # (Auto) 0.01 (0.00-0.02) K/uL PT 10.4 (9.0-12.0) Seconds INR 1.0 (0.9-1.1) APTT 25.3 (21.0-31.0) Seconds PTT Ratio 1.0 Sodium (136-145) mmol/L Potassium (3.5-5.1) mmol/L Chloride (98-107) mmol/L Carbon Dioxide (21-32) mmol/L Anion Gap (3-11) BUN (7-18) mg/dl Creatinine (0.6-1.2) mg/dl Est Cr Clr Drug Dosing ml/min Est GFR ( Amer) ml/min Est GFR (Non-Af Amer) ml/min BUN/Creatinine Ratio (10-20) Glucose (70-99) mg/dl Calcium (8.5-10.1) mg/dl Magnesium (1.8-2.4) mg/dl Total Bilirubin (0.2-1) mg/dl AST (15-37) U/L ALT (12-78) U/L Alkaline Phosphatase (45-117) U/L Troponin I (0-0.045) ng/ml Total Protein (6.4-8.2) gm/dl Albumin (3.4-5.0) gm/dl Globulin (2.5-4.0) gm/dl Albumin/Globulin Ratio (0.9-2) Urine Color Urine Appearance (Clear) Urine pH (4.5-7.5) Ur Specific [place] (1.000-1.030) Urine Protein (Negative) Urine Glucose (UA) (Negative) Urine Ketones (Negative) Urine Blood (Negative) Urine Nitrite (Negative) Urine Bilirubin (Negative) Urine Urobilinogen (Negative) Ur Leukocyte Esterase (Negative) Urine WBC (Auto) (0-5) /hpf Urine RBC (Auto) (0-4) /hpf U Hyaline Cast (Auto) (0-5) /lpf U Epithel Cells (Auto) (0-5) /lpf Urine Bacteria (Auto) (Negative) Phenytoin 7.2 L (10-20) mcg/ml Phenobarbital 13.6 L (15-40) mcg/mL COVID-19 Eval Order SARS-CoV-2 (PCR) (Negative) 12/27/20 12/27/20 12/27/20 Range/Units 17:48 18:20 Unknown WBC (4.8-10.8) K/uL RBC (4.2-5.4) M/uL Hgb (12.0-16.0) g/dL Hct (37-47) % MCV (80-100) fL MCH (25-34) pg MCHC (32-36) g/dL RDW Std Deviation (36.4-46.3) fL RDW Coeff of More (11.5-14.5) % Plt Count (130-400) K/uL MPV (7.4-10.4) fL Immature Gran % (Auto) % Neut % (Auto) % Lymph % (Auto) % [place] % (Auto) % Eos % (Auto) % Baso % (Auto) % Neut # (Auto) (1.4-6.5) K/uL Lymph # (Auto) (1.2-3.4) K/uL [place] # (Auto) (0.11-0.59) K/uL Eos # (Auto) (0-0.5) K/uL Baso # (Auto) (0-0.2) K/uL Immature Gran # (Auto) (0.00-0.02) K/uL PT (9.0-12.0) Seconds INR (0.9-1.1) APTT (21.0-31.0) Seconds PTT Ratio Sodium 128 L (136-145) mmol/L Potassium 3.6 (3.5-5.1) mmol/L Chloride 96 L (98-107) mmol/L Carbon Dioxide 28 (21-32) mmol/L Anion Gap 4.0 (3-11) BUN 13 (7-18) mg/dl Creatinine 0.57 L (0.6-1.2) mg/dl Est Cr Clr Drug Dosing 60.1 ml/min Est GFR ( Amer) 98.0 ml/min Est GFR (Non-Af Amer) 84.5 ml/min BUN/Creatinine Ratio 22.4 H (10-20) Glucose 116 H (70-99) mg/dl Calcium 9.1 (8.5-10.1) mg/dl Magnesium 2.2 (1.8-2.4) mg/dl Total Bilirubin 0.3 (0.2-1) mg/dl AST 25 (15-37) U/L ALT 27 (12-78) U/L Alkaline Phosphatase 47 (45-117) U/L Troponin I < 0.015 (0-0.045) ng/ml Total Protein 8.0 (6.4-8.2) gm/dl Albumin 3.7 (3.4-5.0) gm/dl Globulin 4.3 H (2.5-4.0) gm/dl Albumin/Globulin Ratio 0.9 (0.9-2) Urine Color Yellow Urine Appearance Clear (Clear) Urine pH 7.5 (4.5-7.5) Ur Specific [place] 1.006 (1.000-1.030) Urine Protein Negative (Negative) Urine Glucose (UA) Negative (Negative) Urine Ketones Negative (Negative) Urine Blood Trace H (Negative) Urine Nitrite Negative (Negative) Urine Bilirubin Negative (Negative) Urine Urobilinogen Negative (Negative) Ur Leukocyte Esterase 1+ H (Negative) Urine WBC (Auto) 5-10 H (0-5) /hpf Urine RBC (Auto) 0-4 (0-4) /hpf U Hyaline Cast (Auto) 0 (0-5) /lpf U Epithel Cells (Auto) 10-20 H (0-5) /lpf Urine Bacteria (Auto) 2+ H (Negative) Phenytoin (10-20) mcg/ml Phenobarbital (15-40) mcg/mL COVID-19 Eval Order Covid19 at [facility] SARS-CoV-2 (PCR) (Negative) 12/27/20 Range/Units Unknown WBC (4.8-10.8) K/uL RBC (4.2-5.4) M/uL Hgb (12.0-16.0) g/dL Hct (37-47) % MCV (80-100) fL MCH (25-34) pg MCHC (32-36) g/dL RDW Std Deviation (36.4-46.3) fL RDW Coeff of More (11.5-14.5) % Plt Count (130-400) K/uL MPV (7.4-10.4) fL Immature Gran % (Auto) % Neut % (Auto) % Lymph % (Auto) % [place] % (Auto) % Eos % (Auto) % Baso % (Auto) % Neut # (Auto) (1.4-6.5) K/uL Lymph # (Auto) (1.2-3.4) K/uL [place] # (Auto) (0.11-0.59) K/uL Eos # (Auto) (0-0.5) K/uL Baso # (Auto) (0-0.2) K/uL Immature Gran # (Auto) (0.00-0.02) K/uL PT (9.0-12.0) Seconds INR (0.9-1.1) APTT (21.0-31.0) Seconds PTT Ratio Sodium (136-145) mmol/L Potassium (3.5-5.1) mmol/L Chloride (98-107) mmol/L Carbon Dioxide (21-32) mmol/L Anion Gap (3-11) BUN (7-18) mg/dl Creatinine (0.6-1.2) mg/dl Est Cr Clr Drug Dosing ml/min Est GFR ( Amer) ml/min Est GFR (Non-Af Amer) ml/min BUN/Creatinine Ratio (10-20) Glucose (70-99) mg/dl Calcium (8.5-10.1) mg/dl Magnesium (1.8-2.4) mg/dl Total Bilirubin (0.2-1) mg/dl AST (15-37) U/L ALT (12-78) U/L Alkaline Phosphatase (45-117) U/L Troponin I (0-0.045) ng/ml Total Protein (6.4-8.2) gm/dl Albumin (3.4-5.0) gm/dl Globulin (2.5-4.0) gm/dl Albumin/Globulin Ratio (0.9-2) Urine Color Urine Appearance (Clear) Urine pH (4.5-7.5) Ur Specific [place] (1.000-1.030) Urine Protein (Negative) Urine Glucose (UA) (Negative) Urine Ketones (Negative) Urine Blood (Negative) Urine Nitrite (Negative) Urine Bilirubin (Negative) Urine Urobilinogen (Negative) Ur Leukocyte Esterase (Negative) Urine WBC (Auto) (0-5) /hpf Urine RBC (Auto) (0-4) /hpf U Hyaline Cast (Auto) (0-5) /lpf U Epithel Cells (Auto) (0-5) /lpf Urine Bacteria (Auto) (Negative) Phenytoin (10-20) mcg/ml Phenobarbital (15-40) mcg/mL COVID-19 Eval Order SARS-CoV-2 (PCR) NEGATIVE (Negative) Administered Medications Lactated Ringer's (Lr) 1,000 mls @ 90 mls/hr IV .[id number] STA Stop: 12/28/20 09:25 Last Admin: 12/27/20 22:39 Dose: 90 mls/hr Documented by: [id number] Discontinued Medications Aspirin (Aspirin Chew 324 Mg) 324 mg PO NOW STA Stop: 12/27/20 21:34 Last Admin: 12/27/20 21:55 Dose: 324 mg Documented by: [id number] Diphenhydramine HCl (Diphenhydramine 50 Mg/Ml Vial) 25 mg IV NOW STA Stop: 12/27/20 18:55 Last Admin: 12/27/20 19:00 Dose: 25 mg Documented by: [id number] Ceftriaxone Sodium (Rocephin) 1,000 mg in 50 mls @ 100 mls/hr IV NOW STA Stop: 12/27/20 19:36 Last Infusion: 12/27/20 19:55 Dose: 0 mls/hr Documented by: [id number] Admin: 12/27/20 19:21 Dose: 100 mls/hr Documented by: [id number] Ioversol (Optiray 320 125ml) 110 ml IV ONCE ONE Stop: 12/27/20 19:28 Last Admin: 12/27/20 19:27 Dose: 110 ml Documented by: [id number] Methylprednisolone (Methylprednisolone 125 Mg/2 Ml Vial) 125 mg IV NOW STA Stop: 12/27/20 18:55 Last Admin: 12/27/20 19:00 Dose: 125 mg Documented by: [id number] Metoprolol Tartrate (Metoprolol Tartrate 50 Mg Tab) 25 mg PO NOW STA Stop: 12/27/20 19:46 Last Admin: 12/27/20 20:20 Dose: 25 mg Documented by: [id number] Imaging Data Radiologist's Impression: Chest X-Ray 12/27/20 17:07 XR chest 1V portable CLINICAL HISTORY: Stroke Like Symptoms COMPARISON STUDY: Chest radiograph November 25, 2018. FINDINGS: Lung volumes are normal. Lungs are clear. There is no pneumothorax or pleural effusion. Cardiac size is normal. Upper mediastinal widening is unchanged. There is no evidence for pulmonary edema. There are postoperative findings within the left shoulder. IMPRESSION: No acute cardiopulmonary findings. No change in appearance of the chest. ACT 112: Negative or not required by law. Electronically signed by: Blake Mendenhall M.D. 12/27/2020 5:[address] 12/27/20 17:07 CT OF THE HEAD WITHOUT CONTRAST CLINICAL HISTORY: Stroke Like Symptoms COMPARISON STUDY: MRI of the brain March 2018. Head CT September 14, 2018. CT DOSE: 951.04 mGy.cm TECHNIQUE: Helical axial images of the head were obtained without IV contrast. Automated exposure control was utilized for the study. A dose lowering technique was utilized adhering to the principles of ALARA. FINDINGS: No acute intracranial hemorrhage, midline shift or mass effect is present. The ventricular system is unremarkable. The basal cisterns are patent. 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 No extra-axial collections are present. There are no findings to suggest acute dural sinus thrombosis or acute territorial infarct. No significant calvarial abnormalities are present. Visualized portions of the sinuses and mastoid air cells are clear. IMPRESSION: No acute intracranial findings. No change in appearance of the brain. ACT 112: Negative or not required by law. Electronically signed by: Blake Mendenhall M.D. 12/27/2020 7:43 PM Head CTA 12/27/20 17:07 CTA ANGIOGRAPHY OF THE HEAD CLINICAL HISTORY: Stroke Like Symptoms COMPARISON STUDY: MRI of the brain August 31, 2018. Head CT August 30, 2018. TECHNIQUE: Patient was premedicated for IV allergy as per the protocol. Helical axial images of the head were obtained following uneventful intravenous administration of 110 cc of Optiray. Sagittal and coronal reconstructions were viewed as well as maximal intensity projections on an independent 3-D workstation. Automated exposure control was utilized for the study. A dose lowering technique was utilized adhering to the principles of ALARA. FINDINGS: No acute intracranial hemorrhage, midline shift or mass effect is present. Ventricular system is unremarkable. Basal cisterns are patent. There are no extraaxial collections. There is moderate calcified atherosclerotic plaque within bilateral cavernous carotids. There is no intracranial aneurysm. No central vessel occlusion is noted. Right vertebral artery is dominant. Posterior circulation is intact. There is no dissection within the intracranial vessels. There is persistence of the right posterior cerebral artery which is patent. Major dural sinuses are patent. IMPRESSION: 1. No central vessel occlusion. No intracranial aneurysm. 2. Moderate calcified atherosclerotic plaque within bilateral cavernous carotids. ACT 112: Negative or not required by law. Electronically signed by: Blake Mendenhall M.D. 12/27/2020 7:55 PM Neck CTA 12/27/20 17:07 CT ANGIOGRAPHY OF THE NECK WITH CONTRAST CLINICAL HISTORY: Stroke Like Symptoms COMPARISON STUDY: No previous studies for comparison. Technique: Patient was premedicated for IV dye allergy as per ER protocol. CT angiography of the carotid and vertebral arteries was obtained using Optiray and 3D reconstruction on an independent workstation. NASCET criteria was utilized. Automated exposure control was utilized for the study. A dose lowering technique was utilized adhering to the principles of ALARA. Findings: There is moderate stenosis at the origin of the right vertebral artery. The right vertebral artery is dominant. There is no dissection within the major vessels of the neck. Moderate calcified atherosclerotic plaque within proximal bilateral internal carotid arteries is noted. There is no significant stenosis within the bilateral common carotid or cervical internal carotid arteries. The CTA of the head will be reported separately. Lung apices are unremarkable. Is no cervical lymphadenopathy. No acute cervical spine fracture is present. IMPRESSION: 1. Moderate calcified atherosclerotic plaque within the proximal bilateral internal carotid arteries without significant stenosis. 2. 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 3. No dissection within the major vessels of the neck. ACT 112: Negative or not required by law. Electronically signed by: Blake Mendenhall M.D. 12/27/2020 7:50 PM Discharge Plan Visit Data Chief Complaint: Vertigo ED Provider: Tio Butcher Discharge Problem: Vertigo, Stroke-like symptoms, Acute UTI (urinary tract infection) Patient Disposition: Admitted As Inpatient Forms Stand Alone Forms: [facility] Prescriptions Prescriptions: No Action atorvastatin 80 mg tablet 80 mg PO QAM Qty: 90 RF: 3 bumetanide 1 mg tablet 1 mg PO DAILY Qty: 90 RF: 3 clopidogrel 75 mg tablet 75 mg PO DAILY Qty: 90 RF: 3 isosorbide mononitrate 60 mg tablet extended release 24 hr 60 mg PO QAM Qty: 90 RF: 3 metoprolol tartrate 25 mg tablet 25 mg PO BID Qty: 180 RF: 3 famotidine 20 mg tablet 20 mg PO BID Qty: 180 RF: 3 (DME) lancets [OneTouch Delica Lancets] 33 gauge misc See Dose Instructions .ROUTE .MEDSUPPLY Qty: 100 RF: 5 phenobarbital 16.2 mg tablet 32.4 mg PO BID Qty: 360 RF: 1 (DME) blood sugar diagnostic Strip See Dose Instructions .ROUTE .MEDSUPPLY Qty: 200 RF: 0 polyethylene glycol 3350 [Miralax] 17 gram powder in packet 17 g PO DAILY PRN (Reason: Constipation) RF: 0 acetaminophen [Tylenol Arthritis Pain] 650 mg Tablet Extended Release 650 mg PO Q12H PRN (Reason: Pain) RF: 0 cyanocobalamin (vitamin B-12) [Vitamin B-12] 1,000 mcg Tablet 1,000 mcg PO QAM RF: 0 Ex-Lax (sennosides) 15 mg Tablet 15 mg PO DAILY PRN (Reason: Constipation) RF: 0 phenytoin sodium extended 100 mg capsule 200 mg PO HS RF: 0 Referrals Referrals: Jerad Wolfe MD [Primary Care Provider] -
--- NOTE | 2020-12-27 17:23 | XRay Report ---
XR chest 1V portable CLINICAL HISTORY: Stroke Like Symptoms COMPARISON STUDY: Chest radiograph November 25, 2018. FINDINGS: Lung volumes are normal. Lungs are clear. There is no pneumothorax or pleural effusion. Car diac size is normal. Upper mediastinal widening is unchanged. There is no evidence for pulmonary bassem a. There are postoperative findings within the left shoulder. IMPRESSION: No acute cardiopulmonary findings. No change in appearance of the chest. ACT 112: Negative or not required by law. Electronically signed by: Blake Mendenhall M.D. 12/27/2020 5:22 PM
[2020-12-27 17:58] LABS: Basophils # (auto) 0.04 K/uL (0-0.2); Basophils % (auto) 0.6 %; Hematocrit (blood only) 40.7 % (37-47); Hemoglobin 14.2 g/dL (12.0-16.0); Immature Granulocytes # (auto) 0.01 K/uL (0.00-0.02); Immature Granulocytes % (auto) 0.1 %; Lymphocytes # (auto) 1.19 K/uL (1.2-3.4); Lymphocytes % (auto) 16.7 %; Mean Corpuscular Hemoglobin 33.2 pg (25-34); Mean Corpuscular Hgb Conc 34.9 g/dL (32-36); Mean Corpuscular Volume 95.1 fL (80-100); Monocytes # (auto) 0.57 K/uL (0.11-0.59); Neutrophils # (auto) 4.83 K/uL (1.4-6.5); Neutrophils % (auto) 67.6 %; Platelet Count 301 K/uL (130-400); RDW Coefficient of Variation 13.2 % (11.5-14.5); Red Blood Count 4.28 M/uL (4.2-5.4); White Blood Count 7.14 K/uL (4.8-10.8)
[2020-12-27 18:10] LABS: Partial Thromboplastin Time 25.3 Seconds (21.0-31.0); Prothrombin Time 10.4 Seconds (9.0-12.0)
[2020-12-27 18:23] LABS: Alanine Aminotransferase 27 U/L (12-78); Albumin Level 3.7 gm/dl (3.4-5.0); Aspartate Aminotransferase 25 U/L (15-37); BUN Creatinine Ratio 22.4 (10-20); Blood Urea Nitrogen 13 mg/dl (7-18); Calcium 9.1 mg/dl (8.5-10.1); Carbon Dioxide 28 mmol/L (21-32); Chloride 96 mmol/L (98-107); Creatinine Clr Calc Pharmacy 60.1 ml/min; Est GFR (Non-African American) 84.5 ml/min; Glucose 116 mg/dl (70-99); Magnesium 2.2 mg/dl (1.8-2.4); Potassium 3.6 mmol/L (3.5-5.1); Sodium 128 mmol/L (136-145)
[2020-12-27 18:24] LABS: Phenytoin (Dilantin) 7.2 mcg/ml (10-20)
[2020-12-27 18:28] LABS: Albumin Globulin Ratio 0.9 (0.9-2); Alkaline Phosphatase 47 U/L (45-117); Bilirubin,Total 0.3 mg/dl (0.2-1); Globulin 4.3 gm/dl (2.5-4.0); Troponin I < 0.015 ng/ml (0-0.045)
[2020-12-27 18:43] LABS: Appearance Urine Clear (Clear); Bacteria Urine Automated 2+ (Negative); Bilirubin Urine Negative (Negative); Blood Urine Trace (Negative); Cast Urine Automated 0 /lpf (0-5); Color Urine Yellow; Glucose Urine UA Negative (Negative); Ketones Urine Negative (Negative); Leukocyte Esterase Urine 1+ (Negative); Nitrite Urine Negative (Negative); Protein Urine Negative (Negative); RBC Urine Automated 0-4 /hpf (0-4); Specific Gravity Urine 1.006 (1.000-1.030); Urobilinogen Urine Negative (Negative); pH Urine 7.5 (4.5-7.5)
[2020-12-27] MEDS ORDERED: methylPREDNISolone 125 MG/2 ML VIAL IV STA (18:54)
[2020-12-27] MEDS ORDERED: diphenhydrAMINE 50 MG/ML VIAL IV STA (18:54)
[2020-12-27] MEDS ORDERED: cefTRIAXone SODIUM 1,000 MG/50 ML BAG IV STA (19:07)
[2020-12-27] MEDS ORDERED: OPTIRAY 320 125ml IV ONE (19:27)
--- NOTE | 2020-12-27 19:44 | CT Scan Report ---
CT OF THE HEAD WITHOUT CONTRAST CLINICAL HISTORY: Stroke Like Symptoms COMPARISON STUDY: MRI of the brain March 2018. Head CT September 14, 2018. CT DOSE: 951.04 mGy.cm TECHNIQUE: Helical axial images of the head were obtained without IV contrast. Automated exposure con trol was utilized for the study. A dose lowering technique was utilized adhering to the principles o f ALARA. FINDINGS: No acute intracranial hemorrhage, midline shift or mass effect is present. The ventricular system is unremarkable. The basal cisterns are patent. 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 No extra-axial collections are present. There are no findings to suggest acute dural sinus thrombosis or acute territorial infarct. No significant calvarial abnorm alities are present. Visualized portions of the sinuses and mastoid air cells are clear. IMPRESSION: No acute intracranial findings. No change in appearance of the brain. ACT 112: Negative or not required by law. Electronically signed by: Blake Mendenhall M.D. 12/27/2020 7:43 PM
[2020-12-27] MEDS ORDERED: METOPROLOL TARTRATE 50 MG TAB PO STA (19:45)
--- NOTE | 2020-12-27 19:51 | CT Scan Report ---
CT ANGIOGRAPHY OF THE NECK WITH CONTRAST CLINICAL HISTORY: Stroke Like Symptoms COMPARISON STUDY: No previous studies for comparison. Technique: Patient was premedicated for IV dye allergy as per ER protocol. CT angiography of the osborne tid and vertebral arteries was obtained using Optiray and 3D reconstruction on an independent worksta tion. NASCET criteria was utilized. Automated exposure control was utilized for the study. A dose l owering technique was utilized adhering to the principles of ALARA. Findings: There is moderate stenosis at the origin of the right vertebral artery. The right vertebral artery is dominant. There is no dissection within the major vessels of the neck. Moderate calcified atherosclerotic plaque within proximal bilateral internal carotid arteries is noted. There is no sign ificant stenosis within the bilateral common carotid or cervical internal carotid arteries. The CTA o f the head will be reported separately. Lung apices are unremarkable. Is no cervical lymphadenopathy. No acute cervical spine fracture is present. IMPRESSION: 1. Moderate calcified atherosclerotic plaque within the proximal bilateral internal carotid arteries without significant stenosis. 2. 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 3. No dissection within the major vessels of the neck. ACT 112: Negative or not required by law. Electronically signed by: Blake Mendenhall M.D. 12/27/2020 7:50 PM
--- NOTE | 2020-12-27 19:56 | CT Scan Report ---
CTA ANGIOGRAPHY OF THE HEAD CLINICAL HISTORY: Stroke Like Symptoms COMPARISON STUDY: MRI of the brain August 31, 2018. Head CT August 30, 2018. TECHNIQUE: Patient was premedicated for IV allergy as per the protocol. Helical axial images of the h ead were obtained following uneventful intravenous administration of 110 cc of Optiray. Sagittal and coronal reconstructions were viewed as well as maximal intensity projections on an independent 3-D wo rkstation. Automated exposure control was utilized for the study. A dose lowering technique was uti lized adhering to the principles of ALARA. FINDINGS: No acute intracranial hemorrhage, midline shift or mass effect is present. Ventricular syst em is unremarkable. Basal cisterns are patent. There are no extraaxial collections. There is moderate calcified atherosclerotic plaque within bilateral cavernous carotids. There is no intracranial aneur ysm. No central vessel occlusion is noted. Right vertebral artery is dominant. Posterior circulation is intact. There is no dissection within the intracranial vessels. There is persistence of the right posterior cerebral artery which is patent. Major dural sinuses are patent. IMPRESSION: 1. No central vessel occlusion. No intracranial aneurysm. 2. Moderate calcified atherosclerotic plaque within bilateral cavernous carotids. ACT 112: Negative or not required by law. Electronically signed by: Blake Mendenhall M.D. 12/27/2020 7:55 PM
[2020-12-27] MEDS ORDERED: ASPIRIN CHEW 324 MG PO STA (21:33)
--- NOTE | 2020-12-27 22:06 | History & Physical Report ---
Date of Service December 27, 2020 Assessment & Plan (1) Stroke-like symptoms: Plan: Patient with dizziness, blurred vision, left arm and leg weakness- mostly resolved except for leg weakness - Posterior CVA vs. TIA vs. Vertigo - remains with variousness symptoms with head rotation - CTA of the head and neck reveal- stenosis of the right vertebral artery- MRI pending - ASA 324 mg given - Continue Plavix- add ASA daily if MRI reveals CVA - Neurology consult pending MRI results - PT/OT consult placed - Neuro checks q4 hours - On Atorvastatin 80mg QHS - Allow permissive HTN tonight- follow in morning (2) Vertigo: Plan: Patient with episodes in the past as per HPI - Rule out above with risk factors and vertebral artery stenosis - PT/OT - Zofran PRN - Get back to euvolemia (3) Hyponatremia: Plan: NA 128 associated with hypochloridemia- consistent with vomiting x2 today and decrease intake secondary to #1 and #2 - LR overnight at 90 ml/hr - Recheck BMP in morning - If continues to decrease- free water restrict and re-evaluate (4) UTI (urinary tract infection): Plan: Negative Nitrites, +LE, WBC 5-10 with 2+ bacteria - associated with increased frequency per patient report - 1gm rocephin given in EMD- continue can likely discontinue pending Urine cul ture (5) Coronary artery disease: Plan: Coronary disease and stress-induced cardiomyopathy (takotsubo cardiomyopathy) 07/2016-subsequently resolved. - Catheterization at that time revealed 40% LAD scattered disease, 40% circumflex scattered lesion, 60-70% RCA disease. - ECHO revealed LVEF was measured 40% with akinetic anterior apex. - Continue statin - Continue Metoprolol and Isosorbide - Patient was on ASA and Plavix previously (2019)- ASA was discontinued secodary to bruising (6) Impaired fasting glucose: Plan: Not on any medications at home - follow while in house- Goal <180 (7) Arthralgia of multiple sites: Plan: Continue tylenol - history of REJI positive as well- no further records available for review (8) Seizure: Plan: She has not had a seizure for may years- since her daughter was 9 >20 years ago - continues on Phenytoin, and Phenobarbital - Levels respectively (7.2)(13.6) (9) Hyperlipidemia: Plan: Continue Atrovastatin (10) Hypertension: Plan: As above continue regime starting in the AM - allow permissive HTN tonight (11) Right shoulder pain: Plan: Chronic - with rotator cuff injury and other shoulder fracture - continue Tylenol Plan: Patient seen and examined, chart reviewed, case discussed with CODI Ramon and I agree with his assessment and plan as above. In brief, patient is an 85yo female with history of HTN, HLP, Seizure disorder, CAD presenting with vertigo, diplopia, ataxia and left sided weakness, concern for TIA vs CVA. Patient lives alone. Ambulates with a walker at baseline On exam patient is afebrile, hypertensive otherwise HD stable, NAD Skin - intact, no rashes/lesions HEENT - NC/AT, PERRL, Neck supple Heart - +S1/S2, regular, no m/r/g Lungs - CTA Abd - +BS, soft, NT/ND Ext- warm, well perfused, no clubbing/cyanosis/edema Neuro - CN grossly intact, dizziness with nystagmus associated with head rotation, 3/5 strength in LLE Labs and images reviewed. Fj=083 Cl=96 Assessment/Plan - -Check MRI and Echo -Continue Plavix. Resume ASA pending results of MRI -Permissive HTN -check 2D echo -Remainder of plan as above History of Present Illness Primary Care Provider: Jerad Wolfe MD 85 YOF with past medical history of: NSTEMI, Takotsubo, CAD, Chronic gait disturbance, Seizures (on Phenytoin and phenobarbital), HTN, HLD. Patient comes to the emergency room today for complaints of dizziness, room spinning, weakness, blurry vision. Patient states she got up this morning around 0730 and was feeling well just fatigued. She had breakfast and had started feeling some nausea and vomiting x2 that she said progressed to vertiginous symptoms that she has had in the past. This was associated with left sided weakness of her leg and then her arm. She was able to get to bed and laid down for a bit and then called her daughter when she woke up still not feeling back to normal. Her daughter was in the room with her and said that was around 1530. The patient reports 2 other episodes like this in the past. The most recent per chart review shows in 2019, which again was associated with vomiting weakness. Her imaging at that time was CT scan with micro vascular ischemic changes and cerebral vascular calcifications and cisterna magna and normal MRI, no carotid imaging done at that time. The patient feels as her symptoms are improved since she came in but still feels week and fatigued. In the EMD the patient had a CTA of the head and neck and head CT performed. CTA revealed moderate to severe stenosis of the origin of the right vertebral artery and moderate calcified plaq ue within the proximal bilateral ICA without significant stenosis. She had routine labs done which revealed a NA level of 128 and chloride of 96, she was given 1gm Rocephin for concern of a UTI. The patient has some horizontal nystagmus noted on exam, left lower leg weakness and ataxia. She has no loss of fluency of reading or speech. Patient will be admitted for continued CVA workup. Will obtain MRI of the brain and ECHO. ASA given on admission. She was not a tPA candidate secondary to time of last known well. Patient has had her COVID vaccine and her COVID test on admission is: Allergies Allergy/AdvReac Type Severity Reaction Status Date / Time iodine Allergy Intermediate "makes me Verified 12/27/20 18:31 almost pass out" azithromycin Allergy Unknown Unknown Verified 12/27/20 18:31 simvastatin [From Zocor] Allergy Unknown Unknown Verified 12/27/20 18:31 Sulfa (Sulfonamide Allergy Unknown Unknown Verified 12/27/20 18:31 Antibiotics) sulfamethoxazole Allergy Unknown Unknown Verified 12/27/20 18:31 Home Medications Medication Instructions Recorded Confirmed Type acetaminophen 650 mg 650 mg PO Q12H PRN 09/14/18 12/27/20 History tablet,extended release (Tylenol Arthritis Pain) cyanocobalamin (vitamin B-12) 1,000 mcg PO QAM 12/09/19 12/27/20 History 1,000 mcg tablet (Vitamin B-12) atorvastatin 80 mg tablet 80 mg PO QAM #90 tab 10/14/20 12/27/20 Rx bumetanide 1 mg tablet 1 mg PO DAILY #90 tab 10/14/20 12/27/20 Rx clopidogrel 75 mg tablet 75 mg PO DAILY #90 tab 10/14/20 12/27/20 Rx isosorbide mononitrate 60 mg 60 mg PO QAM #90 tab 10/14/20 12/27/20 Rx tablet,extended release 24 hr metoprolol tartrate 25 mg tablet 25 mg PO BID #180 tab 10/14/20 12/27/20 Rx famotidine 20 mg tablet 20 mg PO BID #180 tab 10/25/20 12/27/20 Rx lancets 33 gauge (OneTouch Delica #100 ea 10/25/20 11/09/20 Rx Lancets) phenobarbital 16.2 mg tablet 32.4 mg PO BID #360 tab 10/27/20 12/27/20 Rx polyethylene glycol 3350 17 gram 17 g PO DAILY PRN 11/09/20 12/27/20 History oral powder packet (Miralax) blood sugar diagnostic #200 ea 11/22/20 Rx phenytoin sodium extended 100 mg 200 mg PO HS 12/27/20 12/27/20 History capsule sennosides 15 mg tablet (Ex-Lax 15 mg PO DAILY PRN 12/27/20 12/27/20 History (sennosides)) Past Med/Surg History Medical History (Updated 12/28/20 @ 00:45 by Tio Butcher DO) REJI positive Arthralgia of multiple sites Broken heart syndrome Depression Disorder of connective tissue Diverticulitis Fibromyalgia GERD (gastroesophageal reflux disease) Hearing deficit History of anemia Hyperlipidemia Hypertension Low back pain Nonocclusive coronary atherosclerosis of [place] coronary artery NSTEMI (non-ST elevated myocardial infarction) x2--last 07/2016--no rabble furnace tender, follows with Dr. 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 by Dr. Coppola, no stents History of cholecystectomy History of esophagogastroduodenoscopy (EGD) History of open reduction and internal fixation (ORIF) procedure right ankle--hardware in place History of shoulder surgery left History of tonsillectomy History of tooth extraction all teeth History of total hysterectomy with bilateral salpingo-oophorectomy (BSO) Family History Brother Family history of diabetes mellitus Sister Family history of diabetes mellitus Aunt Family history of diabetes mellitus Uncle Family history of diabetes mellitus Myocardial infarction Mother Heart disease Father Heart disease Myocardial infarction Other Arthritis No family history of adverse response to anesthesia Denies family history of Ovarian cancer Prostate cancer Breast cancer Lung cancer Cancer Social History Smoking Status: Former smoker Second Hand Exposure: Yes (in childhood); Hx Alcohol Use: No Hx Substance Use: No Preferred Language: Czech Communication Ability: Effective Stock Fitter Required: No Beliefs That Will Affect Care: None marital status: / Current Living Situation: Alone current occupational status: retired How many Children do You have: 8 Feels Safe at Home: Yes caffeine: Yes Dental Care, Regularly: No Physical Activity Frequency: Does not Exercise Seatbelt Use: always Sunscreen Use: No Assistive Devices: Denture - Upper, Denture - Lower, Glasses and Walker Review of Systems Review of Systems: REVIEW OF SYSTEMS: Constitutional: No fever, sweats or chills Eyes: (+) worse blurry vision this morning, No diplopia, ENT: normal hearing, no trouble swallowing Respiratory: No cough, sputum, dyspnea at rest or on exertion Cardiovascular: No chest pain, tightness or palpitations Abdomen: No pain, nausea, vomiting, diarrhea or constipation Musculoskeletal: No joint pain, calf pain, swelling Neurologic:(+) weakness, balance problems, NO numbness/tingling Psychiatric: No anxiety or depression Skin: No rash or itch Physical Exam Physical Exam: PHYSICAL EXAM: General: awake, alert, no apparent distress Head: Normocephalic, atraumatic ENT: no pharyngeal exudate, mucous membranes moist Neuro: PERRL, EOMI, AAO x 3, speech clear and appropriate, strength intact bilaterally 5/5 upper, 5/5 right lower, and 3/5 left lower, sensation intact and equal all extremities and dermatomes, no pronator drift, tongue midline, shoulder shrug equal, no facial droop, horizontal nystagmus, dizziness with head rotation, ataxia and overshoot with left arm. NIHSS- 3 Chest: equal rise and fall of the chest, no accessory muscle use, no heaves or thrills, Clear to auscultation, on room air, Cardiac: Regular rate and rhythm, telemetry reviewed, skin warm dry, cap refill <3 seconds, peripheral pulses +2 no JVD, no murmur, no edema GI: NABS x 4 quadrants, soft, nontender to palpation, no rebound, guarding or tenderness : Spontaneously voiding, no pain, no CVA tenderness, notes increase in frequency Extremities: Normal inspection, no peripheral edema or erythema, calfs nontender to palpation Psych: Normal mood and affect Skin: no rash or erythema, old ecchymosis to left ponce Results & Data Results & Data ([facility]) Vital Signs (Past 12 Hours) Vital Signs Temp Pulse Resp BP Pulse Ox 12/27/20 19:00 73 23 200/98 H 12/27/20 18:30 71 14 12/27/20 18:01 73 16 12/27/20 17:30 78 15 198/108 H 12/27/20 17:16 36.7 C 83 16 215/89 H 98 12/27/20 17:14 80 16 215/89 H Laboratory Results Abnormal lab results 12/27/20 12/27/20 12/27/20 Range/Units 17:48 17:48 17:48 Lymph # (Auto) 1.19 L (1.2-3.4) K/uL Sodium 128 L (136-145) mmol/L Chloride 96 L (98-107) mmol/L Creatinine 0.57 L (0.6-1.2) mg/dl BUN/Creatinine Ratio 22.4 H (10-20) Glucose 116 H (70-99) mg/dl Globulin 4.3 H (2.5-4.0) gm/dl Urine Blood (Negative) Ur Leukocyte Esterase (Negative) Urine WBC (Auto) (0-5) /hpf U Epithel Cells (Auto) (0-5) /lpf Urine Bacteria (Auto) (Negative) Phenytoin 7.2 L (10-20) mcg/ml Phenobarbital 13.6 L (15-40) mcg/mL 12/27/20 Range/Units 18:20 Lymph # (Auto) (1.2-3.4) K/uL Sodium (136-145) mmol/L Chloride (98-107) mmol/L Creatinine (0.6-1.2) mg/dl BUN/Creatinine Ratio (10-20) Glucose (70-99) mg/dl Globulin (2.5-4.0) gm/dl Urine Blood Trace H (Negative) Ur Leukocyte Esterase 1+ H (Negative) Urine WBC (Auto) 5-10 H (0-5) /hpf U Epithel Cells (Auto) 10-20 H (0-5) /lpf Urine Bacteria (Auto) 2+ H (Negative) Phenytoin (10-20) mcg/ml Phenobarbital (15-40) mcg/mL Diagnostic Findings Chest X-Ray 12/27/20 17:07 XR chest 1V portable CLINICAL HISTORY: Stroke Like Symptoms COMPARISON STUDY: Chest radiograph November 25, 2018. FINDINGS: Lung volumes are normal. Lungs are clear. There is no pneumothorax or pleural effusion. Cardiac size is normal. Upper mediastinal widening is unchanged. There is no evidence for pulmonary edema. There are postoperative findings within the left shoulder. IMPRESSION: No acute cardiopulmonary findings. No change in appearance of the chest. ACT 112: Negative or not required by law. Electronically signed by: Blake Mendenhall M.D. 12/27/2020 5:[address] 12/27/20 17:07 CT OF THE HEAD WITHOUT CONTRAST CLINICAL HISTORY: Stroke Like Symptoms COMPARISON STUDY: MRI of the brain March 2018. Head CT September 14, 2018. CT DOSE: 951.04 mGy.cm TECHNIQUE: Helical axial images of the head were obtained without IV contrast. Automated exposure control was utilized for the study. A dose lowering technique was utilized adhering to the principles of ALARA. FINDINGS: No acute intracranial hemorrhage, midline shift or mass effect is pr esent. The ventricular system is unremarkable. The basal cisterns are patent. 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 No extra-axial collections are present. There are no findings to suggest acute dural sinus thrombosis or acute territorial infarct. No significant calvarial abnormalities are present. Visualized portions of the sinuses and mastoid air cells are clear. IMPRESSION: No acute intracranial findings. No change in appearance of the brain. ACT 112: Negative or not required by law. Electronically signed by: Blake Mendenhall M.D. 12/27/2020 7:43 PM Head CTA 12/27/20 17:07 CTA ANGIOGRAPHY OF THE HEAD CLINICAL HISTORY: Stroke Like Symptoms COMPARISON STUDY: MRI of the brain August 31, 2018. Head CT August 30, 2018. TECHNIQUE: Patient was premedicated for IV allergy as per the protocol. Helical axial images of the head were obtained following uneventful intravenous administration of 110 cc of Optiray. Sagittal and coronal reconstructions were viewed as well as maximal intensity projections on an independent 3-D workstation. Automated exposure control was utilized for the study. A dose lo wering technique was utilized adhering to the principles of ALARA. FINDINGS: No acute intracranial hemorrhage, midline shift or mass effect is present. Ventricular system is unremarkable. Basal cisterns are patent. There are no extraaxial collections. There is moderate calcified atherosclerotic plaque within bilateral cavernous carotids. There is no intracranial aneurysm. No central vessel occlusion is noted. Right vertebral artery is dominant. Posterior circulation is intact. There is no dissection within the intracranial vessels. There is persistence of the right posterior cerebral artery which is patent. Major dural sinuses are patent. IMPRESSION: 1. No central vessel occlusion. No intracranial aneurysm. 2. Moderate calcified atherosclerotic plaque within bilateral cavernous carotids. ACT 112: Negative or not required by law. Electronically signed by: Blake Mendenhall M.D. 12/27/2020 7:55 PM Neck CTA 12/27/20 17:07 CT ANGIOGRAPHY OF THE NECK WITH CONTRAST CLINICAL HISTORY: Stroke Like Symptoms COMPARISON STUDY: No previous studies for comparison. Technique: Patient was premedicated for IV dye allergy as per ER protocol. CT angiography of the carotid and vertebral arteries was obtained using Optiray and 3D reconstruction on an independent workstation. NASCET criteria was utilized. Automated exposure control was utilized for the study. A dose lowering technique was utilized adhering to the principles of ALARA. Findings: There is moderate stenosis at the origin of the right vertebral artery. The right vertebral artery is dominant. There is no dissection within the major vessels of the neck. Moderate calcified atherosclerotic plaque within proximal bilateral internal carotid arteries is noted. There is no significant stenosis within the bilateral common carotid or cervical internal carotid arteries. The CTA of the head will be reported separately. Lung apices are unremarkable. Is no cervical lymphadenopathy. No acute cervical spine fracture is present. IMPRESSION: 1. Moderate calcified atherosclerotic plaque within the proximal bilateral internal carotid arteries without significant stenosis. 2. 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 3. No dissection within the major vessels of the neck. ACT 112: Negative or not required by law. Electronically signed by: Blake Mendenhall M.D. 12/27/2020 7:50 PM Medications Administered Discontinued Medications Aspirin (Aspirin Chew 324 Mg) 324 mg PO NOW STA Stop: 12/27/20 21:34 Last Admin: 12/27/20 21:55 Dose: 324 mg Documented by: [id number] Diphenhydramine HCl (Diphenhydramine 50 Mg/Ml Vial) 25 mg IV NOW STA Stop: 12/27/20 18:55 Last Admin: 12/27/20 19:00 Dose: 25 mg Documented by: [id number] Ceftriaxone Sodium (Rocephin) 1,000 mg in 50 mls @ 100 mls/hr IV NOW STA Stop: 12/27/20 19:36 Last Infusion: 12/27/20 19:55 Dose: 0 mls/hr Documented by: [id number] Admin: 12/27/20 19:21 Dose: 100 mls/hr Documented by: [id number] Ioversol (Optiray 320 125ml) 110 ml IV ONCE ONE Stop: 12/27/20 19:28 Last Admin: 12/27/20 19:27 Dose: 110 ml Documented by: [id number] Methylprednisolone (Methylprednisolone 125 Mg/2 Ml Vial) 125 mg IV NOW STA Stop: 12/27/20 18:55 Last Admin: 12/27/20 19:00 Dose: 125 mg Documented by: [id number] Metoprolol Tartrate (Metoprolol Tartrate 50 Mg Tab) 25 mg PO NOW STA Stop: 12/27/20 19:46 Last Admin: 12/27/20 20:20 Dose: 25 mg Documented by: [id number] Home Medications acetaminophen 650 mg tablet,extended release (Tylenol Arthritis Pain) 650 mg PO Q12H PRN 09/14/18 [History Confirmed 12/27/20] cyanocobalamin (vitamin B-12) 1,000 mcg tablet (Vitamin B-12) 1,000 mcg PO QAM 12/09/19 [History Confirmed 12/27/20] atorvastatin 80 mg tablet 80 mg PO QAM #90 tab 10/14/20 [Rx Confirmed 12/27/20] bumetanide 1 mg tablet 1 mg PO DAILY #90 tab 10/14/20 [Rx Confirmed 12/27/20] clopidogrel 75 mg tablet 75 mg PO DAILY #90 tab 10/14/20 [Rx Confirmed 12/27/20] isosorbide mononitrate 60 mg tablet,extended release 24 hr 60 mg PO QAM #90 tab 10/14/20 [Rx Confirmed 12/27/20] metoprolol tartrate 25 mg tablet 25 mg PO BID #180 tab 10/14/20 [Rx Confirmed 12/27/20] famotidine 20 mg tablet 20 mg PO BID #180 tab 10/25/20 [Rx Confirmed 12/27/20] lancets 33 gauge (OneTouch Delica Lancets) #100 ea 10/25/20 [Rx Confirmed 11/09/20] phenobarbital 16.2 mg tablet 32.4 mg PO BID #360 tab 10/27/20 [Rx Confirmed 12/27/20] polyethylene glycol 3350 17 gram oral powder packet (Miralax) 17 g PO DAILY PRN 11/09/20 [History Confirmed 12/27/20] blood sugar diagnostic #200 ea 11/22/20 [Rx] phenytoin sodium extended 100 mg capsule 200 mg PO HS 12/27/20 [History Confirmed 12/27/20] sennosides 15 mg tablet (Ex-Lax (sennosides)) 15 mg PO DAILY PRN 12/27/20 [History Confirmed 12/27/20] Active Medications Lactated Ringer's (Lr) 1,000 mls @ 90 mls/hr IV .[id number] ONE Stop: 12/28/20 09:17 ECG Additional Comments: Normal sinus rhythm Left axis deviation Abnormal ECG When compared with ECG of 14-SEP-2018 12:27, No significant change was found Code Status & VTE Plan Code Status CODE: DNR/DNI VTE: SCDs, Chemoprophylaxis on hold until MRI completed VTE Prophylaxis Plan VTE Prophylaxis will be ordered: Yes PG Care Time/CCT Total # of Minutes Spent Total Time Spent with Patient: Total time spent is greater than 50% in coordination of care (as documented) at patient's floor/unit and/or counseling patient: Coding Level of Care Code 61546 Initial Inpt Care Lvl 3 Diagnoses Coronary artery disease I25.10 Stroke-like symptoms R29.90 Vertigo R42 Seizure R56.9 Impaired fasting glucose R73.01 Arthralgia of multiple sites M25.50 Hyperlipidemia E78.5 Hypertension I10 Hypertension type: essential hypertension Hyponatremia E87.1 Right shoulder pain M25.511 UTI (urinary tract infection) N39.0 (1) Hypertension Hypertension type: essential hypertension Qualified Code(s): I10 - Essential (primary) hypertension
[2020-12-27] MEDS ORDERED: LACTATED RINGER'S 1,000 ML IV STA (22:19)
[2020-12-28] MEDS ORDERED: ONDANSETRON INJ 2 MG/ML 2 ML VIAL IV PRN (04:13)
[2020-12-28] MEDS ORDERED: POLYETHYLENE (MIRALAX) 17 GM PACK PO PRN (04:13)
[2020-12-28] MEDS ORDERED: PHARMACIST DISCHARGE MED REC CONSULT PRN (04:13)
[2020-12-28 07:13] LABS: Basophils # (auto) 0.03 K/uL (0-0.2); Basophils % (auto) 0.4 %; Eosinophils # (auto) 0.21 K/uL (0-0.5); Eosinophils % (auto) 2.7 %; Hematocrit (blood only) 36.8 % (37-47); Hemoglobin 12.7 g/dL (12.0-16.0); Immature Granulocytes # (auto) 0.01 K/uL (0.00-0.02); Immature Granulocytes % (auto) 0.1 %; Lymphocytes # (auto) 1.36 K/uL (1.2-3.4); Lymphocytes % (auto) 17.4 %; Mean Corpuscular Hemoglobin 32.5 pg (25-34); Mean Corpuscular Hgb Conc 34.5 g/dL (32-36); Mean Corpuscular Volume 94.1 fL (80-100); Mean Platelet Volume 9.1 fL (7.4-10.4); Monocytes # (auto) 0.61 K/uL (0.11-0.59); Monocytes % (auto) 7.8 %; Neutrophils # (auto) 5.58 K/uL (1.4-6.5); Neutrophils % (auto) 71.6 %; Platelet Count 310 K/uL (130-400); RDW Coefficient of Variation 13.6 % (11.5-14.5); Red Blood Count 3.91 M/uL (4.2-5.4)
[2020-12-28 07:28] LABS: Estimated Average Glucose 126 mg/dl
[2020-12-28 07:40] LABS: Calcium 8.7 mg/dl (8.5-10.1); Creatinine Clr Calc Pharmacy 64.7 ml/min; Est GFR (African American) 100.3 ml/min; Est GFR (Non-African American) 86.6 ml/min; Potassium 4.1 mmol/L (3.5-5.1)
--- NOTE | 2020-12-28 08:54 | Electrocardiogram Report ---
Test Reason : Blood Pressure : / mmHG Vent. Rate : 086 BPM Atrial Rate : 086 BPM P-R Int : 194 ms QRS Dur : 098 ms QT Int : 364 ms P-R-T Axes : 057 -38 076 degrees QTc Int : 435 ms Normal sinus rhythm Left axis deviation Poor R wave progression, consider anterior LA vs. lead placement vs. LVH Abnormal ECG When compared with ECG of 25-NOV-2018 16:33, No significant change was found Confirmed by Gutierrez Swan ([id number]) on 12/28/2020 8:53:49 AM Referred By: REFERRED SELF Confirmed By:Augustus Swan
[2020-12-28] MEDS: ATORVASTATIN 40 MG TAB PO SCH (09:59)
[2020-12-28] MEDS: BUMETANIDE 1 MG TAB PO SCH (10:00)
[2020-12-28] MEDS: CLOPIDOGREL BISULFATE 75 MG TAB PO SCH (10:00)
[2020-12-28] MEDS: FAMOTIDINE 20 MG TAB PO SCH ×2 (10:01→20:57)
[2020-12-28] MEDS: CYANOCOBALAMIN 500 MCG TABLET (VITAMIN B-12) PO SCH (10:01)
[2020-12-28] MEDS: ISOSORBIDE MONO EXTENDED REL 60 MG TABCR PO SCH (10:02)
[2020-12-28] MEDS: METOPROLOL TARTRATE 25 MG TAB PO SCH ×2 (10:03→20:57)
[2020-12-28] MEDS: SENNA 8.6 MG TAB PO PRN (10:03)
--- NOTE | 2020-12-28 11:46 | XCELERA ---
[id number]
--- NOTE | 2020-12-28 15:04 | Hospitalist Progress Note ---
Date of Service December 28, 2020 Assessment & Plan (1) Stroke-like symptoms: Plan: Patient with dizziness, blurred vision, left arm and leg weakness- mostly resolved except for leg weakness. - Posterior CVA vs. TIA vs. vertigo - remains with variousness symptoms with head rotation - CTA of the head and neck reveal- stenosis of the right vertebral artery- MRI pending - ASA 324 mg given - Continue Plavix- add ASA daily if MRI reveals CVA - Neurology consult pending MRI results - PT/OT consult placed - Neuro checks q4 hours - On Atorvastatin 80mg QHS - Allow permissive HTN tonight- follow in morning -> For me, dizziness is *not* related to head position, so unclear if this is new dizziness or patient just changing report. MRI pending still. Will trial meclizine. Middle ear effusions bilaterally, so will start Flonase in case some of this might be viral labyrinthitis. If not CVA seen on MRI, could consider steroids. (2) Vertigo: Plan: Patient with episodes in the past as per HPI - Rule out above with risk factors and vertebral artery stenosis - PT/OT - Zofran PRN - As above (3) Hyponatremia: Plan: NA 128 associated with hypochloridemia- consistent with vomiting x2 today and decrease intake secondary to #1 and #2 - LR overnight at 90 ml/hr - Recheck BMP in morning - If continues to decrease- free water restrict and re-evaluate -> Improving. 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 EF this admission is 60 - 65%. - Catheterization at that time revealed 40% LAD scattered disease, 40% circumflex scattered lesion, 60-70% RCA disease. - ECHO revealed LVEF was measured 40% with akinetic anterior apex. - Continue statin - Continue Metoprolol and Isosorbide - Patient was on ASA and Plavix previously (2019)- ASA was discontinued secodary to bruising (6) Impaired fasting glucose: Plan: Not on any medications at home - follow while in house- Goal <180 (7) Arthralgia of multiple sites: Plan: Continue tylenol - history of REJI positive as well- no further records available for review (8) Seizure: Plan: She has not had a seizure for may years- since her daughter was 9 >20 years ago - continues on Phenytoin, and Phenobarbital - Levels respectively (7.2)(13.6) (9) Hyperlipidemia: Plan: Continue Atrovastatin (10) Hypertension: Plan: BP today is 130/70. - Restart home meds as needed (11) Right shoulder pain: Plan: Chronic - with rotator cuff injury and other shoulder fracture - continue Tylenol Admission and Anticipated Discharge Date Admission Date: December 27, 2020 Subjective Dizziness seems to better today. Denies room spinning, mostly just a lightheaded sensation. Reports no fevers/chills, chest pain, shortness of breath, abdominal pain, nausea, or vomiting. Physical Exam Constitutional: WD/WN, vitals as above Eyes: EOM intact bilaterally; no conjunctival abnormality ENMT: external ear and nose normal, oropharynx normal Ears: + TM abnormality (Fluid bilaterally) Neck: trachea midline, no thyromegaly normal visual inspection Respiratory: normal respiratory effort, lungs clear to auscultation no respiratory distress Cardiovascular: RRR, no murmur, no edema Gastrointestinal (Abdomen): Inspection/Auscultation: abdomen normal to inspection; abdomen not distended Musculoskeletal: no cyanosis or clubbing, extremities motor strength 5/5 Skin: no rashes, warm and dry Neurologic: moves all extremities and awake Psychiatric: Orientation: alert, oriented to person and cooperative Results & Data Results & Data ([facility]) Vital Signs (Past 12 Hours) Vital Signs Temp Pulse Pulse Resp BP BP Pulse Ox 12/28/20 11:24 36.6 C 65 14 128/68 96 12/28/20 09:00 59 L 12/28/20 04:15 36.4 C L 70 20 189/80 H 99 12/28/20 03:30 59 L 20 153/61 H PG Care Time/CCT Total # of Minutes Spent Total Time Spent with Patient: Total time spent is greater than 50% in coordination of care (as documented) at patient's floor/unit and/or counseling patient: Coding Level of Care Code 28083 Subseq Hosp Care Lvl 2 Diagnoses Stroke-like symptoms R29.90 Vertigo R42 Hyponatremia E87.1 UTI (urinary tract infection) N39.0 Coronary artery disease I25.10 Impaired fasting glucose R73.01 Arthralgia of multiple sites M25.50 Seizure R56.9 Hyperlipidemia E78.5 Hypertension I10 Hypertension type: essential hypertension Right shoulder pain M25.511 (1) Hypertension Hypertension type: essential hypertension Qualified Code(s): I10 - Essential (primary) hypertension
[2020-12-28] MEDS ORDERED: MECLIZINE HCL 25 MG TAB PO PRN (15:10)
--- NOTE | 2020-12-28 16:39 | Magnetic Resonance Report ---
MR brain wo con INDICATION: Rule out cerebral vascular accident. Dizziness and weakness on left side for the past few months. History of seizures, last in the . TECHNIQUE: Multiplanar and multisequence MR images of the brain were obtained without intravenous con trast. Comparison: Comparison is made to MRI brain 08/31/2018 FINDINGS: No abnormal restricted diffusion is identified. Foci of T2 and FLAIR hyperintensity are noted in the paraventricular areas consistent with chronic small vessel ischemic disease. There is no evidence of acute intraparenchymal hemorrhage. No extra axial fluid collections are seen. There are no masses, ma ss effect, or midline shift. Ex vacuo ventriculomegaly and sulcal enlargement is noted compatible wit h diffuse encephalomalacia. The corpus callosum, pituitary gland, and cerebellar tonsils appear gross ly unremarkable. Flow voids of the major intracranial arterial vessels are identified. The imaged portions of the para nasal sinuses, mastoid air cells, and orbits are unremarkable. IMPRESSION: Chronic volume loss and age related white matter changes without evidence of acute abnormality. ACT 112: Negative or not required by law. Electronically signed by: Rajan Ortiz M.D. 12/28/2020 4:38 PM
[2020-12-28] MEDS ORDERED: cefTRIAXone SODIUM 1,000 MG in DEXTROSE 5% 50 ML IV SCH (20:00)
[2020-12-28] MEDS: FLUTICASONE PROPIONATE NA SPR 16 GM BTL SCH (20:55)
[2020-12-28] MEDS: PHENYTOIN SODIUM ER 100 MG CAP PO SCH (20:56)
[2020-12-29 07:22] LABS: Basophils # (auto) 0.04 K/uL (0-0.2); Basophils % (auto) 0.5 %; Eosinophils # (auto) 1.12 K/uL (0-0.5); Eosinophils % (auto) 14.5 %; Hematocrit (blood only) 37.2 % (37-47); Hemoglobin 12.7 g/dL (12.0-16.0); Immature Granulocytes # (auto) 0.01 K/uL (0.00-0.02); Immature Granulocytes % (auto) 0.1 %; Lymphocytes # (auto) 1.92 K/uL (1.2-3.4); Lymphocytes % (auto) 24.9 %; Mean Corpuscular Hemoglobin 32.6 pg (25-34); Mean Corpuscular Hgb Conc 34.1 g/dL (32-36); Mean Corpuscular Volume 95.6 fL (80-100); Mean Platelet Volume 9.1 fL (7.4-10.4); Monocytes # (auto) 0.75 K/uL (0.11-0.59); Monocytes % (auto) 9.7 %; Neutrophils # (auto) 3.88 K/uL (1.4-6.5); Neutrophils % (auto) 50.3 %; Platelet Count 290 K/uL (130-400); RDW Coefficient of Variation 13.7 % (11.5-14.5); RDW Standard Deviation 47.9 fL (36.4-46.3); Red Blood Count 3.89 M/uL (4.2-5.4); White Blood Count 7.72 K/uL (4.8-10.8)
[2020-12-29 07:51] LABS: BUN Creatinine Ratio 22.8 (10-20); Calcium 9.3 mg/dl (8.5-10.1); Creatinine Clr Calc Pharmacy 56.7 ml/min; Est GFR (African American) 96.3 ml/min; Est GFR (Non-African American) 83.1 ml/min; Potassium 3.7 mmol/L (3.5-5.1)
[2020-12-29] MEDS: FLUTICASONE PROPIONATE NA SPR 16 GM BTL SCH ×2 (08:22→20:27)
[2020-12-29] MEDS: ATORVASTATIN 40 MG TAB PO SCH (08:25)
[2020-12-29] MEDS: BUMETANIDE 1 MG TAB PO SCH (08:27)
[2020-12-29] MEDS: CLOPIDOGREL BISULFATE 75 MG TAB PO SCH (08:27)
[2020-12-29] MEDS: CYANOCOBALAMIN 500 MCG TABLET (VITAMIN B-12) PO SCH (08:28)
[2020-12-29] MEDS: FAMOTIDINE 20 MG TAB PO SCH ×2 (08:28→20:28)
[2020-12-29] MEDS: ISOSORBIDE MONO EXTENDED REL 60 MG TABCR PO SCH (08:29)
[2020-12-29] MEDS: METOPROLOL TARTRATE 25 MG TAB PO SCH ×2 (08:29→20:30)
--- NOTE | 2020-12-29 13:34 | Hospitalist Progress Note ---
Date of Service December 29, 2020 Assessment & Plan (1) Stroke-like symptoms: Plan: Patient with dizziness, blurred vision, left arm and leg weakness-symptoms resolved -pt vague and inconsistent historian (as to me reports that she had dizziness that was described as "spinning" and generalized weakness) -CT of the head: No acute intracranial process -CTA of the head and neck: Moderate plaque of the bilateral carotids. Moderate to severe right vertebral artery stenosis -MRI of the brain: Chronic changes without acute intracranial process -Echocardiogram: Mild concentric LVH. EF 60 to 65%. Mild MR. -Patient takes Plavix chronically. Her current symptoms seem more consistent with labyrinthitis/vertigo; however, that would not attribute to unilateral weakness that she did noted upon presentation (which she now denies) -At any rate, patient does have significant carotid stenosis. We will add aspirin. Given her age and risk for being on dual antiplatelet therapy, will also add PPI for GI prophylaxis - PT/OT consulted - Neuro checks q4 hours - cont Atorvastatin 80mg QHS -*As outlined above, symptoms seem more consistent with labyrinth-itis with vertigo. Will change Antivert to routine for 3 doses and then back to as needed. Continue Flonase. Consult PT for Noe maneuver. Continue PT/OT. Potential discharge tomorrow? (2) Vertigo: Plan: Patient with episodes in the past as per HPI -se above (3) Hyponatremia: Plan: NA 128 associated with hypochloridemia- consistent with vomiting x2 today and decrease intake secondary to #1 and #2 - IVF upfront - currently resolved. - continue to trend (4) Carotid stenosis: Plan: -Add aspirin to Plavix -Continue high intensity statin -Consider referral to vascular as an outpatient (5) UTI (urinary tract infection): Plan: UC with pansensitive E.Coli - associated with increased frequency per patient report - 1gm rocephin given in EMD. 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 EF this admission is 60 - 65%. - Catheterization at that time revealed 40% LAD scattered disease, 40% circumflex scattered lesion, 60-70% RCA disease. - ECHO revealed LVEF was measured 40% with akinetic anterior apex. - Continue statin - Continue Metoprolol and Isosorbide - Patient was on ASA and Plavix previously (2019)- ASA was discontinued secodary to bruising -Given carotid disease and the fact that I cannot say she did not have a TIA, will restart aspirin. Add pantoprazole for GI prophylaxis given age and risk for bleeding (7) Arthralgia of multiple sites: Plan: Continue tylenol - history of REJI positive as well- no further records available for review (8) Seizure: Plan: She has not had a seizure for may years- since her daughter was 9 >20 years ago - continues on Phenytoin, and Phenobarbital - Levels respectively (7.2)(13.6) (9) Hyperlipidemia: Plan: Continue Atrovastatin (10) Hypertension: Plan: -Continue isosorbide and metoprolol as prior to hospitalization (11) Right shoulder pain: Plan: Chronic - with rotator cuff injury and other shoulder fracture - continue Tylenol Plan: - PT/OT on consult - ? d/c tomorrow - ASA added to plavix regimen. Also now on PPI for GI proph - requested noe maneuver from PT Admission and Anticipated Discharge Date Admission Date: December 27, 2020 Subjective Patient seen on daily rounds today. She is an 85-year-old white female with an underlying past medical history of CAD s/p old [place], Takotsubo, seizure disorder, HTN, and HLD. She was hospitalized on 12/27 with strokelike symptoms. In report, she had a sensation of dizziness, blurred vision, nausea/vomiting, and left-sided weakness. She seems to be a very vague and inconsistent historian. She does admit to nausea and vomiting but reports to me that this was due to the "spinning sensat ion". She denies any unilateral weakness. Does report blurred vision but describes it as "looking through a grid". Claims that this is not new. When seen by provider yesterday, started on Antivert as needed. She reports this is helping with her symptomatology. In addition, was started on some Flonase. Today, patient has had a CT of the head, CTA of the head and neck, and an MRI of the brain. She does have moderate plaque seen in the bilateral carotids with moderate to severe right vertebral artery stenosis but no evidence of acute intracranial infarct. Did have a low sodium of 128 upon presentation. This would be consistent with volume depletion from nausea and vomiting. This has since improved with gentle IV hydration and holding Bumex. Her Bumex has since been resumed and her sodium level today is 135. She is noted to have a pansensitive E. coli UTI for which she is on Rocephin. Denies dysuria, hematuria, urinary frequency. Denies incontinence. Review of Systems Review of Systems: All systems reviewed and are unremarkable except as noted in HPI and below Denies fevers, chills, headache, nasal congestion, sore throat, cough, chest pain, shortness of breath, palpitations, orthopnea, PND, abdominal pain, nausea, vomiting, diarrhea, constipation, dysuria, hematuria, frequency, back pain, joint pain or swelling, easy bruising or bleeding, skin lesions or rashes. Physical Exam Physical Exam: General: Resting comfortably in her hospital bed. NAD. HEENT: Air-fluid levels noted behind the bilateral TM. TM are also retracted bilaterally. She does have nystagmus seen in the left lateral gaze. Buccal mucosa is moist and pink Neck: No JVD. Negative hepatojugular reflex Cardiac: RRR 1/6 ARLENE Lungs: CTA without W/R/R Abdomen: Normoactive X4. Soft and nontender in all quadrants. Extremities: No peripheral clubbing cyanosis or edema Neuro: A&O X4 cranial nerves II through XII are grossly intact no focal neuro deficits Skin: No obvious skin lesions or rashes Psych: Appropriate affect pleasant and cooperative Results & Data Results & Data ([facility]) Vital Signs (Past 12 Hours) Vital Signs Temp Pulse Pulse Resp BP Pulse Ox 12/29/20 11:10 36.5 C 61 16 96/56 L 95 12/29/20 07:29 62 12/29/20 07:10 36.3 C L 73 16 163/73 H 96 12/29/20 04:06 36.7 C 70 18 142/68 H 95 Laboratory Results 12/29/20 07:00 12/29/20 07:00 Procedure Result Verified Site Urine Culture Final 12/29/20-1123 Organism 1 Escherichia coli [place] Count >100,000 CFU/ml Sens Sensitivities to Follow E coli RX M.I.C. --- --------- Amox/Clav S <=8/4 Ampicillin S <=8 Amp/Sul S <=8/4 Cefazolin S <=2 Cefepime S <=2 Ceftriaxone S <=1 Ciprofloxacin S <=0.25 Ertapenem S <=0.5 Gentamicin S <=4 Levofloxacin S <=0.5 Meropenem S <=1 Nitrofurantoin S <=32 Tobramycin S <=4 Trimeth/Sulfa S <=2/38 Pip/Tazo S <=16 PG Care Time/CCT Total # of Minutes Spent Total Time Spent with Patient: Total time spent is greater than 50% in coordination of care (as documented) at patient's floor/unit and/or counseling patient: Coding [place] [address] Subseq Hosp Care Lvl 3 Patient Type Established History Comprehensive Exam Comprehensive Medical Decision Making High Complexity Diagnoses Stroke-like symptoms R29.90 Vertigo R42 Hyponatremia E87.1 UTI (urinary tract infection) N39.0 Coronary artery disease I25.10 Arthralgia of multiple sites M25.50 Seizure R56.9 Hyperlipidemia E78.5 Hypertension I10 Hypertension type: essential hypertension Right shoulder pain M25.511 Carotid stenosis I65.29 (1) Hypertension Hypertension type: essential hypertension Qualified Code(s): I10 - Essential (primary) hypertension
[2020-12-29] MEDS: MECLIZINE HCL 25 MG TAB PO SCH ×2 (13:43→20:28)
--- NOTE | 2020-12-29 17:44 | Electrocardiogram Report ---
Test Reason : Blood Pressure : / mmHG Vent. Rate : 074 BPM Atrial Rate : 074 BPM P-R Int : 174 ms QRS Dur : 098 ms QT Int : 416 ms P-R-T Axes : 064 -45 066 degrees QTc Int : 461 ms Normal sinus rhythm Left anterior fascicular block Abnormal ECG When compared with ECG of 27-DEC-2020 17:08, No significant change was found Confirmed by Gutierrez Swan ([id number]) on 12/29/2020 5:44:42 PM Referred By: REFERRED SELF Confirmed By:Augustus Swan
[2020-12-29] MEDS: ACETAMINOPHEN 325 MG TAB PO PRN (20:27)
[2020-12-29] MEDS: CIPROFLOXACIN 500 MG TAB PO SCH (20:28)
[2020-12-29] MEDS: PHENYTOIN SODIUM ER 100 MG CAP PO SCH (20:28)
[2020-12-30 07:56] LABS: Basophils # (auto) 0.04 K/uL (0-0.2); Basophils % (auto) 0.7 %; Eosinophils # (auto) 1.05 K/uL (0-0.5); Eosinophils % (auto) 17.1 %; Hematocrit (blood only) 34.7 % (37-47); Hemoglobin 11.9 g/dL (12.0-16.0); Immature Granulocytes # (auto) 0.01 K/uL (0.00-0.02); Immature Granulocytes % (auto) 0.2 %; Lymphocytes # (auto) 1.67 K/uL (1.2-3.4); Lymphocytes % (auto) 27.2 %; Mean Corpuscular Hemoglobin 32.7 pg (25-34); Mean Corpuscular Hgb Conc 34.3 g/dL (32-36); Mean Corpuscular Volume 95.3 fL (80-100); Mean Platelet Volume 9.2 fL (7.4-10.4); Monocytes # (auto) 0.63 K/uL (0.11-0.59); Monocytes % (auto) 10.3 %; Neutrophils # (auto) 2.73 K/uL (1.4-6.5); Neutrophils % (auto) 44.5 %; Platelet Count 266 K/uL (130-400); RDW Coefficient of Variation 13.5 % (11.5-14.5); RDW Standard Deviation 47.2 fL (36.4-46.3); Red Blood Count 3.64 M/uL (4.2-5.4); White Blood Count 6.13 K/uL (4.8-10.8)
[2020-12-30] MEDS: PANTOprazole 40 MG TAB PO SCH (08:03)
[2020-12-30] MEDS: ATORVASTATIN 40 MG TAB PO SCH (08:03)
[2020-12-30] MEDS: BUMETANIDE 1 MG TAB PO SCH (08:03)
[2020-12-30] MEDS: CLOPIDOGREL BISULFATE 75 MG TAB PO SCH (08:03)
[2020-12-30] MEDS: ISOSORBIDE MONO EXTENDED REL 60 MG TABCR PO SCH (08:03)
[2020-12-30] MEDS: CYANOCOBALAMIN 500 MCG TABLET (VITAMIN B-12) PO SCH (08:03)
[2020-12-30] MEDS: FAMOTIDINE 20 MG TAB PO SCH ×2 (08:03→22:10)
[2020-12-30] MEDS: SENNA 8.6 MG TAB PO PRN (08:03)
[2020-12-30] MEDS: CIPROFLOXACIN 500 MG TAB PO SCH ×2 (08:04→22:10)
[2020-12-30] MEDS: ASPIRIN 81 MG ECTAB PO SCH (08:04)
[2020-12-30] MEDS: MECLIZINE HCL 25 MG TAB PO SCH (08:04)
[2020-12-30] MEDS: FLUTICASONE PROPIONATE NA SPR 16 GM BTL SCH ×2 (08:04→22:11)
[2020-12-30 08:25] LABS: BUN Creatinine Ratio 26.8 (10-20); Calcium 8.8 mg/dl (8.5-10.1); Creatinine Clr Calc Pharmacy 62.5 ml/min; Est GFR (African American) 99.1 ml/min; Est GFR (Non-African American) 85.5 ml/min; Potassium 4.5 mmol/L (3.5-5.1)
[2020-12-30] MEDS: METOPROLOL TARTRATE 25 MG TAB PO SCH ×2 (08:26→22:10)
[2020-12-30] MEDS ORDERED: MECLIZINE HCL 25 MG TAB PO PRN (14:00)
--- NOTE | 2020-12-30 20:39 | Hospitalist Progress Note ---
Date of Service December 30, 2020 Assessment & Plan (1) Stroke-like symptoms: Plan: Patient with dizziness, blurred vision, left arm and leg weakness-symptoms resolved -pt vague and inconsistent historian (as to me reports that she had dizziness that was described as "spinning" and generalized weakness) -CT of the head: No acute intracranial process -CTA of the head and neck: Moderate plaque of the bilateral carotids. Moderate to severe right vertebral artery stenosis -MRI of the brain: Chronic changes without acute intracranial process -Echocardiogram: Mild concentric LVH. EF 60 to 65%. Mild MR. -Patient takes Plavix chronically. Her current symptoms seem more consistent with labyrinthitis/vertigo; however, that would not attribute to unilateral weakness that she did noted upon presentation (which she now denies) -At any rate, patient does have significant carotid stenosis. We will add aspirin. Given her age and risk for being on dual antiplatelet therapy, will also add PPI for GI prophylaxis - PT/OT consulted - Neuro checks q4 hours - cont Atorvastatin 80mg QHS -*As outlined above, symptoms seem more consistent with labyrinth-itis with vertigo. Will change Antivert to routine for 3 doses and then back to as needed. Continue Flonase. Consult PT for Noe maneuver. Continue PT/OT. On 12/30 Patient continues to have dizziness. Reviewed MRI negative. will monitor obvernight for symptoms. Awaiting placement. (2) Vertigo: Plan: Patient with episodes in the past as per HPI -se above (3) Hyponatremia: Plan: NA 128 associated with hypochloridemia- consistent with vomiting x2 today and decrease intake secondary to #1 and #2 - IVF upfront - currently resolved. - continue to trend (4) Carotid stenosis: Plan: -Add aspirin to Plavix -Continue high intensity statin -Consider referral to vascular as an outpatient (5) UTI (urinary tract infection): Plan: UC with pansensitive E.Coli - associated with increased frequency per patient report - 1gm rocephin given in EMD. 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 EF this admission is 60 - 65%. - Catheterization at that time revealed 40% LAD scattered disease, 40% circumflex scattered lesion, 60-70% RCA disease. - ECHO revealed LVEF was measured 40% with akinetic anterior apex. - Continue statin - Continue Metoprolol and Isosorbide - Patient was on ASA and Plavix previously (2019)- ASA was discontinued secodary to bruising -Given carotid disease and the fact that I cannot say she did not have a TIA, will restart aspirin. Add pantoprazole for GI prophylaxis given age and risk for bleeding (7) Arthralgia of multiple sites: Plan: Continue tylenol - history of REJI positive as well- no further records available for review (8) Seizure: Plan: She has not had a seizure for may years- since her daughter was 9 >20 years ago - continues on Phenytoin, and Phenobarbital - Levels respectively (7.2)(13.6) (9) Hyperlipidemia: Plan: Continue Atrovastatin (10) Hypertension: Plan: -Continue isosorbide and metoprolol as prior to hospitalization (11) Right shoulder pain: Plan: Chronic - with rotator cuff injury and other shoulder fracture - continue Tylenol Plan: - PT/OT on consult - ? d/c tomorrow - ASA added to plavix regimen. Also now on PPI for GI proph - requested noe maneuver from PT Admission and Anticipated Discharge Date Admission Date: December 27, 2020 Subjective 85 yo female reports having dizziness today. She reports this has been an ongoing and chronic issue. She states she will followup with a ENT as an outpatient. She states she is interested in going to a rehab. Review of Systems Review of Systems: All systems reviewed & are unremarkable except as noted in HPI & below Physical Exam Physical Exam: General: Resting comfortably in her hospital bed. NAD. HEENT: She does have nystagmus seen in the left lateral gaze. Buccal mucosa is moist and pink Neck: No JVD. Negative hepatojugular reflex Cardiac: RRR 1/6 ARLENE Lungs: CTA without W/R/R Abdomen: Normoactive X4. Soft and nontender in all quadrants. Extremities: No peripheral clubbing cyanosis or edema Neuro: A&O X4 cranial nerves II through XII are grossly intact no focal neuro deficits Skin: No obvious skin lesions or rashes Psych: Appropriate affect pleasant and cooperative Results & Data Results & Data ([facility]) Vital Signs (Past 12 Hours) Vital Signs Temp Pulse Pulse Resp BP BP Pulse Ox 12/30/20 19:00 36.7 C 82 82 20 157/67 H 94 12/30/20 15:00 36.8 C 88 20 149/72 H 95 12/30/20 12:00 36.8 C 72 16 161/63 H 98 12/30/20 10:30 59 L 12/30/20 08:51 36.5 C 69 18 161/83 H 98 PG Care Time/CCT Total # of Minutes Spent Total Time Spent with Patient: Total time spent is greater than 50% in coordination of care (as documented) at patient's floor/unit and/or counseling patient: Coding Level of Care Code 50979 Subseq Hosp Care Lvl 2 Diagnoses Stroke-like symptoms R29.90 Vertigo R42 Hyponatremia E87.1 Carotid stenosis I65.29 UTI (urinary tract infection) N39.0 Coronary artery disease I25.10 Arthralgia of multiple sites M25.50 Seizure R56.9 Hyperlipidemia E78.5 Hypertension I10 Hypertension type: essential hypertension Right shoulder pain M25.511 Time Spent (min) 25 (1) Hypertension Hypertension type: essential hypertension Qualified Code(s): I10 - Essential (primary) hypertension
[2020-12-30] MEDS: PHENYTOIN SODIUM ER 100 MG CAP PO SCH (22:11)
[2020-12-31] MEDS: ASPIRIN 81 MG ECTAB PO SCH (08:07)
[2020-12-31] MEDS: PANTOprazole 40 MG TAB PO SCH (08:07)
[2020-12-31] MEDS: METOPROLOL TARTRATE 25 MG TAB PO SCH ×2 (08:07→22:33)
[2020-12-31] MEDS: CLOPIDOGREL BISULFATE 75 MG TAB PO SCH (08:08)
[2020-12-31] MEDS: FAMOTIDINE 20 MG TAB PO SCH ×2 (08:08→22:31)
[2020-12-31] MEDS: CYANOCOBALAMIN 500 MCG TABLET (VITAMIN B-12) PO SCH (08:08)
[2020-12-31] MEDS: ISOSORBIDE MONO EXTENDED REL 60 MG TABCR PO SCH (08:09)
[2020-12-31] MEDS: ATORVASTATIN 40 MG TAB PO SCH (08:09)
[2020-12-31] MEDS: BUMETANIDE 1 MG TAB PO SCH (08:10)
[2020-12-31] MEDS: CIPROFLOXACIN 500 MG TAB PO SCH (08:10)
[2020-12-31] MEDS: FLUTICASONE PROPIONATE NA SPR 16 GM BTL SCH ×2 (08:16→22:33)
--- NOTE | 2020-12-31 20:22 | Hospitalist Progress Note ---
Date of Service December 31, 2020 Assessment & Plan (1) Stroke-like symptoms: Plan: Patient with dizziness, blurred vision, left arm and leg weakness-symptoms resolved -pt vague and inconsistent historian (as to me reports that she had dizziness that was described as "spinning" and generalized weakness) -CT of the head: No acute intracranial process -CTA of the head and neck: Moderate plaque of the bilateral carotids. Moderate to severe right vertebral artery stenosis -MRI of the brain: Chronic changes without acute intracranial process -Echocardiogram: Mild concentric LVH. EF 60 to 65%. Mild MR. -Patient takes Plavix chronically. Her current symptoms seem more consistent with labyrinthitis/vertigo; however, that would not attribute to unilateral weakness that she did noted upon presentation (which she now denies) -At any rate, patient does have significant carotid stenosis. We will add aspirin. Given her age and risk for being on dual antiplatelet therapy, will also add PPI for GI prophylaxis - PT/OT consulted - Neuro checks q4 hours - cont Atorvastatin 80mg QHS -*As outlined above, symptoms seem more consistent with labyrinth-itis with vertigo. Will change Antivert to routine for 3 doses and then back to as needed. Continue Flonase. Consult PT for Noe maneuver. Continue PT/OT. On 12/31 Dizziness has improved Reviewed MRI negative. Awaiting placement. (2) Vertigo: Plan: Patient with episodes in the past as per HPI -se above (3) Hyponatremia: Plan: NA 128 associated with hypochloridemia- consistent with vomiting x2 today and decrease intake secondary to #1 and #2 - IVF upfront - currently resolved. - continue to trend (4) Carotid stenosis: Plan: -Add aspirin to Plavix -Continue high intensity statin -Consider referral to vascular as an outpatient (5) UTI (urinary tract infection): Plan: UC with pansensitive E.Coli - associated with increased frequency per patient report - 1gm rocephin given in EMD. 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 EF this admission is 60 - 65%. - Catheterization at that time revealed 40% LAD scattered disease, 40% circumflex scattered lesion, 60-70% RCA disease. - ECHO revealed LVEF was measured 40% with akinetic anterior apex. - Continue statin - Continue Metoprolol and Isosorbide - Patient was on ASA and Plavix previously (2018)- ASA was discontinued secodary to bruising -Given carotid disease and the fact that I cannot say she did not have a TIA, will restart aspirin. Add pantoprazole for GI prophylaxis given age and risk for bleeding (7) Arthralgia of multiple sites: Plan: Continue tylenol - history of REJI positive as well- no further records available for review (8) Seizure: Plan: She has not had a seizure for may years- since her daughter was 9 >20 years ago - continues on Phenytoin, and Phenobarbital - Levels respectively (7.2)(13.6) (9) Hyperlipidemia: Plan: Continue Atrovastatin (10) Hypertension: Plan: -Continue isosorbide and metoprolol as prior to hospitalization (11) Right shoulder pain: Plan: Chronic - with rotator cuff injury and other shoulder fracture - continue Tylenol Plan: - PT/OT on consult - ? d/c tomorrow - ASA added to plavix regimen. Also now on PPI for GI proph - requested noe maneuver from PT Admission and Anticipated Discharge Date Admission Date: December 27, 2020 Subjective Patient reports her dizziness has improved today. Review of Systems Review of Systems: All systems reviewed & are unremarkable except as noted in HPI & below Physical Exam Physical Exam: General: Resting comfortably in her hospital bed. NAD. HEENT: She does have nystagmus seen in the left lateral gaze. Buccal mucosa is moist and pink Neck: No JVD. Negative hepatojugular reflex Cardiac: RRR 1/6 ARLENE Lungs: CTA without W/R/R Abdomen: Normoactive X4. Soft and nontender in all quadrants. Extremities: No peripheral clubbing cyanosis or edema Neuro: A&O X4 cranial nerves II through XII are grossly intact no focal neuro deficits Skin: No obvious skin lesions or rashes Psych: Appropriate affect pleasant and cooperative Results & Data Results & Data ([facility]) Vital Signs (Past 12 Hours) Vital Signs Temp Pulse Pulse Resp BP BP Pulse Ox 12/31/20 19:00 36.6 C 78 20 179/90 H 97 12/31/20 15:00 61 12/31/20 11:15 36.6 C 66 16 106/60 96 PG Care Time/CCT Total # of Minutes Spent Total Time Spent with Patient: Total time spent is greater than 50% in coordination of care (as documented) at patient's floor/unit and/or counseling patient: Coding Level of Care Code 58694 Subseq Hosp Care Lvl 2 Diagnoses Stroke-like symptoms R29.90 Vertigo R42 Hyponatremia E87.1 Carotid stenosis I65.29 UTI (urinary tract infection) N39.0 Coronary artery disease I25.10 Arthralgia of multiple sites M25.50 Seizure R56.9 Hyperlipidemia E78.5 Hypertension I10 Hypertension type: essential hypertension Right shoulder pain M25.511 (1) Hypertension Hypertension type: essential hypertension Qualified Code(s): I10 - Essential (primary) hypertension
[2020-12-31] MEDS: PHENYTOIN SODIUM ER 100 MG CAP PO SCH (22:34)
[2021-01-01] MEDS: PANTOprazole 40 MG TAB PO SCH (08:06)
[2021-01-01] MEDS: SENNA 8.6 MG TAB PO PRN (08:06)
[2021-01-01] MEDS: ISOSORBIDE MONO EXTENDED REL 60 MG TABCR PO SCH (08:06)
[2021-01-01] MEDS: CLOPIDOGREL BISULFATE 75 MG TAB PO SCH (08:07)
[2021-01-01] MEDS: ATORVASTATIN 40 MG TAB PO SCH (08:07)
[2021-01-01] MEDS: BUMETANIDE 1 MG TAB PO SCH (08:07)
[2021-01-01] MEDS: CYANOCOBALAMIN 500 MCG TABLET (VITAMIN B-12) PO SCH (08:07)
[2021-01-01] MEDS: METOPROLOL TARTRATE 25 MG TAB PO SCH ×2 (08:07→22:15)
[2021-01-01] MEDS: FAMOTIDINE 20 MG TAB PO SCH ×2 (08:07→22:15)
[2021-01-01] MEDS: ASPIRIN 81 MG ECTAB PO SCH (08:07)
[2021-01-01] MEDS: FLUTICASONE PROPIONATE NA SPR 16 GM BTL SCH ×2 (08:08→22:16)
--- NOTE | 2021-01-01 20:53 | Hospitalist Progress Note ---
Date of Service January 01, 2021 Assessment & Plan (1) Stroke-like symptoms: Plan: Patient with dizziness, blurred vision, left arm and leg weakness-symptoms resolved -pt vague and inconsistent historian (as to me reports that she had dizziness that was described as "spinning" and generalized weakness) -CT of the head: No acute intracranial process -CTA of the head and neck: Moderate plaque of the bilateral carotids. Moderate to severe right vertebral artery stenosis -MRI of the brain: Chronic changes without acute intracranial process -Echocardiogram: Mild concentric LVH. EF 60 to 65%. Mild MR. -Patient takes Plavix chronically. Her current symptoms seem more consistent with labyrinthitis/vertigo; however, that would not attribute to unilateral weakness that she did noted upon presentation (which she now denies) -At any rate, patient does have significant carotid stenosis. We will add aspirin. Given her age and risk for being on dual antiplatelet therapy, will also add PPI for GI prophylaxis - PT/OT consulted - Neuro checks q4 hours - cont Atorvastatin 80mg QHS -*As outlined above, symptoms seem more consistent with labyrinth-itis with vertigo. Will change Antivert to routine for 3 doses and then back to as needed. Continue Flonase. Consult PT for Noe maneuver. Continue PT/OT. On 01/01 Dizziness has improved Reviewed MRI negative. Awaiting placement. Likely discharge on Sunday. (2) Vertigo: Plan: Patient with episodes in the past as per HPI -se above (3) Hyponatremia: Plan: NA 128 associated with hypochloridemia- consistent with vomiting x2 today and decrease intake secondary to #1 and #2 - IVF upfront - currently resolved. - continue to trend (4) Carotid stenosis: Plan: -Add aspirin to Plavix -Continue high intensity statin -Consider referral to vascular as an outpatient (5) UTI (urinary tract infection): Plan: UC with pansensitive E.Coli - associated with increased frequency per patient report - 1gm rocephin given in EMD. 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 EF this admission is 60 - 65%. - Catheterization at that time revealed 40% LAD scattered disease, 40% circumflex scattered lesion, 60-70% RCA disease. - ECHO revealed LVEF was measured 40% with akinetic anterior apex. - Continue statin - Continue Metoprolol and Isosorbide - Patient was on ASA and Plavix previously (2018)- ASA was discontinued secodary to bruising -Given carotid disease and the fact that I cannot say she did not have a TIA, will restart aspirin. Add pantoprazole for GI prophylaxis given age and risk for bleeding (7) Arthralgia of multiple sites: Plan: Continue tylenol - history of REJI positive as well- no further records available for review (8) Seizure: Plan: She has not had a seizure for may years- since her daughter was 9 >20 years ago - continues on Phenytoin, and Phenobarbital - Levels respectively (7.2)(13.6) (9) Hyperlipidemia: Plan: Continue Atrovastatin (10) Hypertension: Plan: -Continue isosorbide and metoprolol as prior to hospitalization (11) Right shoulder pain: Plan: Chronic - with rotator cuff injury and other shoulder fracture - continue Tylenol Plan: - PT/OT on consult - ? d/c tomorrow - ASA added to plavix regimen. Also now on PPI for GI proph - requested noe maneuver from PT Admission and Anticipated Discharge Date Admission Date: December 27, 2020 Subjective Patient reports that he dizziness is slightly better today. It is still present. Review of Systems Review of Systems: All systems reviewed & are unremarkable except as noted in HPI & below Physical Exam Physical Exam: General: Resting comfortably in her hospital bed. NAD. HEENT: She does have nystagmus seen in the left lateral gaze. Buccal mucosa is moist and pink Neck: No JVD. Negative hepatojugular reflex Cardiac: RRR 1/6 ARLENE Lungs: CTA without W/R/R Abdomen: Normoactive X4. Soft and nontender in all quadrants. Extremities: No peripheral clubbing cyanosis or edema Neuro: A&O X4 cranial nerves II through XII are grossly intact no focal neuro deficits Skin: No obvious skin lesions or rashes Psych: Appropriate affect pleasant and cooperative Results & Data Results & Data ([facility]) Vital Signs (Past 12 Hours) Vital Signs Temp Pulse Resp BP BP Pulse Ox 01/01/21 19:00 36.8 C 72 20 157/69 H 95 01/01/21 15:28 36.8 C 74 18 132/67 94 10/09/21 11:41 36.6 C 64 18 168/68 H 97 PG Care Time/CCT Total # of Minutes Spent Total Time Spent with Patient: Total time spent is greater than 50% in coordination of care (as documented) at patient's floor/unit and/or counseling patient: Coding Level of Care Code 72111 Subseq Hosp Care Lvl 2 Diagnoses Stroke-like symptoms R29.90 Vertigo R42 Hyponatremia E87.1 Carotid stenosis I65.29 UTI (urinary tract infection) N39.0 Coronary artery disease I25.10 Arthralgia of multiple sites M25.50 Seizure R56.9 Hyperlipidemia E78.5 Hypertension I10 Hypertension type: essential hypertension Right shoulder pain M25.511 (1) Hypertension Hypertension type: essential hypertension Qualified Code(s): I10 - Essential (primary) hypertension
[2021-01-01] MEDS: PHENYTOIN SODIUM ER 100 MG CAP PO SCH (22:16)
[2021-01-02] MEDS: BUMETANIDE 1 MG TAB PO SCH (07:35)
[2021-01-02] MEDS: PANTOprazole 40 MG TAB PO SCH (07:35)
[2021-01-02] MEDS: SENNA 8.6 MG TAB PO PRN (07:35)
[2021-01-02] MEDS: CYANOCOBALAMIN 500 MCG TABLET (VITAMIN B-12) PO SCH (07:36)
[2021-01-02] MEDS: ASPIRIN 81 MG ECTAB PO SCH (07:36)
[2021-01-02] MEDS: FLUTICASONE PROPIONATE NA SPR 16 GM BTL SCH ×2 (07:36→20:52)
[2021-01-02] MEDS: ATORVASTATIN 40 MG TAB PO SCH (07:36)
[2021-01-02] MEDS: ISOSORBIDE MONO EXTENDED REL 60 MG TABCR PO SCH (07:36)
[2021-01-02] MEDS: CLOPIDOGREL BISULFATE 75 MG TAB PO SCH (07:36)
[2021-01-02] MEDS: FAMOTIDINE 20 MG TAB PO SCH ×2 (07:37→20:52)
[2021-01-02] MEDS: METOPROLOL TARTRATE 25 MG TAB PO SCH ×2 (07:37→20:52)
--- NOTE | 2021-01-02 20:00 | Hospitalist Progress Note ---
Date of Service January 02, 2021 Assessment & Plan (1) Stroke-like symptoms: Plan: Patient with dizziness, blurred vision, left arm and leg weakness-symptoms resolved -pt vague and inconsistent historian (as to me reports that she had dizziness that was described as "spinning" and generalized weakness) -CT of the head: No acute intracranial process -CTA of the head and neck: Moderate plaque of the bilateral carotids. Moderate to severe right vertebral artery stenosis -MRI of the brain: Chronic changes without acute intracranial process -Echocardiogram: Mild concentric LVH. EF 60 to 65%. Mild MR. -Patient takes Plavix chronically. Her current symptoms seem more consistent with labyrinthitis/vertigo; however, that would not attribute to unilateral weakness that she did noted upon presentation (which she now denies) -At any rate, patient does have significant carotid stenosis. We will add aspirin. Given her age and risk for being on dual antiplatelet therapy, will also add PPI for GI prophylaxis - PT/OT consulted - Neuro checks q4 hours - cont Atorvastatin 80mg QHS -*As outlined above, symptoms seem more consistent with labyrinth-itis with vertigo. Will change Antivert to routine for 3 doses and then back to as needed. Continue Flonase. Consult PT for Noe maneuver. Continue PT/OT. On 01/02 Dizziness has improved Reviewed MRI negative. Awaiting placement. Likely discharge on Sunday. (2) Vertigo: Plan: Patient with episodes in the past as per HPI -se above (3) Hyponatremia: Plan: NA 128 associated with hypochloridemia- consistent with vomiting x2 today and decrease intake secondary to #1 and #2 - IVF upfront - currently resolved. - continue to trend (4) Carotid stenosis: Plan: -Add aspirin to Plavix -Continue high intensity statin -Consider referral to vascular as an outpatient (5) UTI (urinary tract infection): Plan: UC with pansensitive E.Coli - associated with increased frequency per patient report - 1gm rocephin given in EMD. 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 EF this admission is 60 - 65%. - Catheterization at that time revealed 40% LAD scattered disease, 40% circumflex scattered lesion, 60-70% RCA disease. - ECHO revealed LVEF was measured 40% with akinetic anterior apex. - Continue statin - Continue Metoprolol and Isosorbide - Patient was on ASA and Plavix previously (2018)- ASA was discontinued secodary to bruising -Given carotid disease and the fact that I cannot say she did not have a TIA, will restart aspirin. Add pantoprazole for GI prophylaxis given age and risk for bleeding (7) Arthralgia of multiple sites: Plan: Continue tylenol - history of REJI positive as well- no further records available for review (8) Seizure: Plan: She has not had a seizure for may years- since her daughter was 9 >20 years ago - continues on Phenytoin, and Phenobarbital - Levels respectively (7.2)(13.6) (9) Hyperlipidemia: Plan: Continue Atrovastatin (10) Hypertension: Plan: -Continue isosorbide and metoprolol as prior to hospitalization (11) Right shoulder pain: Plan: Chronic - with rotator cuff injury and other shoulder fracture - continue Tylenol Plan: - PT/OT on consult - ? d/c tomorrow - ASA added to plavix regimen. Also now on PPI for GI proph - requested noe maneuver from PT Admission and Anticipated Discharge Date Admission Date: December 27, 2020 Subjective 85 yo female reports her dizziness which appears to be intermittent since her 40s, has been gradually decreasing in intensity while she has been here. Review of Systems Review of Systems: All systems reviewed & are unremarkable except as noted in HPI & below Physical Exam Physical Exam: General: Resting comfortably in her hospital bed. NAD. HEENT: No longer having nystagmus Buccal mucosa is moist and pink Neck: No JVD. Negative hepatojugular reflex Cardiac: RRR 1/6 ARLENE Lungs: CTA without W/R/R Abdomen: Normoactive X4. Soft and nontender in all quadrants. Extremities: No peripheral clubbing cyanosis or edema Neuro: A&O X4 cranial nerves II through XII are grossly intact no focal neuro deficits Skin: No obvious skin lesions or rashes Psych: Appropriate affect pleasant and cooperative Results & Data Results & Data ([facility]) Vital Signs (Past 12 Hours) Vital Signs Temp Pulse Resp BP BP Pulse Ox 01/02/21 19:00 36.9 C 74 20 182/75 H 98 10/10/21 15:47 36.9 C 71 18 151/65 H 97 01/02/21 11:46 36.9 C 68 16 153/75 H 96 PG Care Time/CCT Total # of Minutes Spent Total Time Spent with Patient: Total time spent is greater than 50% in coordination of care (as documented) at patient's floor/unit and/or counseling patient: Coding Level of Care Code 32709 Subseq Hosp Care Lvl 2 Diagnoses Stroke-like symptoms R29.90 Vertigo R42 Hyponatremia E87.1 Carotid stenosis I65.29 UTI (urinary tract infection) N39.0 Coronary artery disease I25.10 Arthralgia of multiple sites M25.50 Seizure R56.9 Hyperlipidemia E78.5 Hypertension I10 Hypertension type: essential hypertension Right shoulder pain M25.511 (1) Hypertension Hypertension type: essential hypertension Qualified Code(s): I10 - Essential (primary) hypertension
[2021-01-02] MEDS: PHENYTOIN SODIUM ER 100 MG CAP PO SCH (20:51)
[2021-01-03] MEDS: FAMOTIDINE 20 MG TAB PO SCH ×2 (08:29→20:13)
[2021-01-03] MEDS: FLUTICASONE PROPIONATE NA SPR 16 GM BTL SCH ×2 (08:29→20:13)
[2021-01-03] MEDS: CLOPIDOGREL BISULFATE 75 MG TAB PO SCH (08:30)
[2021-01-03] MEDS: ASPIRIN 81 MG ECTAB PO SCH (08:30)
[2021-01-03] MEDS: ATORVASTATIN 40 MG TAB PO SCH (08:30)
[2021-01-03] MEDS: METOPROLOL TARTRATE 25 MG TAB PO SCH ×2 (08:30→20:14)
[2021-01-03] MEDS: SENNA 8.6 MG TAB PO PRN (08:31)
[2021-01-03] MEDS: CYANOCOBALAMIN 500 MCG TABLET (VITAMIN B-12) PO SCH (08:31)
[2021-01-03] MEDS: ISOSORBIDE MONO EXTENDED REL 60 MG TABCR PO SCH (08:31)
[2021-01-03] MEDS: BUMETANIDE 1 MG TAB PO SCH (08:31)
[2021-01-03] MEDS: PANTOprazole 40 MG TAB PO SCH (08:32)
--- NOTE | 2021-01-03 13:27 | Hospitalist Progress Note ---
Date of Service January 03, 2021 Assessment & Plan (1) Stroke-like symptoms: Plan: Patient with dizziness, blurred vision, left arm and leg weakness-symptoms resolved -pt vague and inconsistent historian (as to me reports that she had dizziness that was described as "spinning" and generalized weakness) -CT of the head: No acute intracranial process -CTA of the head and neck: Moderate plaque of the bilateral carotids. Moderate to severe right vertebral artery stenosis -MRI of the brain: Chronic changes without acute intracranial process -Echocardiogram: Mild concentric LVH. EF 60 to 65%. Mild MR. -Patient takes Plavix chronically. Her current symptoms seem more consistent with labyrinthitis/vertigo; however, that would not attribute to unilateral weakness that she did noted upon presentation (which she now denies) -At any rate, patient does have significant carotid stenosis. aspirin has been added. Given her age and risk for being on dual antiplatelet therapy, has also been started on Protonix for GI prophylaxis - PT/OT on board and recommending short term rehab-- case mgmt on board. - cont high intensity statin therapy-- Atorvastatin 80mg QHS (2) Vertigo: Plan: Patient with episodes in the past as per HPI -*As outlined above, symptoms seem more consistent with labyrinthitis/ vertigo. continue antivert and flonase symptoms overall better but persistent (also very inconsistent per provider). I have asked PT to perform an noe Maneuver to see if this can help with symptoms Patient does report intermittent tinnitus and changes in her hearing. Perhaps she has been years. Her vertigo seems to be longstanding with occasional flares will Patient on a diuretic (see below). Will transition simply to a fluid restricted diet Will need ENT as an outpatient for vestibular evaluation (3) Hyponatremia: Plan: NA 128 associated with hypochloridemia- consistent with vomiting x2 today and decrease intake secondary to #1 and #2 - IVF upfront - Na++ 131 today. - is on chronic Bumex (reported Ef of 40% in the past, Currently 60-65%). - hold bumex-- May not need bumex but instead a fluid restricted diet. (4) Carotid stenosis: Plan: -Add aspirin to Plavix -Continue high intensity statin -Consider referral to vascular as an outpatient (5) UTI (urinary tract infection): Plan: UC with pansensitive E.Coli - associated with increased frequency per patient report - 1gm rocephin given in EMD. 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 EF this admission is 60 - 65%. - Catheterization at that time revealed 40% LAD scattered disease, 40% circumflex scattered lesion, 60-70% RCA disease. - ECHO revealed LVEF was measured 40% with akinetic anterior apex. - Continue statin - Continue Metoprolol and Isosorbide - Patient was on ASA and Plavix previously (2019)- ASA was discontinued secodary to bruising - Given carotid disease and the fact that I cannot say she did not have a TIA, ASA has since been restarted. Pantoprazole added for GI prophylaxis given age a nd risk for bleeding - hold (and potentially stop) bumex (given downtrending Na++ which may have been contributing to dizziness upfront) (7) Arthralgia of multiple sites: Plan: Continue tylenol - history of REJI positive as well- no further records available for review (8) Seizure: Plan: She has not had a seizure for may years- since her daughter was 9 >20 years ago - continues on Phenytoin, and Phenobarbital - Levels respectively (7.2)(13.6) (9) Hyperlipidemia: Plan: Continue Atrovastatin (10) Hypertension: Plan: -Continue isosorbide and metoprolol as prior to hospitalization (11) Right shoulder pain: Plan: Chronic - with rotator cuff injury and other shoulder fracture - continue Tylenol Plan: - requested noe maneuver from PT - case mgmt on board to help with placement - continue PT/OT while in house. - called and updated daughter Debbie - plan of care to be D/W Dr. Herring. Further orders as warrented Admission and Anticipated Discharge Date Admission Date: December 27, 2020 Subjective Patient seen on daily rounds today. Remains a vague and inconsistent historian. Patient was hospitalized on 12/27 with stroke like symptoms (including dizziness that was described as spinning sensation, left arm and left leg weakness, and changes in her vision. CT of the head showed no acute pathology. CTA of the head and neck showed moderate to severe stenosis of the right vertebral artery with moderate plaque in the proximal bilateral ICA but no acute infarct. MRI of the brain showed no acute ischemic process When I evaluated patient on 12/29, her symptoms were vague and very inconsistent. She was denying any left arm/leg weakness and reported that her visual deficits were not new (described it as if she were "looking through a grid"). At any rate, she was started on Antivert. In addition, Flonase was added due to concern for labyrinthitis as TMs appeared retracted. She chronically takes Plavix and high intensity statin therapy. Aspirin was added as an acute neurological event could not be ruled out. She is receiving Antivert and reports that her dizziness has overall improved but remains. I have asked therapy to perform an Noe maneuverthis is pending. Upon further questioning, she does report that occasionally she has ringing in her ears and her hearing has overall decreased over the years. PT/OT is recommending short-term rehab. Case management is on board. In addition, patient sodium was slightly low upon arrival (128) was was thought to be volume contraction due to nausea and vomiting noted prior to arrival. In addition, patient did have a urinary tract infection and completed a full course of Cipro. Review of Systems Review of Systems: All systems reviewed and are unremarkable except as noted in HPI and below Denies fevers, chills, headache, nasal congestion, sore throat, cough, chest pain, shortness of breath, palpitations, orthopnea, PND, abdominal pain, nausea, vomiting, diarrhea, constipation, dysuria, hematuria, frequency, back pain, joint pain or swelling, easy bruising or bleeding, skin lesions or rashes. Physical Exam Physical Exam: General: Resting comfortably in her hospital bed. NAD. HEENT: Buccal mucosa is moist and pink. nystagmus in the left lateral gaze Neck: No JVD. Negative hepatojugular reflex Cardiac: RRR with 1/6 ARLENE Lungs: CTA without W/R/R Abdomen: Normoactive X4. Soft and nontender in all quadrants. Extremities: No peripheral clubbing cyanosis or edema Neuro: A&O X4 cranial nerves II through XII are grossly intact no focal neuro deficits Skin: No obvious skin lesions or rashes Psych: Appropriate affect pleasant and cooperative Results & Data Results & Data ([facility]) Vital Signs (Past 12 Hours) Vital Signs Temp Pulse Pulse Resp BP Pulse Ox 01/03/21 12:02 36.6 C 60 18 110/63 95 01/03/21 07:42 36.7 C 60 20 165/73 H 97 01/03/21 07:08 69 01/03/21 03:51 36.6 C 62 18 135/67 97 Laboratory Results 12/30/20 07:12 12/30/20 07:12 PG Care Time/CCT Total # of Minutes Spent Total Time Spent with Patient: Total time spent is greater than 50% in coordination of care (as documented) at patient's floor/unit and/or counseling patient: Coding [place] [address] Subseq Hosp Care Lvl 2 Patient Type Established History Detailed Exam Detailed Medical Decision Making Moderate Complexity Diagnoses Stroke-like symptoms R29.90 Vertigo R42 Hyponatremia E87.1 Carotid stenosis I65.29 UTI (urinary tract infection) N39.0 Coronary artery disease I25.10 Arthralgia of multiple sites M25.50 Seizure R56.9 Hyperlipidemia E78.5 Hypertension I10 Hypertension type: essential hypertension Right shoulder pain M25.511 (1) Hypertension Hypertension type: essential hypertension Qualified Code(s): I10 - Essential (primary) hypertension
[2021-01-03] MEDS: PHENYTOIN SODIUM ER 100 MG CAP PO SCH (20:13)
[2021-01-04] MEDS: METOPROLOL TARTRATE 25 MG TAB PO SCH ×2 (08:38→20:20)
[2021-01-04] MEDS: ISOSORBIDE MONO EXTENDED REL 60 MG TABCR PO SCH (08:38)
[2021-01-04] MEDS: CYANOCOBALAMIN 500 MCG TABLET (VITAMIN B-12) PO SCH (08:39)
[2021-01-04] MEDS: FAMOTIDINE 20 MG TAB PO SCH ×2 (08:39→20:20)
[2021-01-04] MEDS: PANTOprazole 40 MG TAB PO SCH (08:39)
[2021-01-04] MEDS: ASPIRIN 81 MG ECTAB PO SCH (08:39)
[2021-01-04] MEDS: ATORVASTATIN 40 MG TAB PO SCH (08:39)
[2021-01-04] MEDS: CLOPIDOGREL BISULFATE 75 MG TAB PO SCH (08:39)
[2021-01-04] MEDS: FLUTICASONE PROPIONATE NA SPR 16 GM BTL SCH ×2 (08:40→20:21)
[2021-01-04] MEDS: POLYETHYLENE (MIRALAX) 17 GM PACK PO SCH (08:41)
[2021-01-04] MEDS: ACETAMINOPHEN 325 MG TAB PO PRN ×2 (08:41→20:21)
--- NOTE | 2021-01-04 15:36 | Hospitalist Progress Note ---
Date of Service January 04, 2021 Assessment & Plan (1) Stroke-like symptoms: Plan: Patient initially with dizziness, blurred vision, left arm and leg weakness- symptoms resolved -pt vague and inconsistent historian-- inconsistent during this hospitalization (as to me reports that she had dizziness that was described as "spinning" and generalized weakness) -CT of the head: No acute intracranial process -CTA of the head and neck: Moderate plaque of the bilateral carotids. Moderate to severe right vertebral artery stenosis -MRI of the brain: Chronic changes without acute intracranial process -Echocardiogram: Mild concentric LVH. EF 60 to 65%. Mild MR. -Patient takes Plavix chronically. Her current symptoms seem more consistent with labyrinthitis/vertigo; however, that would not attribute to unilateral weakness that she did noted upon presentation (which she now denies). Can not argue that she did not have a TIA -At any rate, patient does have significant carotid stenosis. aspirin has been added. Given her age and risk for being on dual antiplatelet therapy, has also been started on Protonix for GI prophylaxis - PT/OT on board and recommending short term rehab-- case mgmt on board. - cont high intensity statin therapy-- Atorvastatin 80mg QHS (2) Vertigo: Plan: Patient with episodes in the past as per HPI -*As outlined above, symptoms seem more consistent with labyrinthitis/ vertigo. continue antivert and flonase symptoms overall better but persistent (also very inconsistent per provider). I have asked PT to perform an noe Maneuver to see if this can help with symptoms Patient does report intermittent tinnitus and changes in her hearing. Perhaps she has been years. Her vertigo seems to be longstanding with occasional flares will Patient on a diuretic (see below). Will transition simply to a fluid restricted diet Will need ENT as an outpatient for vestibular evaluation (3) Hyponatremia: Plan: upfront--NA 128 associated with hypochloridemia- consistent with vomiting x2 today and decrease intake secondary to #1 and #2 - IVF initially, sodium returned to normal at 135 - Bumex held upfront but resumed - with resumption of bumex, sodium started to drop again. - (reported Ef of 40% in the past, Currently 60-65%). - continue to hold bumex-- May not need bumex any longer but instead a fluid/Na++ restricted diet. (4) Carotid stenosis: Plan: -Add aspirin to Plavix -Continue high intensity statin -Consider referral to vascular as an outpatient (5) UTI (urinary tract infection): Plan: UC with pansensitive E.Coli - associated with increased frequency per patient report - 1gm rocephin given in EMD. 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 EF this admission is 60 - 65%. - Catheterization at that time revealed 40% LAD scattered disease, 40% circumflex scattered lesion, 60-70% RCA disease. - ECHO revealed LVEF was measured 40% with akinetic anterior apex (now with reported Ef of 60-65% without reported akinetic apex-- could be improvement with ongoing BB) - Continue statin - Continue Metoprolol and Isosorbide - Patient was on ASA and Plavix previously (2018)- ASA was discontinued secodary to bruising - Given carotid disease and the fact that I cannot say she did not have a TIA, ASA has since been restarted. Pantoprazole added for GI prophylaxis given age and risk for bleeding - hold (and potentially stop) bumex (given downtrending Na++ which may have been contributing to dizziness upfront) (7) Arthralgia of multiple sites: Plan: Continue tylenol - history of REJI positive as well- no further records available for review (8) Seizure: Plan: She has not had a seizure for may years- since her daughter was 9 >20 years ago - continues on Phenytoin, and Phenobarbital - Levels respectively (7.2)(13.6) (9) Hyperlipidemia: Plan: Continue Atrovastatin (10) Hypertension: Plan: -Continue isosorbide and metoprolol as prior to hospitalization (11) Right shoulder pain: Plan: Chronic - with rotator cuff injury and other shoulder fracture - continue Tylenol Plan: - requested noe maneuver from PT - case mgmt on board to help with placement - continue PT/OT while in house. - plan for likely D/C tomorrow (when bed available-- SNF) - plan of care to be D/W Dr. Herring. Further orders as warranted Admission and Anticipated Discharge Date Admission Date: December 27, 2020 Subjective Patient seen on daily rounds today. Still with vertigo/dizziness but no other symptoms to speak of. Denies F/C, CP, SOB, abd pain, N/V. I am still awaiting PT to repeat an noe maneuver given continued vertiginous symptoms Review of Systems Review of Systems: All systems reviewed and are unremarkable except as noted in HPI and below Denies fevers, chills, headache, nasal congestion, sore throat, cough, chest pain, shortness of breath, palpitations, orthopnea, PND, abdominal pain, nausea, vomiting, diarrhea, constipation, dysuria, hematuria, frequency, back pain, joint pain or swelling, easy bruising or bleeding, skin lesions or rashes. Physical Exam Physical Exam: General: Resting comfortably in her hospital bed. NAD. HEENT: Buccal mucosa is moist and pink. nystagmus in the left lateral gaze Neck: No JVD. Negative hepatojugular reflex Cardiac: RRR with 1/6 ARLENE Lungs: CTA without W/R/R Abdomen: Normoactive X4. Soft and nontender in all quadrants. Extremities: No peripheral clubbing cyanosis or edema Neuro: A&O X4 cranial nerves II through XII are grossly intact no focal neuro deficits Skin: No obvious skin lesions or rashes Psych: Appropriate affect pleasant and cooperative Results & Data Results & [facility] ([facility] Vital Signs (Past 12 Hours) Vital Signs Temp Pulse Resp BP Pulse Ox 01/04/21 15:08 36.5 C 65 18 143/67 H 96 01/04/21 11:28 36.4 C L 66 19 133/74 94 01/04/21 08:16 36.6 C 71 20 159/67 H 97 Laboratory Results No lab data today PG Care Time/CCT Total # of Minutes Spent Total Time Spent with Patient: Total time spent is greater than 50% in coordination of care (as documented) at patient's floor/unit and/or counseling patient: C[place] [address] Subseq Hosp Care Lvl 1 Patient Type Established History Problem Focused Exam Problem Focused Medical Decision Making Straight Forward Diagnoses Stroke-like symptoms R29.90 Vertigo R42 Hyponatremia E87.1 Carotid stenosis I65.29 UTI (urinary tract infection) N39.0 Coronary artery disease I25.10 Arthralgia of multiple sites M25.50 Seizure R56.9 Hyperlipidemia E78.5 Hypertension I10 Hypertension type: essential hypertension Right shoulder pain M25.511 (1) Hypertension Hypertension type: essential hypertension Qualified Code(s): I10 - Essential (primary) hypertension
[2021-01-04] MEDS: PHENYTOIN SODIUM ER 100 MG CAP PO SCH (20:20)
[2021-01-05 08:21] LABS: BUN Creatinine Ratio 31.4 (10-20); Calcium 9.1 mg/dl (8.5-10.1); Creatinine Clr Calc Pharmacy 64.6 ml/min; Est GFR (African American) 100.3 ml/min; Est GFR (Non-African American) 86.6 ml/min
[2021-01-05] MEDS: POLYETHYLENE (MIRALAX) 17 GM PACK PO SCH (08:57)
[2021-01-05] MEDS: ATORVASTATIN 40 MG TAB PO SCH (08:59)
[2021-01-05] MEDS: PANTOprazole 40 MG TAB PO SCH (08:59)
[2021-01-05] MEDS: CYANOCOBALAMIN 500 MCG TABLET (VITAMIN B-12) PO SCH (08:59)
[2021-01-05] MEDS: ASPIRIN 81 MG ECTAB PO SCH (08:59)
[2021-01-05] MEDS: FAMOTIDINE 20 MG TAB PO SCH ×2 (08:59→21:42)
[2021-01-05] MEDS: CLOPIDOGREL BISULFATE 75 MG TAB PO SCH (08:59)
[2021-01-05] MEDS: FLUTICASONE PROPIONATE NA SPR 16 GM BTL SCH ×2 (09:00→21:42)
[2021-01-05] MEDS: METOPROLOL TARTRATE 25 MG TAB PO SCH ×2 (09:00→21:43)
[2021-01-05] MEDS: ISOSORBIDE MONO EXTENDED REL 60 MG TABCR PO SCH (09:00)
--- NOTE | 2021-01-05 17:16 | Hospitalist Progress Note ---
Date of Service January 05, 2021 Assessment & Plan (1) Stroke-like symptoms: Plan: Patient initially with dizziness, blurred vision, left arm and leg weakness- symptoms resolved -pt vague and inconsistent historian-- inconsistent during this hospitalization (as to me reports that she had dizziness that was described as "spinning" and generalized weakness) -CT of the head: No acute intracranial process -CTA of the head and neck: Moderate plaque of the bilateral carotids. Moderate to severe right vertebral artery stenosis -MRI of the brain: Chronic changes without acute intracranial process -Echocardiogram: Mild concentric LVH. EF 60 to 65%. Mild MR. -Patient takes Plavix chronically. Her current symptoms seem more consistent with labyrinthitis/vertigo; however, that would not attribute to unilateral weakness that she did noted upon presentation (which she now denies). Can not argue that she did not have a TIA -At any rate, patient does have significant carotid stenosis. aspirin has been added. Given her age and risk for being on dual antiplatelet therapy, has also been started on Protonix for GI prophylaxis - cont high intensity statin therapy-- Atorvastatin 80mg QHS - PT/OT on board and recommending short term rehab-- case mgmt on board. Patient has been accepted [facility] however, they cannot [facility] her until tomorrow given staffing concerns (2) Vertigo: Plan: Patient with episodes in the past as per HPI -*As outlined above, symptoms seem more consistent with labyrinthitis/ vertigo. continue antivert and flonase symptoms overall better but persistent (also very inconsistent per provider). I have asked PT to perform an noe Maneuver to see if this can help with s ymptoms Patient does report intermittent tinnitus and changes in her hearing. Perhaps she has meniere's . Her vertigo seems to be longstanding with occasional flares will Patient on a diuretic (see below). Will transition simply to a fluid restricted diet Will need ENT as an outpatient for vestibular evaluation (3) Hyponatremia: Plan: upfront--NA 128 associated with hypochloridemia- consistent with vomiting x2 that was reported upfront - IVF initially, sodium returned to normal at 135 - Bumex held upfront but later resumed - with resumption of bumex, sodium started to drop again. - (reported Ef of 40% in the past, Currently 60-65%). - continue to hold bumex-- May not need bumex any longer but instead a fl uid/Na++ restricted diet -We will need follow-up on this. If Bumex needs to be resumed, would encourage resumption every other day or even Mondays, Wednesdays, Fridays. (4) Carotid stenosis: Plan: -Add aspirin to Plavix -Continue high intensity statin -Consider referral to vascular as an outpatient given high-grade stenosis (5) UTI (urinary tract infection): Plan: UC with pansensitive E.Coli - associated with increased frequency per patient report - 1gm rocephin given in EMD. 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 EF this admission is 60 - 65%. - Catheterization at that time revealed 40% LAD scattered disease, 40% circumflex scattered lesion, 60-70% RCA disease. - ECHO revealed LVEF was measured 40% with akinetic anterior apex (now with reported Ef of 60-65% without reported akinetic apex-- could be improvement with ongoing BB) - Continue statin - Continue Metoprolol and Isosorbide - Patient was on ASA and Plavix previously (2018)- ASA was discontinued secodary to bruising - Given carotid disease and the fact that I cannot say she did not have a TIA, ASA has since been restarted. Pantoprazole added for GI prophylaxis given age and risk for bleeding - bumex stopped (given downtrending Na++ which may have been contributing to dizziness upfront). As outlined above, may no longer be needed. If needs to be resumed, would consider reduction in dose (every other day or Mondays, Wednesdays, Fridays) (7) Arthralgia of multiple sites: Plan: Continue tylenol - history of REJI positive as well- no further records available for review (8) Seizure: Plan: She has not had a seizure for may years- since her daughter was 9 >20 years ago - continues on Phenytoin, and Phenobarbital - Levels respectively (7.2)(13.6) (9) Hyperlipidemia: Plan: Continue Atrovastatin (10) Hypertension: Plan: -Continue isosorbide and metoprolol as prior to hospitalization (11) Right shoulder pain: Plan: Chronic - with rotator cuff injury and other shoulder fracture - continue Tylenol Plan: -Authorization and bed obtained for [facility] unable to send today given staffing issues. Plan is for discharge tomorrow -Daughter was updated Admission and Anticipated Discharge Date Admission Date: December 27, 2020 Subjective Patient seen on daily rounds today. Voices no complaints or concerns. Has been accepted to [facility] for inpatient rehabilitation. Bed is available and authorization obtained; however, [facility] would not accept patient until tomorrow given staffing issues. Review of Systems Review of Systems: All systems reviewed and are unremarkable except as noted in HPI and below Still complaining of some mild vertigo but overall better. Denies fevers, chills, headache, nasal congestion, sore throat, cough, chest pain, shortness of breath, palpitations, orthopnea, PND, abdominal pain, nausea, vomiting, diarrhea, constipation, dysuria, hematuria, frequency, back pain, joint pain or swelling, easy bruising or bleeding, skin lesions or rashes. Physical Exam Physical Exam: General: Resting comfortably in her hospital bed. NAD. HEENT: Buccal mucosa is moist and pink. nystagmus in the left lateral gaze Neck: No JVD. Negative hepatojugular reflex Cardiac: RRR with 1/6 ARLENE Lungs: CTA without W/R/R Abdomen: Normoactive X4. Soft and nontender in all quadrants. Extremities: No peripheral clubbing cyanosis or edema Neuro: A&O X4 cranial nerves II through XII are grossly intact no focal neuro deficits Skin: No obvious skin lesions or rashes Psych: Appropriate affect pleasant and cooperative Results & Data Results & Data ([facility]) Vital Signs (Past 12 Hours) Vital Signs Temp Pulse Resp BP BP Pulse Ox 01/05/21 15:15 36.7 C 66 18 141/65 H 96 01/05/21 07:39 36.6 C 68 18 167/73 H 97 Laboratory Results Laboratory Results - last 24 hr 01/05/21 01/05/21 01/05/21 07:20 14:30 14:30 Sodium 136 Potassium 4.0 Chloride 101 Carbon Dioxide 29 Anion Gap 6.0 BUN 17 Creatinine 0.53 L Est Cr Clr Drug Dosing 64.6 Est GFR ( Amer) 100.3 Est GFR (Non-Af Amer) 86.6 BUN/Creatinine Ratio 31.4 H Glucose 98 Calcium 9.1 COVID-19 Eval Order Covid19 at [facility] SARS-CoV-2 (PCR) Cancelled SARS-CoV-2, RNA, NAAT 01/05/21 14:30 Sodium Potassium Chloride Carbon Dioxide Anion Gap BUN Creatinine Est Cr Clr Drug Dosing Est GFR ( Amer) Est GFR (Non-Af Amer) BUN/Creatinine Ratio Glucose Calcium COVID-19 Eval Order SARS-CoV-2 (PCR) SARS-CoV-2, RNA, NAAT NEGATIVE PG Care Time/CCT Total # of Minutes Spent Total Time Spent with Patient: Total time spent is greater than 50% in coordination of care (as documented) at patient's floor/unit and/or counseling patient: Coding [place] [address] Subseq Hosp Care Lvl 1 Patient Type Established History Problem Focused Exam Problem Focused Medical Decision Making Straight Forward Diagnoses Stroke-like symptoms R29.90 Vertigo R42 Hyponatremia E87.1 Carotid stenosis I65.29 UTI (urinary tract infection) N39.0 Coronary artery disease I25.10 Arthralgia of multiple sites M25.50 Seizure R56.9 Hyperlipidemia E78.5 Hypertension I10 Hypertension type: essential hypertension Right shoulder pain M25.511 (1) Hypertension Hypertension type: essential hypertension Qualified Code(s): I10 - Essential (primary) hypertension
[2021-01-05] MEDS: PHENYTOIN SODIUM ER 100 MG CAP PO SCH (21:43)
[2021-01-06] MEDS: METOPROLOL TARTRATE 25 MG TAB PO SCH (08:12)
[2021-01-06] MEDS: CLOPIDOGREL BISULFATE 75 MG TAB PO SCH (08:13)
[2021-01-06] MEDS: FAMOTIDINE 20 MG TAB PO SCH (08:13)
[2021-01-06] MEDS: ASPIRIN 81 MG ECTAB PO SCH (08:13)
[2021-01-06] MEDS: CYANOCOBALAMIN 500 MCG TABLET (VITAMIN B-12) PO SCH (08:13)
[2021-01-06] MEDS: ISOSORBIDE MONO EXTENDED REL 60 MG TABCR PO SCH (08:13)
[2021-01-06] MEDS: ATORVASTATIN 40 MG TAB PO SCH (08:13)
[2021-01-06] MEDS: PANTOprazole 40 MG TAB PO SCH (08:13)
[2021-01-06] MEDS: POLYETHYLENE (MIRALAX) 17 GM PACK PO SCH (08:14)
[2021-01-06] MEDS: FLUTICASONE PROPIONATE NA SPR 16 GM BTL SCH (08:14)
--- NOTE | 2021-01-06 16:24 | Discharge Summary ---
Date of Service January 06, 2021 Admission HPI Per Admitting Provider 85 YOF with past medical history of: NSTEMI, Takotsubo, CAD, Chronic gait disturbance, Seizures (on Phenytoin and phenobarbital), HTN, HLD. Patient comes to the emergency room today for complaints of dizziness, room spinning, weakness, blurry vision. Patient states she got up this morning around 0730 and was feeling well just fatigued. She had breakfast and had started feeling some nausea and vomiting x2 that she said progressed to vertiginous symptoms that she has had in the past. This was associated with left sided weakness of her leg and then her arm. She was able to get to bed and laid down for a bit and then called her daughter when she woke up still not feeling back to normal. Her daughter was in the room with her and said that was around 1530. The patient reports 2 other episodes like this in the past. The most recent per chart review shows in 2019, which again was associated with vomiting weakness. Her imaging at that time was CT scan with micro vascular ischemic changes and cerebral vascular calcifications and cisterna magna and normal MRI, no carotid imaging done at that time. The patient feels as her symptoms are improved since she came in but still feels week and fatigued. In the EMD the patient had a CTA of the head and neck and head CT performed. CTA revealed moderate to severe stenosis of the origin of the right vertebral artery and moderate calcified plaque within the proximal bilateral ICA without significant stenosis. She had routine labs done which revealed a NA level of 128 and chloride of 96, she was given 1gm Rocephin for concern of a UTI. The patient has some horizontal nystagmus noted on exam, left lower leg weakness and ataxia. She has no loss of fluency of reading or speech. Patient will be admitted for continued CVA workup. Will obtain MRI of the brain and ECHO. ASA given on admission. She was not a tPA candidate secondary to time of last known well. Principal Diagnosis 1. Stroke like symptoms (left arm and leg weakness)-- resolved. ? TIA 2. Vertigo- ? BPPV vs meniere's--> need ENT FU for vestibular eval and tx 3. Hyponatremia- resolved. Hypovolemic hyponatremia 4. Carotid Stenosis 5. UTI- completed full course of antibiotic Discharge Exam General: Resting comfortably in her hospital bed. NAD. HEENT: Buccal mucosa is moist and pink. nystagmus in the left lateral gaze but improved Neck: No JVD. Negative hepatojugular reflex Cardiac: RRR with 1/6 ARLENE Lungs: CTA without W/R/R Abdomen: Normoactive X4. Soft and nontender in all quadrants. Extremities: No peripheral clubbing cyanosis or edema Neuro: A&O X4 cranial nerves II through XII are grossly intact no focal neuro deficits Skin: No obvious skin lesions or rashes Psych: Appropriate affect pleasant and cooperative Discharge Data Allergies Allergy/AdvReac Type Severity Reaction Status Date / Time iodine Allergy Intermediate "makes me Verified 12/27/20 18:31 almost pass out" azithromycin Allergy Unknown Unknown Verified 12/27/20 18:31 simvastatin [From Zocor] Allergy Unknown Unknown Verified 12/27/20 18:31 Sulfa (Sulfonamide Allergy Unknown Unknown Verified 12/27/20 18:31 Antibiotics) sulfamethoxazole Allergy Unknown Unknown Verified 12/27/20 18:31 Consultations 12/27/20 20:53 ED Decision to Admit Stat Ordered Studies 12/27/20 17:07 CT angio head w con Stat IMPRESSION: 1. No central vessel occlusion. No intracranial aneurysm. 2. Moderate calcified atherosclerotic plaque within bilateral cavernous carotids. CT angio neck with con Stat IMPRESSION: 1. Moderate calcified atherosclerotic plaque within the proximal bilateral internal carotid arteries without significant stenosis. 2. 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 3. No dissection within the major vessels of the neck. CT head/brain wo con Stat IMPRESSION: No acute intracranial findings. No change in appearance of the brain. 12/28/20 04:13 MR brain wo con Routine IMPRESSION: Chronic volume loss and age related white matter changes without evidence of acute abnormality. Hospital Course (1) Stroke-like symptoms: Patient initially with dizziness, blurred vision, left arm and leg weakness-symptoms resolved -pt vague and inconsistent historian-- inconsistent during this hospitalization (as to me reports that she had dizziness that was described as "spinning" and generalized weakness) -CT of the head: No acute intracranial process -CTA of the head and neck: Moderate plaque of the bilateral carotids. Moderate to severe right vertebral artery stenosis -MRI of the brain: Chronic changes without acute intracranial process -Echocardiogram: Mild concentric LVH. EF 60 to 65%. Mild MR. -Patient takes Plavix chronically. Her current symptoms seem more consistent with labyrinthitis/vertigo; however, that would not attribute to unilateral weakness that she did noted upon presentation (which she now denies). Can not argue that she did not have a TIA -At any rate, patient does have significant carotid stenosis. aspirin has been added. Given her age and risk for being on dual antiplatelet therapy, has also been started on Protonix for GI prophylaxis - cont high intensity statin therapy-- Atorvastatin 80mg QHS - PT/OT on board and recommending short term rehab-- case mgmt on board. Patient has been accepted and an authorization has been granted for [facility]; however, they cannot accept her until tomorrow given staffing concerns (2) Vertigo: Patient with episodes in the past as per HPI -*As outlined above, symptoms seem more consistent with labyrinthitis/ vertigo. continue antivert and flonase symptoms overall better but persistent (also very inconsistent per provider). Joselo maneuver done with minimal improvement. Patient does report intermittent tinnitus and changes in her hearing. Perhaps she has meniere's . Her vertigo seems to be longstanding with occasional flares will Patient on a diuretic (see below). Will transition simply to a fluid restricted diet Will need ENT as an outpatient for vestibular evaluation (3) Hyponatremia: upfront--NA 128 associated with hypochloridemia- consistent with vomiting x2 that was reported upfront - IVF initially, sodium returned to normal at 135 - Bumex held upfront but later resumed - with resumption of bumex, sodium started to drop again. - (reported Ef of 40% in the past, Currently 60-65%). - continue to hold bumex-- May not need bumex any longer but instead a fluid/Na++ restricted diet -Will need follow-up on this. If Bumex needs to be resumed, would encourage resumption every other day or even Mondays, Wednesdays, Fridays. (4) Carotid stenosis: -high grade stenosis at the origin of the right veterbral artery -add aspirin to Plavix -Continue high intensity statin -Consider referral to vascular as an outpatient given high-grade stenosis (5) UTI (urinary tract infection): UC with pansensitive E.Coli - associated with increased frequency per patient report - 1gm rocephin given in EMD. - completed full course of abx therapy (cipro) for uncomplicated UTI (6) Coronary artery disease: Coronary disease and stress-induced cardiomyopathy (takotsubo cardiomyopathy) 07/2016-subsequently resolved. EF this admission is 60 - 65%. - Catheterization at that time revealed 40% LAD scattered disease, 40% circumflex scattered lesion, 60-70% RCA disease. - ECHO revealed LVEF was measured 40% with akinetic anterior apex (now with re ported Ef of 60-65% without reported akinetic apex-- could be improvement with ongoing BB) - Continue statin - Continue Metoprolol and Isosorbide - Patient was on ASA and Plavix previously (2018)- ASA was discontinued secodary to bruising - Given carotid disease and the fact that I cannot say she did not have a TIA, ASA has since been restarted. Pantoprazole added for GI prophylaxis given age and risk for bleeding - bumex stopped (given downtrending Na++ which may have been contributing to dizziness upfront). As outlined above, may no longer be needed. If needs to be resumed, would consider reduction in dose (every other day or Mondays, Wednesdays, Fridays) (7) Arthralgia of multiple sites: Continue tylenol - history of REJI positive as well- no further records available for review (8) Seizure: She has not had a seizure for may years- since her daughter was 9 >20 years ago - continues on Phenytoin, and Phenobarbital - Levels respectively (7.2)(13.6) (9) Hyperlipidemia: Continue Atrovastatin (10) Hypertension: -Continue isosorbide and metoprolol as prior to hospitalization (11) Right shoulder pain: Chronic - with rotator cuff injury and other shoulder fracture - continue Tylenol overall, just overall decline and would benefit from IP PT/OT (as recommended by therapy). D/C to [facility] today Total Time Total Time Spent Total Time Spent (In Minutes): 45 Discharge Plan Discharge Items Patient Disposition: Transfer Half-Way Fac Reason For Visit: DIZZINESS, RULE OUT CVA Discharge Diagnosis: 1. Left sided weakness (? TIA- "mini-stroke") 2. dizziness/Vertigo- follow up with ENT 3. Carotid Artery Stenosis- consider vascular referral 4. Hyponatremia- resolved with discontinuation of your Bumex Activity: Resume your previous activity Non-emergency contact: Primary Care Provider and Specialist Call non-emergency contact if: you have any medication questions and your symptoms worsen Follow-up/Referrals: Jerad Wolfe MD [Primary Care Provider] - Salome Russo MD [Physician] - 02/21/21 8:15 am Jerome Mills MD [Physician] - Diet: Heart Healthy and Low Sodium (2gm) Fluids: 1500ml (6 cups) Addtl Attending Provider Instructions: -You presented to the hospital with dizziness along with left-sided weakness -Your left-sided weakness has since resolved and it is quite possible that you have a TIA ("mini stroke") -Mini strokes are typically the precursor to "the big event". Because of the risk of potentially having a stroke, and the blockages noted in your carotid arteryaspirin has been added to your Plavix -Given your age and risk for bleeding, you have also been started on pantoprazole (to protect her stomach given dual antiplatelet therapy with Plavix and aspirin) -Follow up with vascular surgery regarding the carotid stenosis -You did have a urinary tract infection that you completed a full course of antibiotic therapy for -Sodium level was slightly low upon presentation which seemed to correct with IV hydration. Sodium level started to drop with resumption of your diuretic. With lengthy review of records, you were started on Bumex at the time that your heart function was slightly reduced. Since then, your heart function has normalized and it is quite possible that you no longer need the diuretic. With stopping the diuretic (Bumex), your sodium level has normalized. -I would advise limiting the amount of sodium and fluid in your diet to help prevent accumulation of fluid -If it turns out that you need to go back on a diuretic, would consider every other day or dosing Mondays, Wednesdays, and Fridays as opposed to daily dosing. This is at the discretion of your PCP -Would recommend follow-up BMP in 1 week -You have continued to experience persistent vertigo/dizziness throughout this hospitalization. Can continue Antivert as needed but follow up with ENT for further vestibular evaluation Pending Studies at Discharge: No Stand-Alone Forms: My [facility] Skilled Items Patient informed of condition?: Yes DNR: Yes Discharge Level of Care: Acute rehab Communicable Disease: No Discharge Prognosis: Stable Lines: None Urinary Catheter: No Medications and DC Order Prescriptions: New aspirin 81 mg Tablet,Delayed Release (Dr/Ec) 81 mg PO QAM Qty: 30 RF: 0 fluticasone propionate 50 mcg/actuation Marlette,Suspension 1 spray NA BID 7 Days Qty: 16 RF: 0 meclizine 25 mg Tablet 25 mg PO TID PRN (Reason: vertigo) Qty: 30 RF: 0 pantoprazole 40 mg Tablet,Delayed Release (Dr/Ec) 40 mg PO QAM Qty: 30 RF: 0 Continued atorvastatin 80 mg tablet 80 mg PO QAM Qty: 90 RF: 3 clopidogrel 75 mg tablet 75 mg PO DAILY Qty: 90 RF: 3 isosorbide mononitrate 60 mg tablet extended release 24 hr 60 mg PO QAM Qty: 90 RF: 3 metoprolol tartrate 25 mg tablet 25 mg PO BID Qty: 180 RF: 3 famotidine 20 mg tablet 20 mg PO BID Qty: 180 RF: 3 (DME) lancets [OneTouch Delica Lancets] 33 gauge misc See Dose Instructions .ROUTE .MEDSUPPLY Qty: 100 RF: 5 phenobarbital 16.2 mg tablet 32.4 mg PO BID Qty: 360 RF: 1 (DME) blood sugar diagnostic Strip See Dose Instructions .ROUTE .MEDSUPPLY Qty: 200 RF: 2 polyethylene glycol 3350 [Miralax] 17 gram powder in packet 17 g PO DAILY PRN (Reason: Constipation) RF: 0 acetaminophen [Tylenol Arthritis Pain] 650 mg Tablet Extended Release 650 mg PO Q12H PRN (Reason: Pain) RF: 0 cyanocobalamin (vitamin B-12) [Vitamin B-12] 1,000 mcg Tablet 1,000 mcg PO QAM RF: 0 Ex-Lax (sennosides) 15 mg Tablet 15 mg PO DAILY PRN (Reason: Constipation) RF: 0 phenytoin sodium extended 100 mg capsule 200 mg PO HS RF: 0 Discontinued bumetanide 1 mg tablet 1 mg PO DAILY Qty: 90 RF: 3 Discharge Orders: Discharge Order (Routine); Ordered 01/05/21 Ordered By: Gracia Virk/Other Patient Handouts: A1C, Prediabetes, 5 Steps for Eating Healthier Admission Data Admit Date/Time: 12/27/20 21:43 Attending Provider: Rajan Herring Admit Provider: Dionna Ortega Primary Care Provider: Jerad Wolfe Other Providers: Ryan Green ; Rm Mitchell at [place] ; Janet Pavon ; Dionna Ortega Other Interventions: Discharge Summary Assessment (RN) Last Done: 01/06/21 09:51 Supervising Physician Co-Signing Physician Notes Patient seen and examined on the day of discharge. I agree with the discharge summary by Gracia ALEXANDER. I have reviewed the chart including labs, imaging and plans for discharge. patient doing better, still with vertigo symptoms but improving, stable for rehab eating and drinking well, no chest pain/dyspnea, no fever - TIA: aspirin added to Plavix for further protection - Vertigo: continue meclizine, discharge to rehab, follow up with ENT Coding Level of Care Code D/C DAY MANAGEMENT >30 MINS Diagnoses Stroke-like symptoms R29.90 Vertigo R42 Hyponatremia E87.1 Carotid stenosis I65.29 UTI (urinary tract infection) N39.0 Coronary artery disease I25.10 Arthralgia of multiple sites M25.50 Seizure R56.9 Hyperlipidemia E78.5 Hypertension I10 Hypertension type: essential hypertension Right shoulder pain M25.511
== END 2021-01-06 12:10 | DRG 69 ==
LOC: ED 16:53 → 2S 21:43 → SUATTDRO 21:43 → 2S 12-28 04:15 → 2N 12-30 18:31 → 2W 01-04 18:48